=== PATIENT | female | born 1965 | race Caucasian/White ===

== ENCOUNTER 2022-09-14 04:06 | Inpatient (IN) | payer BC, OTHER ==
[2022-09-14] MEDS ORDERED: FUROSEMIDE 10 MG/ML 4 ML VIAL IV STA (04:15)
[2022-09-14 04:33] LABS: Basophils # (A) 0.1 k/uL (0-0.2); Basophils % (A) 1 %; Eosinophils # (A) 0.2 k/uL (0-0.7); Eosinophils % (A) 2 %; HCT 46.3 % (34.0-46.0); HGB 15.7 gm/dL (11.4-16.0); Lymphocytes # (A) 2.5 k/uL (1.0-4.8); Lymphocytes % (A) 22 %; MCHC 33.8 g/dL (31.0-37.0); MCV 88.9 fL (80.0-100.0); Monocytes # (A) 0.4 k/uL (0-1.0); Monocytes % (A) 4 %; Neutrophils # (A) 7.8 k/uL (1.3-7.7); Neutrophils % (A) 70 %; Platelet Count 189 k/uL (150-450); RBC 5.21 m/uL (3.80-5.40); RDW 13.9 % (11.5-15.5); WBC 11.2 k/uL (3.8-10.6)
[2022-09-14 04:41] LABS: Prothrombin Time 10.4 sec (9.0-12.0)
[2022-09-14 04:43] LABS: Albumin 4.7 g/dL (3.5-5.0); Calcium 9.5 mg/dL (8.4-10.2); Magnesium 1.6 mg/dL (1.6-2.3); Potassium 3.5 mmol/L (3.5-5.1); Total Bilirubin 0.8 mg/dL (0.2-1.3); Total Protein 7.3 g/dL (6.3-8.2)
--- NOTE | 2022-09-14 04:58 | XR ---
EXAMINATION TYPE: XR chest 1V portable DATE OF EXAM: 09/14/2022 COMPARISON: NONE HISTORY: Abnormal breath TECHNIQUE: Single view FINDINGS: Heart is borderline enlarged. There is moderate pulmonary airspace edema. There are chest l cyndi. Bony thorax is intact. IMPRESSION: Moderate pulmonary edema that could be congestive heart failure. Also consider RDS.
--- NOTE | 2022-09-14 05:48 | ED ---
SOB HPI - General Chief Complaint: Shortness of Breath Stated Complaint: Difficulty Breathing Time Seen by Provider: 09/14/22 04:15 Source: EMS Mode of arrival: EMS Limitations: no limitations - History of Present Illness Initial Comments: 57-year-old female with past history of hypertension, tobacco abuse presents to the emergency department in respiratory distress. EMS provided the history. States the patient had sudden onset of respiratory distress just prior to calling EMS. She denies history of cardiac or pulmonary issues. Patient was found to have an extremely elevated blood pressure. She had some lower extremity swelling. Denies history of coronary disease. No history of congestive heart failure. Does admit to some weight gain. She denies chest pain. No fevers, chills or cough. No history of DVT or PE. No sick contacts of similar symptoms. Does not use nebulizers or inhalers. HPI is limited due to the patient's respiratory distress. She was found to be saturating in the low 80s and was placed on CPAP prior to hospital arrival. No other alleviating, precipitating or modifying factors - Related Data Home Medications Medication Instructions Recorded Confirmed Aspirin EC [Ecotrin Low Dose] 81 mg PO DAILY 09/14/22 09/14/22 Cyclobenzaprine [Flexeril] 10 mg PO TID 09/14/22 09/14/22 Fluticasone Nasal [place] [Flonase 2 spray EA NOSTRIL BID 09/14/22 09/14/22 Nasal [place]] Omeprazole [PriLOSEC] 20 mg PO BID 09/14/22 09/14/22 Ondansetron Odt [Zofran ODT] 4 mg PO Q8H PRN 09/14/22 09/14/22 Propranolol HCl [Propranolol HCl 80 mg PO HS 09/14/22 09/14/22 ER] QUEtiapine [SEROquel] 500 mg PO HS 09/14/22 09/14/22 Sertraline [Zoloft] 100 mg PO DAILY 09/14/22 09/14/22 busPIRone HCL 15 mg PO TID 09/14/22 09/14/22 Previous Rx's Medication Instructions Recorded Amiodarone [Cordarone] See Rx Instructions .ROUTE 09/18/22 .COMPLEX #60 tab Apixaban [Eliquis] 5 mg PO BID #120 tab 09/18/22 Atorvastatin [Lipitor] 40 mg PO HS #90 tab 09/18/22 Furosemide [Lasix] 20 mg PO DAILY #90 tab 09/18/22 Losartan [Cozaar] 12.5 mg PO DAILY #90 tab 09/18/22 Allergies Allergy/AdvReac Type Severity Reaction Status Date / Time No Known Allergies Allergy Verified 09/14/22 09:16 Review of Systems ROS Statement: Those systems with pertinent positive or pertinent negative responses have been documented in the HPI. ROS Other: All systems not noted in ROS Statement are negative. Past Medical History Past Medical History: Hypertension Additional Past Surgical History / Comment(s): spinal implant in back, knee replacement Smoking Status: Current every day smoker Past Alcohol Use History: None Reported Past Drug Use History: None Reported - Past Family History Mother Family Medical History: Congestive Heart Failure (CHF) General Exam Limitations: no limitations General appearance: alert, in distress Head exam: Present: atraumatic, normocephalic, normal inspection Eye exam: Present: normal appearance, PERRL, EOMI. Absent: scleral icterus, conjunctival injection, periorbital swelling ENT exam: Present: normal exam, mucous membranes moist Neck exam: Present: normal inspection. Absent: tenderness, meningismus, lymphadenopathy Respiratory exam: Present: respiratory distress, rales, accessory muscle use, other (tachypnia). Absent: wheezes, rhonchi, stridor Cardiovascular Exam: Present: regular rate, normal rhythm, normal heart sounds. Absent: systolic murmur, diastolic murmur, rubs, gallop, clicks GI/Abdominal exam: Present: soft, normal bowel sounds. Absent: distended, tenderness, guarding, rebound, rigid Extremities exam: Present: full ROM, normal capillary refill, pedal edema. Absent: tenderness, joint swelling, calf tenderness Back exam: Present: normal inspection Neurological exam: Present: alert, oriented X3, CN II-XII intact Psychiatric exam: Present: normal affect, normal mood Skin exam: Present: warm, dry, intact, normal color. Absent: rash Course Vital Signs 09/14/22 09/14/22 09/14/22 04:07 04:08 04:15 Temperature 98.0 F Pulse Rate 96 Pulse Rate [ Head Holder ] Respiratory 36 H Rate Blood Pressure 191/125 Blood Pressure [Left Arm] O2 Sat by Pulse 95 Oximetry Fraction of 100 100 Inspired Oxygen (FIO2) 09/14/22 09/14/22 09/14/22 04:16 04:21 04:27 Temperature Pulse Rate Pulse Rate [ Head Holder ] Respiratory 36 H Rate Blood Pressure Blood Pressure [Left Arm] O2 Sat by Pulse Oximetry Fraction of 80 65 Inspired Oxygen (FIO2) 09/14/22 09/14/22 09/14/22 04:55 05:40 07:20 Temperature Pulse Rate 95 72 Pulse Rate [ Head Holder ] Respiratory 32 H 20 Rate Blood Pressure 168/109 155/93 Blood Pressure [Left Arm] O2 Sat by Pulse 95 98 Oximetry Fraction of 50 Inspired Oxygen (FIO2) 09/14/22 09/14/22 09/14/22 07:22 08:21 08:35 Temperature Pulse Rate 73 96 Pulse Rate [ Head Holder ] Respiratory 20 22 Rate Blood Pressure 160/86 166/98 Blood Pressure [Left Arm] O2 Sat by Pulse 98 100 Oximetry Fraction of 50 Inspired Oxygen (FIO2) 09/14/22 09/14/22 09/14/22 10:00 10:55 11:00 Temperature Pulse Rate 89 82 Pulse Rate [ Head Holder ] Respiratory 22 22 Rate Blood Pressure 164/90 175/93 Blood Pressure [Left Arm] O2 Sat by Pulse 100 97 Oximetry Fraction of 40 40 40 Inspired Oxygen (FIO2) 09/14/22 09/14/22 09/14/22 12:00 13:00 15:56 Temperature Pulse Rate 76 82 Pulse Rate [ Head Holder ] Respiratory 18 16 Rate Blood Pressure 168/96 174/86 Blood Pressure [Left Arm] O2 Sat by Pulse 97 98 Oximetry Fraction of 40 40 40 Inspired Oxygen (FIO2) 09/14/22 09/14/22 09/14/22 16:30 17:18 19:30 Temperature 98.6 F Pulse Rate 179 H Pulse Rate [ 89 Head Holder ] Respiratory 20 28 H Rate Blood Pressure 168/106 Blood Pressure 177/95 [Left Arm] O2 Sat by Pulse 98 95 Oximetry Fraction of 40 Inspired Oxygen (FIO2) 09/14/22 09/14/22 09/14/22 19:47 19:56 20:09 Temperature Pulse Rate 111 H 99 Pulse Rate [ Head Holder ] Respiratory 20 18 Rate Blood Pressure 187/109 169/94 Blood Pressure [Left Arm] O2 Sat by Pulse 99 98 96 Oximetry Fraction of Inspired Oxygen (FIO2) 03/08/23 03/08/23 20:22 20:47 Temperature 97.7 F 98.2 F Pulse Rate 93 Pulse Rate [ 98 Head Holder ] Respiratory 18 19 Rate Blood Pressure Blood Pressure 165/107 [Left Arm] O2 Sat by Pulse 96 97 Oximetry Fraction of Inspired Oxygen (FIO2) Medical Decision Making - Medical Decision Making Was pt. sent in by a medical professional or institution (CORIE Hinson, DISASTER RESPONSE DIRECTOR, urgent care, hospital, or fci...) When possible be specific @ -No Did you speak to anyone other than the patient for history (EMS, parent, family, police, friend...)? What history was obtained from this source @ - Did you review nursing and triage notes (agree or disagree)? Why? @ -I reviewed and agree with nursing and triage notes Were old charts reviewed (outside hosp., previous admission, EMS record, old EKG, old radiological studies, urgent care reports/EKG's, fci records)? Report findings @ -No old charts were reviewed Differential Diagnosis (chest pain, altered mental status, abdominal pain women, abdominal pain men, vaginal bleeding, weakness, fever, dyspnea, syncope, headache, dizziness, GI bleed, back pain, seizure, CVA, palpatations, mental health, musculoskeletal)? @ -new onset chf, mi, copd, pe EKG interpreted by me (3pts min.). @ -As above X-rays interpreted by me (1pt min.). @ -Yes CT interpreted by me (1pt min.). @ -None done U/S interpreted by me (1pt. min.). @ -None done What testing was considered but not performed or refused? (CT, X-rays, U/S, labs)? Why? @ -None What meds were considered but not given or refused? Why? @ -None Did you discuss the management of the patient with other professionals (pro fessionals i.e. CORIE Hinson, DISASTER RESPONSE DIRECTOR, lab, RT, psych nurse, high school social studies teacher, fuels sales representative, teacher, chief informatics officer, case supervisor)? Give summary @ -admitting physician Was smoking cessation discussed for >3mins.? @ -No Was critical care preformed (if so, how long)? @ -yes, 35 minutes Were there social determinants of health that impacted care today? How? (Homelessness, low income, unemployed, alcoholism, drug addiction, transportation, low edu. Level, literacy, decrease access to med. care, snf, re hab)? @ -No Was there de-escalation of care discussed even if they declined (Discuss DNR or withdrawal of care, Hospice)? DNR status @ -No What co-morbidities impacted this encounter? (DM, HTN, Smoking, COPD, CAD, Cancer, CVA, ARF, Chemo, Hep., AIDS, mental health diagnosis, sleep apnea, morbid obesity)? @ -None Was patient admitted / discharged? Hospital course, mention meds given and route, prescriptions, significant lab abnormalities, going to OR and other pertinent info. @ -Upon arrival patient was placed into trauma bay 1. Thorough history and physical exam is performed. Patient is switched from CPAP to BiPAP. Portable chest x-rays performed. She is placed on continuous pulse ox and cardiac monitoring. Laboratory studies are obtained and reviewed. Be DISASTER RESPONSE DIRECTOR is mildly elevated. Chest x-ray demonstrates pulmonary edema. She was given a dose of Lasix. Recommended admission for which the patient was agreeable. Spoke with Dr. Linder who agreed to admit the patient Undiagnosed new problem with uncertain prognosis? @ -Yes Drug Therapy requiring intensive monitoring for toxicity (Heparin, Nitro, Insulin, Cardizem)? @ -No Were any procedures done? @ -No Diagnosis/symptom? @ -bipap dependant resp failure, new onset chf Acute, or Chronic, or Acute on Chronic? @ -acute Uncomplicated (without systemic symptoms) or Complicated (systemic symptoms)? @ -complicated Side effects of treatment? @ -No Exacerbation, Progression, or Severe Exacerbation? @ -new diagnosis Poses a threat to life or bodily function? How? (Chest pain, [place], [place], pneumonia, PE, COPD, DKA, ARF, appy, cholecystitis, CVA, Diverticulitis, Homicidal, Suicidal, threat to staff... and all critical care pts) @ -Yes - Lab Data Result diagrams: 09/16/22 06:19 09/18/22 06:52 Lab Results 09/14/22 09/14/22 09/14/22 Range/Units 04:21 04:21 04:21 WBC 11.2 H (3.8-10.6) k/uL RBC 5.21 (3.80-5.40) m/uL Hgb 15.7 (11.4-16.0) gm/dL Hct 46.3 H (34.0-46.0) % MCV 88.9 (80.0-100.0) fL MCH 30.0 (25.0-35.0) pg MCHC 33.8 (31.0-37.0) g/dL RDW 13.9 (11.5-15.5) % Plt Count 189 (150-450) k/uL MPV 9.0 Neutrophils % 70 % Lymphocytes % 22 % Monocytes % 4 % Eosinophils % 2 % Basophils % 1 % Neutrophils # 7.8 H (1.3-7.7) k/uL Lymphocytes # 2.5 (1.0-4.8) k/uL Monocytes # 0.4 (0-1.0) k/uL Eosinophils # 0.2 (0-0.7) k/uL Basophils # 0.1 (0-0.2) k/uL PT 10.4 (9.0-12.0) sec INR 1.0 (<1.2) APTT 23.0 (22.0-30.0) sec Sodium 141 (137-145) mmol/L Potassium 3.5 (3.5-5.1) mmol/L Chloride 109 H (98-107) mmol/L Carbon Dioxide 20 L (22-30) mmol/L Anion Gap 12 mmol/L BUN 12 (7-17) mg/dL Creatinine 0.84 (0.52-1.04) mg/dL Est GFR (CKD-EPI)AfAm 89 (>60 ml/min/1.73 sqM) Est GFR (CKD-EPI)NonAf 77 (>60 ml/min/1.73 sqM) Glucose 209 H (74-99) mg/dL Lactic Ac Sepsis Rflx Plasma Lactic Acid Jonathan (0.7-2.0) mmol/L Calcium 9.5 (8.4-10.2) mg/dL Magnesium 1.6 (1.6-2.3) mg/dL Total Bilirubin 0.8 (0.2-1.3) mg/dL AST 25 (14-36) U/L ALT 30 (4-34) U/L Alkaline Phosphatase 81 (38-126) U/L Troponin I (0.000-0.034) ng/mL NT-Pro-B Natriuret Pep pg/mL Total Protein 7.3 (6.3-8.2) g/dL Albumin 4.7 (3.5-5.0) g/dL Influenza Type A (PCR) (Not Detectd) Influenza Type B (PCR) (Not Detectd) RSV (PCR) (Not Detectd) SARS-CoV-2 (PCR) (Not Detectd) 09/14/22 09/14/22 09/14/22 Range/Units 04:21 04:21 04:21 WBC (3.8-10.6) k/uL RBC (3.80-5.40) m/uL Hgb (11.4-16.0) gm/dL Hct (34.0-46.0) % MCV (80.0-100.0) fL MCH (25.0-35.0) pg MCHC (31.0-37.0) g/dL RDW (11.5-15.5) % Plt Count (150-450) k/uL MPV Neutrophils % % Lymphocytes % % Monocytes % % Eosinophils % % Basophils % % Neutrophils # (1.3-7.7) k/uL Lymphocytes # (1.0-4.8) k/uL Monocytes # (0-1.0) k/uL Eosinophils # (0-0.7) k/uL Basophils # (0-0.2) k/uL PT (9.0-12.0) sec INR (<1.2) APTT (22.0-30.0) sec Sodium (137-145) mmol/L Potassium (3.5-5.1) mmol/L Chloride (98-107) mmol/L Carbon Dioxide (22-30) mmol/L Anion Gap mmol/L BUN (7-17) mg/dL Creatinine (0.52-1.04) mg/dL Est GFR (CKD-EPI)AfAm (>60 ml/min/1.73 sqM) Est GFR (CKD-EPI)NonAf (>60 ml/min/1.73 sqM) Glucose (74-99) mg/dL Lactic Ac Sepsis Rflx Plasma Lactic Acid Jonathan 2.6 H* (0.7-2.0) mmol/L Calcium (8.4-10.2) mg/dL Magnesium (1.6-2.3) mg/dL Total Bilirubin (0.2-1.3) mg/dL AST (14-36) U/L ALT (4-34) U/L Alkaline Phosphatase (38-126) U/L Troponin I <0.012 (0.000-0.034) ng/mL NT-Pro-B Natriuret Pep 920 pg/mL Total Protein (6.3-8.2) g/dL Albumin (3.5-5.0) g/dL Influenza Type A (PCR) (Not Detectd) Influenza Type B (PCR) (Not Detectd) RSV (PCR) (Not Detectd) SARS-CoV-2 (PCR) (Not Detectd) 09/14/22 09/14/22 Range/Units 04:41 04:44 WBC (3.8-10.6) k/uL RBC (3.80-5.40) m/uL Hgb (11.4-16.0) gm/dL Hct (34.0-46.0) % MCV (80.0-100.0) fL MCH (25.0-35.0) pg MCHC (31.0-37.0) g/dL RDW (11.5-15.5) % Plt Count (150-450) k/uL MPV Neutrophils % % Lymphocytes % % Monocytes % % Eosinophils % % Basophils % % Neutrophils # (1.3-7.7) k/uL Lymphocytes # (1.0-4.8) k/uL Monocytes # (0-1.0) k/uL Eosinophils # (0-0.7) k/uL Basophils # (0-0.2) k/uL PT (9.0-12.0) sec INR (<1.2) APTT (22.0-30.0) sec Sodium (137-145) mmol/L Potassium (3.5-5.1) mmol/L Chloride (98-107) mmol/L Carbon Dioxide (22-30) mmol/L Anion Gap mmol/L BUN (7-17) mg/dL Creatinine (0.52-1.04) mg/dL Est GFR (CKD-EPI)AfAm (>60 ml/min/1.73 sqM) Est GFR (CKD-EPI)NonAf (>60 ml/min/1.73 sqM) Glucose (74-99) mg/dL Lactic Ac Sepsis Rflx Y Plasma Lactic Acid Jonathan (0.7-2.0) mmol/L Calcium (8.4-10.2) mg/dL Magnesium (1.6-2.3) mg/dL Total Bilirubin (0.2-1.3) mg/dL AST (14-36) U/L ALT (4-34) U/L Alkaline Phosphatase (38-126) U/L Troponin I (0.000-0.034) ng/mL NT-Pro-B Natriuret Pep pg/mL Total Protein (6.3-8.2) g/dL Albumin (3.5-5.0) g/dL Influenza Type A (PCR) Not Detected (Not Detectd) Influenza Type B (PCR) Not Detected (Not Detectd) RSV (PCR) Not Detected (Not Detectd) SARS-CoV-2 (PCR) Not Detected (Not Detectd) - EKG Data EKG Comments: EKG demonstrates sinus rhythm at a rate of 92. [place] interval 180. QRS 89. QTC of 411. No acute ST segment elevations or depressions Critical Care Time Critical Care Time: Yes Critical Care Time: 35 minutes Disposition Clinical Impression: Congestive heart failure, Hypoxia Disposition: ADMITTED IP TO THIS HOSP Condition: Stable Is patient prescribed a controlled substance at d/c from ED?: No Time of Disposition: 05:52 Decision to Admit Reason: Admit from EC Decision Date: 09/14/22 Decision Time: 05:52
[2022-09-14] MEDS ORDERED: NALOXONE 0.4 MG/ML 1 ML VIAL IV PRN (05:50)
--- NOTE | 2022-09-14 05:52 | P.HPIM ---
History of Present Illness H&P Date: 09/14/22 The patient is a 57-year-old female with a PMH of hypertension who presents to the emergency room with complaints of shortness of breath and lower extremity edema. The patient reports that over the past 3 days she has noticed gradually worsening lower extremity edema and that earlier tonight at around 1 AM, she developed quickly worsening shortness of breath. The patient was started on CPAP in the field. Upon arrival at the emergency room, the patient's SpO2 is 95% on BiPAP with respiratory rate 36, BP 191/125, and temp 98.0F. The patient denied prior history of coronary artery disease or congestive heart failure. Reports routine visits with her doctor last seen a few months ago. Patient denied chest discomfort, cough, fever, chills, nausea, vomiting, abdominal pain, lower extremity swelling, lower extremity pain. Chest x-ray in the emergency room revealed pulmonary edema. Review of systems: Pertinent positives and negatives as discussed in HPI, a complete review of systems was performed and all other systems are negative. Physical examination: Vital signs reviewed General: non toxic, no distress, appears at stated age, obese Derm: no unusual rashes/lesions, warm Head: atraumatic, normocephalic, symmetric Eyes: EOMI, no lid lag, anicteric sclera, pupils equal round reactive to light ENT: Nose and ears atraumatic Neck: No cervical lymphadenopathy, trachea midline, supple Mouth: no lip lesion, mucus membranes moist Cardiovascular: S1S2 reg, no murmur, positive dorsalis pedis pulse bilateral, 1+ bilateral lower extremity pitting edema Lungs: Bilateral rales without wheezing, no accessory muscle use Abdominal: soft, nontender to palpation, no guarding Ext: muscle strength 5 out of 5 in all 4 extremities grossly, no gross muscle atrophy, no contractures, Neuro: CN II-XI grossly intact, no gross focal neuro deficits Psych: Alert, oriented, appropriate affect Assessment: Acute CHF exacerbation, newly diagnosed Lactic acidosis Leukocytosis Imaging: Chest x-ray in the emergency room as reviewed by me was consistent with fluid overload with cardiomegaly. EKG as reviewed by me revealed sinus rhythm at [address]/T-wave changes noted as reviewed by me. Data Review: Laboratory evaluation was remarkable for troponin less than 0.02, WBC count 11.2, hemoglobin 15.7, platelets 189, sodium 141, potassium 3.5, chloride 109, CO2 20, BUN 12, creatinine 0.4, and lactic acid 2.6. Plan: Continue with Lasix 40 mg IV every 12 hourly Intake and output Daily weights Cardiology consult Echocardiogram Trend troponin Monitor electrolytes daily while on IV Lasix Leukocytosis likely secondary to acute stressor No signs of active infection at this time Monitor lactic acid levels for resolution C/w Bipap for now DVT prophylaxis: Heparin subq The patient is admitted with an anticipated greater than 2 midnight stay for evaluation of acute CHF CODE STATUS: Full Code Discussed with: Patient Anticipated discharge place: Home Past Medical History Past Medical History: Hypertension Additional Past Surgical History / Comment(s): spinal implant in back, knee replacement Smoking Status: Current every day smoker Past Alcohol Use History: None Reported Past Drug Use History: None Reported - Past Family History Mother Family Medical History: Congestive Heart Failure (CHF) Medications and Allergies Allergies Allergy/AdvReac Type Severity Reaction Status Date / Time No Known Allergies Allergy Verified 09/14/22 04:13 Physical Exam Vitals: Vital Signs Temp Pulse Resp BP Pulse Ox FiO2 09/14/22 05:40 50 09/14/22 04:55 95 32 H 168/109 95 09/14/22 04:27 65 09/14/22 04:21 80 09/14/22 04:16 36 H 09/14/22 04:15 100 09/14/22 04:08 100 09/14/22 04:07 98.0 F 96 36 H 191/125 95 Intake and Output 09/13/22 09/13/22 09/14/22 14:59 22:59 06:59 Other: Weight 108.862 kg Results CBC & Chem 7: 09/14/22 04:21 09/14/22 04:21 Labs: Abnormal Lab Results - Last 24 Hours (Table) 09/14/22 09/14/22 09/14/22 Range/Units 04:21 04:21 04:21 WBC 11.2 H (3.8-10.6) k/uL Hct 46.3 H (34.0-46.0) % Neutrophils # 7.8 H (1.3-7.7) k/uL Chloride 109 H (98-107) mmol/L Carbon Dioxide 20 L (22-30) mmol/L Glucose 209 H (74-99) mg/dL Plasma Lactic Acid Jonathan 2.6 H* (0.7-2.0) mmol/L
[2022-09-14] MEDS: FUROSEMIDE 10 MG/ML 4 ML VIAL IV SCH ×2 (07:14→16:50)
[2022-09-14] MEDS: HEPARIN SODIUM,PORCINE/PF 5,000 UNIT/0.5 ML SYRINGE SQ SCH ×2 (09:38→16:32)
[2022-09-14] MEDS: ACETAMINOPHEN TAB 500 MG TAB PO PRN (12:16)
--- NOTE | 2022-09-14 13:48 | P.PN ---
Progress Note - Text Progress Note Date: 09/14/22 Hospitalist Interval Note Patient seen and examined at bedside. Vital signs reviewed General: non toxic, no distress, appears at stated age Derm: warm, dry Head: atraumatic, normocephalic, symmetric Eyes: EOMI, no lid lag, anicteric sclera Mouth: no lip lesion, mucus membranes moist Cardiovascular: S1S2 reg, no murmur, positive posterior tibial pulse bilateral, Lungs: Bilateral rales, on BiPAP Abdominal: soft, nontender to palpation, no guarding, no appreciable organomegaly Ext: no gross muscle atrophy, 2+ pitting edema to midshin, no contractures Neuro: CN II-XI grossly intact, no focal neuro deficits Psych: Alert, oriented, appropriate affect Assessment/Plan: Acute CHF exacerbation, newly diagnosed Elevated troponin, demand ischemia Lactic acidosis Leukocytosis -Continue IV diuresis -On BiPAP -Cardiology consult This is an update note for patient. There is no charge associated with this note.
--- NOTE | 2022-09-14 14:33 | P.CRDCN ---
History of Present Illness History of present illness: HISTORY OF PRESENT ILLNESS: This is a 57-year-old with a past medical history significant for hypertension, hyperlipidemia, and depression. Patient does not follow with a med aide. We have been asked to see the patient in consultation for congestive heart failure. Patient presented to the hospital with a chief complaint of shortness of breath and worsening lower extremity edema. Patient examined at the bedside in the emergency room. The patient states she started having shortness of breath yesterday. She also reports having some increased lower extremity edema. She reports having gained 20 pounds in the last month. She does report eating a diet high in salt. She reports that she is a current smoker and smokes half a pack per day. The patient is currently on a BiPAP. She states her shortness of breath has improved since coming to the hospital. She was started on IV Lasix 40 mg every 12 hours. Patient's blood pressure elevated at the time of examination with a recent reading of 167/100. * EKG reveals sinus mechanism with no signs of acute ischemia * Chest xray moderate pulmonary edema that could be congestive heart failure. * Laboratory data: WBC 11.2. Hemoglobin 15.7. Platelet count 189. Sodium 141. Potassium 3.5. BUN 12. Creatinine 0.84. ProBNP 920. Troponin 0.012. 0.037. 0.038. 0.033. * Current home cardiac medications include losartan 100 mg daily, Lipitor 10 mg at night, aspirin 81 mg daily, propanolol 80 mg at night REVIEW OF SYSTEMS: At the time of my exam: CONSTITUTIONAL: Denies fever or chills. HEENT: Denies blurred vision, vision changes, or eye pain. Denies hemoptysis CARDIOVASCULAR: Denies chest pain. Denies orthopnea. Denies PND. Denies palpitations RESPIRATORY: Reports shortness of breath. GASTROINTESTINAL: Denies abdominal pain. Denies nausea or vomiting. HEMATOLOGIC: Denies bleeding disorders. GENITOURINARY: Denies any blood in urine. SKIN: Denies pruitis. Denies rash. PHYSICAL EXAM: VITAL SIGNS: Reviewed. GENERAL: Well-developed in no acute distress. HEENT: Head is normocephalic. Pupils are equal, round. Sclerae anicteric. Mucous membranes of the mouth are moist. Neck supple. No JVD or thyromegaly LUNGS: Respirations even and unlabored. Lungs diminished with rhonchi and crackles at the bases HEART: Regular rate and rhythm. S1 and S2 heard. Soft murmur noted ABDOMEN: Soft. Nondistended. Nontender. EXTREMITIES: Normal range of motion. No clubbing or cyanosis. Peripheral pulses intact. Trace bilateral lower extremity edema NEUROLOGIC: Awake and alert. Oriented x 3. ASSESSMENT: Acute congestive heart failure, type unknown, echo pending, BNP minimally elevated at 920 Acute hypoxic respiratory failure, on BiPAP, suspect some pulmonary component along with CHF Mildly elevated troponins, flat, likely secondary to above, acute coronary syndrome ruled out Hypertension Hyperlipidemia Depression Nicotine dependence, patient smokes 1/2 pack per day. PLAN: Obtain 2-D echo to assess cardiac structure and function Continue IV Lasix Daily weights, accurate I&O, and monitor kidney function Resume home cardiac medications Add Norvasc for optimal blood pressure control Consult pulmonary for evaluation Further recommendations pending patient's course Nurse practitioner note has been reviewed by physician. Signing provider agrees with the documented findings, assessment, and plan of care. Past Medical History Past Medical History: Hypertension Additional Past Surgical History / Comment(s): spinal implant in back, knee replacement Smoking Status: Current every day smoker Past Alcohol Use History: None Reported Past Drug Use History: None Reported - Past Family History Mother Family Medical History: Congestive Heart Failure (CHF) Medications and Allergies Home Medications Medication Instructions Recorded Confirmed Type Aspirin EC [Ecotrin Low Dose] 81 mg PO DAILY 09/14/22 09/14/22 History Atorvastatin [Lipitor] 10 mg PO HS 09/14/22 09/14/22 History Cyclobenzaprine [Flexeril] 10 mg PO TID 09/14/22 09/14/22 History Fluticasone Nasal [place] [Flonase 2 spray EA NOSTRIL BID 09/14/22 09/14/22 History Nasal [place]] Ibuprofen [Motrin] 600 mg PO Q6HR PRN 09/14/22 09/14/22 History Losartan Potassium [Cozaar] 100 mg PO DAILY 09/14/22 09/14/22 History Omeprazole [PriLOSEC] 20 mg PO BID 09/14/22 09/14/22 History Ondansetron Odt [Zofran Odt] 4 mg PO Q8H PRN 09/14/22 09/14/22 History Propranolol HCl [Propranolol HCl 80 mg PO HS 09/14/22 09/14/22 History ER] QUEtiapine [SEROquel] 500 mg PO HS 09/14/22 09/14/22 History Sertraline [Zoloft] 100 mg PO DAILY 09/14/22 09/14/22 History busPIRone HCL 15 mg PO TID 09/14/22 09/14/22 History Allergies Allergy/AdvReac Type Severity Reaction Status Date / Time No Known Allergies Allergy Verified 09/14/22 09:16 Physical Exam Vitals: Vital Signs Temp Pulse Resp BP Pulse Ox FiO2 09/14/22 13:00 82 16 174/86 98 40 09/14/22 12:00 76 18 168/96 97 40 09/14/22 11:00 82 22 175/93 97 40 09/14/22 10:55 40 09/14/22 10:00 89 22 164/90 100 40 09/14/22 08:35 96 22 166/98 100 09/14/22 08:21 50 09/14/22 07:22 73 20 160/86 98 09/14/22 07:20 72 20 155/93 98 09/14/22 05:40 50 09/14/22 04:55 95 32 H 168/109 95 09/14/22 04:27 65 09/14/22 04:21 80 09/14/22 04:16 36 H 09/14/22 04:15 100 09/14/22 04:08 100 09/14/22 04:07 98.0 F 96 36 H 191/125 95 Intake and Output 09/13/22 09/14/22 09/14/22 22:59 06:59 14:59 Output Total 700 Balance -700 Output: Urine 700 Other: Weight 108.862 kg Results 09/14/22 04:21 09/14/22 04:21 Cardiac Enzymes 09/14/22 09/14/22 09/14/22 Range/Units 04:21 04:21 07:22 AST 25 (14-36) U/L Troponin I <0.012 0.037 H* (0.000-0.034) ng/mL 09/14/22 09/14/22 Range/Units 08:33 11:27 AST (14-36) U/L Troponin I 0.038 H* 0.033 (0.000-0.034) ng/mL Coagulation 09/14/22 Range/Units 04:21 PT 10.4 (9.0-12.0) sec APTT 23.0 (22.0-30.0) sec CBC 09/14/22 Range/Units 04:21 WBC 11.2 H (3.8-10.6) k/uL RBC 5.21 (3.80-5.40) m/uL Hgb 15.7 (11.4-16.0) gm/dL Hct 46.3 H (34.0-46.0) % Plt Count 189 (150-450) k/uL Comprehensive Metabolic Panel 09/14/22 Range/Units 04:21 Sodium 141 (137-145) mmol/L Potassium 3.5 (3.5-5.1) mmol/L Chloride 109 H (98-107) mmol/L Carbon Dioxide 20 L (22-30) mmol/L BUN 12 (7-17) mg/dL Creatinine 0.84 (0.52-1.04) mg/dL Glucose 209 H (74-99) mg/dL Calcium 9.5 (8.4-10.2) mg/dL AST 25 (14-36) U/L ALT 30 (4-34) U/L Alkaline Phosphatase 81 (38-126) U/L Total Protein 7.3 (6.3-8.2) g/dL Albumin 4.7 (3.5-5.0) g/dL Current Medications Generic Name Dose Route Start Last Admin Trade Name Freq PRN Reason Stop Dose Admin Acetaminophen 1,000 mg 09/14/22 11:31 09/14/22 12:16 Acetaminophen Tab 500 Mg Tab PO 1,000 mg Q8H PRN Administration Fever and/ or Pain Furosemide 40 mg 09/14/22 06:00 09/14/22 07:14 Furosemide 10 Mg/Ml 4 Ml Vial IV Not Given Q12H [facility] Heparin Sodium (Porcine) 5,000 unit 09/14/22 08:00 09/14/22 09:38 Heparin Sodium,Porcine/Pf 5,000 Unit/0.5 Ml Syringe SQ 5,000 unit Q8HR [facility]ONIA Administration Naloxone HCl 0.2 mg 09/14/22 05:50 Naloxone 0.4 Mg/Ml 1 Ml Vial IV Q2M PRN Opioid Reversal Intake and Output 09/13/22 09/14/22 09/14/22 22:59 06:59 14:59 Output Total 700 Balance -700 Output: Urine 700 Other: Weight 108.862 kg 09/14/22 04:21 09/14/22 04:21
[2022-09-14] MEDS: busPIRone HCl 5 MG TAB PO SCH ×2 (16:32→21:40)
[2022-09-14] MEDS: CYCLOBENZAPRINE 10 MG TAB PO SCH ×2 (16:33→21:40)
[2022-09-14] MEDS: amLODIPine 5 MG TAB PO SCH (16:33)
[2022-09-14] MEDS ORDERED: DILTIAZEM 125 MG in SODIUM CHLORIDE 0.9% 100 ML IV SCH (17:45)
[2022-09-14] MEDS ORDERED: DILTIAZEM DRIP BOLUS FROM BAG 1 MG SOLN IV STA (17:45)
[2022-09-14] MEDS ORDERED: HEPARIN SODIUM 1,000 UN/ML (10ML VL) IV ONE (17:46)
[2022-09-14] MEDS ORDERED: HEPARIN SODIUM 1,000 UN/ML (10ML VL) IV PRN (17:46)
[2022-09-14] MEDS: ALPRAZolam 0.5 MG TAB PO PRN (18:10)
[2022-09-14] MEDS: HEPARIN SOD,PORK IN 0.45% NACL 25,000 UNIT in 0.45% NACL 1 250ML.BAG IV SCH (18:11)
[2022-09-14 18:50] LABS: African American GFR (CKD) >90 (>60 ml/min/1.73 sqM); Anion Gap 16 mmol/L; Blood Urea Nitrogen 14 mg/dL (7-17); Calcium 10.4 mg/dL (8.4-10.2); Carbon Dioxide 20 mmol/L (22-30); Chloride 102 mmol/L (98-107); Glucose 127 mg/dL (74-99); Non-African American GFR(CKD) >90 (>60 ml/min/1.73 sqM); Potassium 3.5 mmol/L (3.5-5.1); Sodium 138 mmol/L (137-145)
[2022-09-14] MEDS ORDERED: AMIODARONE 360 MG in DEXTROSE 5% IN WATER 200 ML IV ONE ×2 (19:50)
[2022-09-14] MEDS: ONDANSETRON 4 MG/2 ML VIAL IVP PRN (19:59)
[2022-09-14] MEDS: DEXTROSE 5% IN WATER 100 ML with AMIODARONE 150 MG IV ONE ×2 (20:02→20:52)
[2022-09-14] MEDS ORDERED: ATORVASTATIN 10 MG TAB PO SCH (21:00)
[2022-09-14] MEDS ORDERED: NITROGLYCERIN SL TABS 0.4 MG TAB SUBLINGUAL ONE (21:17)
[2022-09-14] MEDS ORDERED: MORPHINE SULFATE 4 MG/ML SYRINGE IVP STA (21:37)
[2022-09-14] MEDS: ATORVASTATIN 40 MG TAB PO SCH (21:40)
[2022-09-14] MEDS: FLUTICASONE 50MCG/SPRAY NASAL 16GM EA NOSTRIL SCH (21:40)
[2022-09-14] MEDS: QUEtiapine 100 MG TAB PO SCH (21:40)
[2022-09-14] MEDS: PROPRANOLOL LA 80 MG CAP.SA.24H PO SCH (21:40)
[2022-09-14] MEDS: PANTOPRAZOLE 40 MG TABLET PO SCH (21:41)
[2022-09-14] MEDS ORDERED: NITROGLYCERIN-D5W PMX 50 MG in DEXTROSE/WATER 1 250ML.BAG IV SCH (21:45)
[2022-09-15] MEDS ORDERED: hydrALAZINE HCL 25 MG TAB PO STA (01:43)
[2022-09-15] MEDS: AMIODARONE 450 MG in DEXTROSE 5% IN WATER 250 ML IV SCH ×4 (02:09→17:38)
[2022-09-15] MEDS: ACETAMINOPHEN TAB 500 MG TAB PO PRN (02:14)
[2022-09-15] MEDS ORDERED: cloNIDine HCL 0.2 MG TAB PO STA (03:53)
[2022-09-15] MEDS: ALPRAZolam 0.5 MG TAB PO PRN (03:58)
[2022-09-15 04:18] LABS: Glucose,Whole Blood 140 mg/dL (70-110)
[2022-09-15] MEDS: ONDANSETRON 4 MG/2 ML VIAL IVP PRN (06:14)
[2022-09-15] MEDS: PANTOPRAZOLE 40 MG TABLET PO SCH (06:15)
[2022-09-15] MEDS: FUROSEMIDE 10 MG/ML 4 ML VIAL IV SCH ×2 (06:15→17:39)
[2022-09-15 07:06] LABS: Basophils # (A) 0.1 k/uL (0-0.2); Basophils % (A) 1 %; Eosinophils # (A) 0.3 k/uL (0-0.7); Eosinophils % (A) 2 %; HCT 49.4 % (34.0-46.0); HGB 17.4 gm/dL (11.4-16.0); Lymphocytes # (A) 2.1 k/uL (1.0-4.8); Lymphocytes % (A) 10 %; MCHC 35.2 g/dL (31.0-37.0); Monocytes # (A) 0.9 k/uL (0-1.0); Monocytes % (A) 4 %; Neutrophils % (A) 84 %; Platelet Count 232 k/uL (150-450); RBC 5.61 m/uL (3.80-5.40); WBC 21.5 k/uL (3.8-10.6)
[2022-09-15 07:17] LABS: Partial Thromboplastin Time 25.6 sec (22.0-30.0); Prothrombin Time 10.2 sec (9.0-12.0)
[2022-09-15 07:33] LABS: African American GFR (CKD) >90 (>60 ml/min/1.73 sqM); Anion Gap 13 mmol/L; Blood Urea Nitrogen 19 mg/dL (7-17); Calcium 9.9 mg/dL (8.4-10.2); Carbon Dioxide 25 mmol/L (22-30); Chloride 98 mmol/L (98-107); Glucose 137 mg/dL (74-99); Magnesium 1.8 mg/dL (1.6-2.3); Non-African American GFR(CKD) >90 (>60 ml/min/1.73 sqM); Potassium 3.5 mmol/L (3.5-5.1); Sodium 136 mmol/L (137-145)
[2022-09-15] MEDS: FLUTICASONE 50MCG/SPRAY NASAL 16GM EA NOSTRIL SCH ×2 (07:50→20:27)
[2022-09-15] MEDS: amLODIPine 5 MG TAB PO SCH (07:50)
[2022-09-15] MEDS: SERTRALINE 100 MG TAB PO SCH (07:50)
[2022-09-15] MEDS: busPIRone HCl 5 MG TAB PO SCH ×3 (07:50→20:27)
[2022-09-15] MEDS: CYCLOBENZAPRINE 10 MG TAB PO SCH ×3 (07:50→20:27)
[2022-09-15] MEDS: LOSARTAN 50 MG TAB PO SCH (07:50)
[2022-09-15] MEDS: ASPIRIN 81 MG PO SCH (08:21)
[2022-09-15] MEDS ORDERED: amLODIPine 5 MG TAB PO ONE (08:30)
[2022-09-15 08:46] LABS: Appearance,Urine Clear (Clear); Bacteria,Urine Rare /hpf; Bilirubin,Urine Negative (Negative); Blood,Urine Moderate (Negative); Color,Urine Light Yellow; Glucose,Urine (UA) Negative (Negative); Ketones,Urine Negative (Negative); Leukocyte Esterase,Urine Negative (Negative); Mucus,Urine Rare /hpf; Nitrite,Urine Negative (Negative); Protein,Urine 1+ (Negative); RBC,Urine 31 /hpf (0-5); Specific Gravity,Urine 1.009 (1.001-1.035); Squamous Epithelial Cell,Urine 3 /hpf (0-4); Urobilinogen,Urine <2.0 mg/dL (<2.0); WBC,Urine 3 /hpf (0-5)
--- NOTE | 2022-09-15 10:05 | P.PN ---
Subjective Progress Note Date: 09/15/22 HISTORY OF PRESENT ILLNESS: This is a 57-year-old with a past medical history significant for hypertension, hyperlipidemia, and depression. 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 We have been asked to see the patient in consultation for congestive heart failure. Patient presented to the hospital with a chief complaint of shortness of breath and worsening lower extremity edema. Patient examined at the bedside in the emergency room. The patient states she started having shortness of breath yesterday. She also reports having some increased lower extremity edema. She reports having gained 20 pounds in the last month. She does report eating a diet high in salt. She reports that she is a current smoker and smokes half a pack per day. The patient is currently on a BiPAP. She states her shortness of breath has improved since coming to the hospital. She was started on IV Lasix 40 mg every 12 hours. Patient's blood pressure elevated at the time of examination with a recent reading of 167/100. * EKG reveals sinus mechanism with no signs of acute ischemia * Chest xray moderate pulmonary edema that could be congestive heart failure. * Laboratory data: WBC 11.2. Hemoglobin 15.7. Platelet count 189. Sodium 141. Potassium 3.5. BUN 12. Creatinine 0.84. ProBNP 920. Troponin 0.012. 0.037. 0.038. 0.033. * Current home cardiac medications include losartan 100 mg daily, Lipitor 10 mg at night, aspirin 81 mg daily, propanolol 80 mg at night 09/15/2022 Patient examined this morning at the bedside. Patient has been taken off Bipap and is currently tolerating nasal cannula. She reports improvement in her shortness of breath. She remains on IV lasix. Patient went into afib with RVR overnight. She was started on IV amio. She is maintaining sinus mechanism this morning. Patient reports having chest discomfort last night when she was in afib with RVR. She was started on IV nitro. She denies having any further episodes of chest pain or pressure. PHYSICAL EXAM: VITAL SIGNS: Reviewed. GENERAL: Well-developed in no acute distress. HEENT: Head is normocephalic. Pupils are equal, round. Sclerae anicteric. Mucous membranes of the mouth are moist. Neck supple. No JVD or thyromegaly LUNGS: Respirations even and unlabored. Lungs diminished. Mild left sided expiratory wheezing. HEART: Regular rate and rhythm. S1 and S2 heard. Soft murmur noted ABDOMEN: Soft. Nondistended. Nontender. EXTREMITIES: Normal range of motion. No clubbing or cyanosis. Peripheral pulses intact. Trace bilateral lower extremity edema NEUROLOGIC: Awake and alert. Oriented x 3. ASSESSMENT: Acute congestive heart failure, type unknown, echo pending, BNP minimally elevated at 920 Acute hypoxic respiratory failure, on BiPAP, suspect some pulmonary component along with CHF New onset paroxysmal atrial fibrillation with RVR, currently maintaining sinus mechanism Leukocytosis Mildly elevated troponins, flat, likely secondary to above, acute coronary syndrome ruled out Hypertension Hyperlipidemia Depression Nicotine dependence, patient smokes 1/2 pack per day. PLAN: 2D echo ordered. Await results. Continue IV Lasix Daily weights, accurate I&O, and monitor kidney function Continue cardiac medications Continue IV Heparin Continue IV amio Discontinue IV nitro Increase Norvasc to 10mg daily for optimal blood pressure control Consult pulmonary for evaluation Further recommendations pending patient's course Nurse practitioner note has been reviewed by physician. Signing provider agrees with the documented findings, assessment, and plan of care. Objective - Vital Signs Vital signs: Vital Signs Temp 97.6 F 09/15/22 07:43 Pulse 85 09/15/22 07:43 Resp 20 09/15/22 07:43 BP 161/97 09/15/22 07:43 Pulse Ox 94 L 09/15/22 07:43 FiO2 40 09/14/22 16:30 Intake & Output 09/14/22 09/15/22 09/15/22 18:59 06:59 18:59 Intake Total 136.221 Output Total 700 1075 Balance -700 -1075 136.221 Weight 108.862 kg 101.5 kg Intake: Intake, IV Titration 136.221 Amount Heparin Sod,Pork in 0.45% 136.221 NaCl 25,000 unit In 0.45 % NaCl 1 250ml.bag @ 9.19 UNITS/KG/HR 10.004 mls/ hr IV .Q24H [facility] Rx#: [id number] Output: Urine 700 1075 Other: Voiding Method External Catheter External Catheter # Bowel Movements 1 - Labs CBC & Chem 7: 09/15/22 06:36 09/15/22 06:36 Labs: Abnormal Lab Results - Last 24 Hours (Table) 0309/14/22 09/14/22 Range/Units 18:13 21:46 21:46 WBC (3.8-10.6) k/uL RBC (3.80-5.40) m/uL Hgb (11.4-16.0) gm/dL Hct (34.0-46.0) % Neutrophils # (1.3-7.7) k/uL APTT 45.1 H (22.0-30.0) sec Sodium (137-145) mmol/L Carbon Dioxide 20 L (22-30) mmol/L BUN (7-17) mg/dL Glucose 127 H (74-99) mg/dL POC Glucose (mg/dL) (70-110) mg/dL Calcium 10.4 H (8.4-10.2) mg/dL Troponin I 0.051 H* (0.000-0.034) ng/mL Urine Protein (Negative) Urine Blood (Negative) Urine RBC (0-5) /hpf Urine Bacteria (None) /hpf Urine Mucus (None) /hpf 09/15/22 09/15/22 09/15/22 Range/Units 00:52 04:17 06:36 WBC 21.5 H (3.8-10.6) k/uL RBC 5.61 H (3.80-5.40) m/uL Hgb 17.4 H (11.4-16.0) gm/dL Hct 49.4 H (34.0-46.0) % Neutrophils # 18.0 H (1.3-7.7) k/uL APTT (22.0-30.0) sec Sodium (137-145) mmol/L Carbon Dioxide (22-30) mmol/L BUN (7-17) mg/dL Glucose (74-99) mg/dL POC Glucose (mg/dL) 140 H (70-110) mg/dL Calcium (8.4-10.2) mg/dL Troponin I 0.061 H* (0.000-0.034) ng/mL Urine Protein (Negative) Urine Blood (Negative) Urine RBC (0-5) /hpf Urine Bacteria (None) /hpf Urine Mucus (None) /hpf 09/15/22 09/15/22 Range/Units 06:36 08:00 WBC (3.8-10.6) k/uL RBC (3.80-5.40) m/uL Hgb (11.4-16.0) gm/dL Hct (34.0-46.0) % Neutrophils # (1.3-7.7) k/uL APTT (22.0-30.0) sec Sodium 136 L (137-145) mmol/L Carbon Dioxide (22-30) mmol/L BUN 19 H (7-17) mg/dL Glucose 137 H (74-99) mg/dL POC Glucose (mg/dL) (70-110) mg/dL Calcium (8.4-10.2) mg/dL Troponin I (0.000-0.034) ng/mL Urine Protein 1+ H (Negative) Urine Blood Moderate H (Negative) Urine RBC 31 H (0-5) /hpf Urine Bacteria Rare H (None) /hpf Urine Mucus Rare H (None) /hpf
[2022-09-15 10:41] LABS: ALT 31 U/L (4-34); AST 25 U/L (14-36); African American GFR (CKD) >90 (>60 ml/min/1.73 sqM); Alkaline Phosphatase 90 U/L (38-126); Anion Gap 14 mmol/L; Blood Urea Nitrogen 20 mg/dL (7-17); Carbon Dioxide 24 mmol/L (22-30); Chloride 99 mmol/L (98-107); Glucose 122 mg/dL (74-99); Magnesium 1.7 mg/dL (1.6-2.3); Non-African American GFR(CKD) 81 (>60 ml/min/1.73 sqM); Potassium 3.6 mmol/L (3.5-5.1); Sodium 137 mmol/L (137-145); Total Protein 8.1 g/dL (6.3-8.2)
[2022-09-15] MEDS ORDERED: POTASSIUM CHLORIDE ER 20 MEQ TAB.ER PO STA (11:01)
--- NOTE | 2022-09-15 11:06 | P.PN ---
Subjective Progress Note Date: 09/15/22 Hospital Course: 57-year-old female with a PMH of hypertension who presents to the emergency room with complaints of shortness of breath and lower extremity edema. kendal arrival at the emergency room, the patient's SpO2 is 95% on BiPAP with respiratory rate 36, BP 191/125, and temp 98.0F. Chest x-ray in the emergency room revealed pulmonary edema. Laboratory evaluation was remarkable for troponin less than 0.02, WBC count 11.2, hemoglobin 15.7, platelets 189, sodium 141, potassium 3.5, chloride 109, CO2 20, BUN 12, creatinine 0.4, and lactic acid 2.6. Patient admitted for CHF exacerbation. Patient also went into rapid A. fib on 09/14. She was started on Cardizem drip, and now amiodarone drip. Currently on heparin drip. Subjective: Patient seen and examined at bedside. No acute events overnight. She denies any significant chest pain, palpitations, shortness of breath today. She has occasional nausea, but denies any vomiting. She denies any abdominal pain, urinary or bowel complaints. She did not require BiPAP overnight. Pertinent positives and negatives as discussed above, a complete review of systems was performed and all other systems are negative. Vitals Signs Reviewed. General: nontoxic, no distress, appears at stated age Derm: warm, dry Head: atraumatic, normocephalic, symmetric Eyes: EOMI, no lid lag, anicteric sclera Mouth: no lip lesion, mucus membranes moist Cardiovascular: S1S2 reg, no murmur Lungs: Bilateral rales at the bases , no accessory muscle use, supplemental oxygen Abdominal: soft, nontender to palpation, no guarding, no appreciable organomegaly Ext: no gross muscle atrophy, 2+ pitting edema up to midshin, no contractures Neuro: CN II-XI grossly intact, no focal neuro deficits Psych: Alert, oriented, appropriate affect Data Reviewed Today: Pertinent Labs: WBC 21.5, hemoglobin 17.4, platelet 232, potassium 3.6, BUN 20, magnesium 1.7, troponin elevated at 0.061, UA negative for nitrites and leukocyte esterase Imaging: Overnight EKG reviewed by me, shows sinus rhythm with ST-T wave changes, nonspecific Assessment and Plan: Patient is currently critically ill, requiring IV diuretics, IV antiarrhythmics, and IV antibiotic coagulation. Active: New-onset acute CHF exacerbation Elevated troponin, demand ischemia Hypertension Hypomagnesemia Hypokalemia Leukocytosis -Cardiology note reviewed: Pending echocardiogram, continue IV diuretics, IV heparin, IV amiodarone. Increased home amlodipine to 10 mg, pulmonology consult -Heparin drip dosed based on APTT, CBC ordered for tomorrow, no active bleeding -Personally discussed management with pulmonology, likely respiratory failure secondary to cardiac cause. -Continue IV Lasix 40 mg twice a day -Magnesium sulfate 2 g IV, and potassium chloride 40 mEq of oral ordered -BMP ordered for AM -Leukocytosis, likely reactive, blood cultures, procalcitonin pending, we will hold off any IV antibiotics Resolved: Lactic acidosis Chronic: Migraines Insomnia Depression/anxiety DVT ppx: Heparin drip Code status: Full code Anticipated discharge place: Pending clinical course Anticipated discharge time: Pending clinical course Objective - Vital Signs Vital signs: Vital Signs Temp 97.6 F 09/15/22 07:43 Pulse 85 09/15/22 07:43 Resp 20 09/15/22 07:43 BP 102/69 09/15/22 09:58 Pulse Ox 94 L 09/15/22 07:43 FiO2 40 09/14/22 16:30 Intake & Output 09/14/22 09/15/22 09/15/22 18:59 06:59 18:59 Intake Total 136.221 Output Total 700 1075 100 Balance -700 -1075 36.221 Weight 108.862 kg 101.5 kg Intake: Intake, IV Titration 136.221 Amount Heparin Sod,Pork in 0.45% 136.221 NaCl 25,000 unit In 0.45 % NaCl 1 250ml.bag @ 9.19 UNITS/KG/HR 10.004 mls/ hr IV .Q24H [facility] Rx#: [id number] Output: Urine 700 1075 100 Other: Voiding Method External Catheter External Catheter # Voids 2 # Bowel Movements 1 - Labs CBC & Chem 7: 09/15/22 06:36 09/15/22 09:07 Labs: Abnormal Lab Results - Last 24 Hours (Table) 09/14/22 09/14/22 09/14/22 Range/Units 18:13 21:46 21:46 WBC (3.8-10.6) k/uL RBC (3.80-5.40) m/uL Hgb (11.4-16.0) gm/dL Hct (34.0-46.0) % Neutrophils # (1.3-7.7) k/uL APTT 45.1 H (22.0-30.0) sec Sodium (137-145) mmol/L Carbon Dioxide 20 L (22-30) mmol/L BUN (7-17) mg/dL Glucose 127 H (74-99) mg/dL POC Glucose (mg/dL) (70-110) mg/dL Calcium 10.4 H (8.4-10.2) mg/dL Troponin I 0.051 H* (0.000-0.034) ng/mL Urine Protein (Negative) Urine Blood (Negative) Urine RBC (0-5) /hpf Urine Bacteria (None) /hpf Urine Mucus (None) /hpf 09/15/22 09/15/22 09/15/22 Range/Units 00:52 04:17 06:36 WBC 21.5 H (3.8-10.6) k/uL RBC 5.61 H (3.80-5.40) m/uL Hgb 17.4 H (11.4-16.0) gm/dL Hct 49.4 H (34.0-46.0) % Neutrophils # 18.0 H (1.3-7.7) k/uL APTT (22.0-30.0) sec Sodium (137-145) mmol/L Carbon Dioxide (22-30) mmol/L BUN (7-17) mg/dL Glucose (74-99) mg/dL POC Glucose (mg/dL) 140 H (70-110) mg/dL Calcium (8.4-10.2) mg/dL Troponin I 0.061 H* (0.000-0.034) ng/mL Urine Protein (Negative) Urine Blood (Negative) Urine RBC (0-5) /hpf Urine Bacteria (None) /hpf Urine Mucus (None) /hpf 09/15/22 09/15/22 09/15/22 Range/Units 06:36 08:00 09:07 WBC (3.8-10.6) k/uL RBC (3.80-5.40) m/uL Hgb (11.4-16.0) gm/dL Hct (34.0-46.0) % Neutrophils # (1.3-7.7) k/uL APTT (22.0-30.0) sec Sodium 136 L (137-145) mmol/L Carbon Dioxide (22-30) mmol/L BUN 19 H 20 H (7-17) mg/dL Glucose 137 H 122 H (74-99) mg/dL POC Glucose (mg/dL) (70-110) mg/dL Calcium (8.4-10.2) mg/dL Troponin I (0.000-0.034) ng/mL Urine Protein 1+ H (Negative) Urine Blood Moderate H (Negative) Urine RBC 31 H (0-5) /hpf Urine Bacteria Rare H (None) /hpf Urine Mucus Rare H (None) /hpf
--- NOTE | 2022-09-15 11:31 | P.CNPUL ---
History of Present Illness Consult date: 09/15/22 Reason for consult: dyspnea History of present illness: I was asked to evaluate this patient for shortness of breath. She is a chronic smoker. She also has hypertension hyperlipidemia and history of depression. The patient had an acute onset shortness of breath and for that reason she came into the hospital. Denies having any chest pain initially. Cardiac rhythm was sinus. She had some limited edema in her lower extremities bilaterally. No cough. No sputum production. No hemoptysis. No pleurisy. There was some mild troponin elevation with troponins being at 0.037, 0.03 and 0.03 respectively. Cardiac rhythm was initially sinus and there was no acute ischemic changes. The chest x-ray was consistent with acute pulmonary edema. The patient was given diuretics. The patient diuresed approximately 1.7 L. She was placed on a BiPAP at a pressure of 12/6 cm of water and currently she is on oxygen 2 L/m nasal cannula. Note that overnight, the patient went into atrial fibrillation with rapid ventricular response. She also encountered some chest pain at the time of A. fib. She is back into normal sinus rhythm. She is currently on amiodarone at 0.5 mg/m. This is part of her loading and maintenance. The patient is also on IV heparin. Denies having any chest pain for the time being. Bandage Winding Machine Operator on the case. Echocardiogram was ordered and it is also still pending for now. No previous history of abnormal heart disease. No history of any ischemic heart disease. Review of Systems CONSTITUTIONAL: Denies fever or chills. HEENT: Denies blurred vision, vision changes, or eye pain. Denies hemoptysis CARDIOVASCULAR: Denies chest pain. Denies orthopnea. Denies PND. Denies palpitations RESPIRATORY: Reports shortness of breath. GASTROINTESTINAL: Denies abdominal pain. Denies nausea or vomiting. HEMATOLOGIC: Denies bleeding disorders. GENITOURINARY: Denies any blood in urine. SKIN: Denies pruitis. Denies rash. Past Medical History Past Medical History: Hyperlipidemia, Hypertension Additional Past Medical History / Comment(s): smoker, insomnia, migraine, hypertension, chronic back pain and neck pain and she has lumbar disk disease and she had lumbar surgery x4 and spine stimulator History of Any Multi-Drug Resistant Organisms: None Reported Past Surgical History: Cholecystectomy Additional Past Surgical History / Comment(s): spinal implant in back, knee replacement, right ankle replacement, cervical surgery, right rotator cuff surg fernanda Past Anesthesia/Blood Transfusion Reactions: No Reported Reaction Past Psychological History: No Psychological Hx Reported, Anxiety, Bipolar, Depr ession Additional Psychological History / Comment(s): severe anxiety Smoking Status: Current every day smoker Past Alcohol Use History: None Reported Past Drug Use History: Marijuana - Past Family History Mother Family Medical History: Congestive Heart Failure (CHF) Medications and Allergies Home Medications Medication Instructions Recorded Confirmed Type Aspirin EC [Ecotrin Low Dose] 81 mg PO DAILY 09/14/22 09/14/22 History Atorvastatin [Lipitor] 10 mg PO HS 09/14/22 09/14/22 History Cyclobenzaprine [Flexeril] 10 mg PO TID 09/14/22 09/14/22 History Fluticasone Nasal [place] [Flonase 2 spray EA NOSTRIL BID 09/14/22 09/14/22 History Nasal [place]] Ibuprofen [Motrin] 600 mg PO Q6HR PRN 09/14/22 09/14/22 History Losartan Potassium [Cozaar] 100 mg PO DAILY 09/14/22 09/14/22 History Omeprazole [PriLOSEC] 20 mg PO BID 09/14/22 09/14/22 History Ondansetron Odt [Zofran Odt] 4 mg PO Q8H PRN 09/14/22 09/14/22 History Propranolol HCl [Propranolol HCl 80 mg PO HS 09/14/22 09/14/22 History ER] QUEtiapine [SEROquel] 500 mg PO HS 09/14/22 09/14/22 History Sertraline [Zoloft] 100 mg PO DAILY 09/14/22 09/14/22 History busPIRone HCL 15 mg PO TID 09/14/22 09/14/22 History Allergies Allergy/AdvReac Type Severity Reaction Status Date / Time No Known Allergies Allergy Verified 09/14/22 09:16 Physical Exam Vitals: Vital Signs Temp Pulse Pulse Resp BP BP Pulse Ox 09/15/22 07:43 97.6 F 85 20 161/97 94 L 09/15/22 06:35 175/94 09/15/22 04:12 183/86 09/15/22 03:48 97.5 F L 87 19 191/123 94 L 09/15/22 01:42 179/117 09/14/22 23:21 98.0 F 85 19 177/94 94 L 09/14/22 21:43 176/108 09/14/22 21:19 189/106 09/14/22 21:02 174/94 09/14/22 20:47 98.2 F 98 19 165/107 97 09/14/22 20:22 97.7 F 93 18 96 09/14/22 20:09 99 18 169/94 96 09/14/22 19:56 98 09/14/22 19:47 111 H 20 187/109 99 09/14/22 19:30 179 H 28 H 168/106 09/14/22 17:18 95 09/14/22 16:30 98.6 F 89 20 177/95 98 09/14/22 15:56 09/14/22 13:00 82 16 174/86 98 09/14/22 12:00 76 18 168/96 97 09/14/22 11:00 82 22 175/93 97 09/14/22 10:55 09/14/22 10:00 89 22 164/90 100 FiO2 09/15/22 07:43 09/15/22 06:35 09/15/22 04:12 09/15/22 03:48 09/15/22 01:42 09/14/22 23:21 09/14/22 21:43 09/14/22 21:19 09/14/22 21:02 09/14/22 20:47 09/14/22 20:22 09/14/22 20:09 09/14/22 19:56 09/14/22 19:47 09/14/22 19:30 09/14/22 17:18 09/14/22 16:30 40 09/14/22 15:56 40 09/14/22 13:00 40 09/14/22 12:00 40 09/14/22 11:00 40 09/14/22 10:55 40 09/14/22 10:00 40 Intake and Output 09/14/22 09/15/22 09/15/22 22:59 06:59 14:59 Intake Total 136.221 Output Total 725 350 Balance -725 -350 136.221 Intake: Intake, IV Titration 136.221 Amount Heparin Sod,Pork in 0.45% 136.221 NaCl 25,000 unit In 0.45 % NaCl 1 250ml.bag @ 9.19 UNITS/KG/HR 10.004 mls/ hr IV .Q24H [facility] Rx#: [id number] Output: Urine 725 350 Other: Voiding Method External Catheter External Catheter External Catheter # Bowel Movements 1 Weight 108.862 kg 101.5 kg GENERAL: Well-developed in no acute distress. HEENT: Head is normocephalic. Pupils are equal, round. Sclerae anicteric. Mucous membranes of the mouth are moist. Neck supple. No JVD or thyromegaly LUNGS: Respirations even and unlabored. Lungs diminished with rhonchi and crackles at the bases HEART: Regular rate and rhythm. S1 and S2 heard. Soft murmur noted ABDOMEN: Soft. Nondistended. Nontender. EXTREMITIES: Normal range of motion. No clubbing or cyanosis. Peripheral pulses intact. Trace bilateral lower extremity edema NEUROLOGIC: Awake and alert. Oriented x 3. Results - Laboratory Findings CBC and BMP: 09/15/22 06:36 09/15/22 09:07 PT/INR, D-dimer PT 10.2 sec (9.0-12.0) 09/15/22 06:36 INR 1.0 (<1.2) 09/15/22 06:36 D-Dimer 0.48 mg/L FEU (<0.60) 09/14/22 18:13 Abnormal lab findings: Abnormal Labs 09/14/22 09/14/22 09/14/22 04:21 04:21 04:21 WBC 11.2 H RBC Hgb Hct 46.3 H Neutrophils # 7.8 H APTT Sodium Chloride 109 H Carbon Dioxide 20 L BUN Glucose 209 H POC Glucose (mg/dL) Plasma Lactic Acid Jonathan 2.6 H* Calcium Troponin I Urine Protein Urine Blood Urine RBC Urine Bacteria Urine Mucus 09/14/22 09/14/22 09/14/22 07:22 08:33 08:33 WBC RBC Hgb Hct Neutrophils # APTT Sodium Chloride Carbon Dioxide BUN Glucose POC Glucose (mg/dL) Plasma Lactic Acid Jonathan 2.5 H* Calcium Troponin I 0.037 H* 0.038 H* Urine Protein Urine Blood Urine RBC Urine Bacteria Urine Mucus 09/14/22 09/14/22 09/14/22 18:13 21:46 21:46 WBC RBC Hgb Hct Neutrophils # APTT 45.1 H Sodium Chloride Carbon Dioxide 20 L BUN Glucose 127 H POC Glucose (mg/dL) Plasma Lactic Acid Jonathan Calcium 10.4 H Troponin I 0.051 H* Urine Protein Urine Blood Urine RBC Urine Bacteria Urine Mucus 09/15/22 09/15/22 09/15/22 00:52 04:17 06:36 WBC 21.5 H RBC 5.61 H Hgb 17.4 H Hct 49.4 H Neutrophils # 18.0 H APTT Sodium Chloride Carbon Dioxide BUN Glucose POC Glucose (mg/dL) 140 H Plasma Lactic Acid Jonathan Calcium Troponin I 0.061 H* Urine Protein Urine Blood Urine RBC Urine Bacteria Urine Mucus 09/15/22 09/15/22 06:36 08:00 WBC RBC Hgb Hct Neutrophils # APTT Sodium 136 L Chloride Carbon Dioxide BUN 19 H Glucose 137 H POC Glucose (mg/dL) Plasma Lactic Acid Jonathan Calcium Troponin I Urine Protein 1+ H Urine Blood Moderate H Urine RBC 31 H Urine Bacteria Rare H Urine Mucus Rare H - Diagnostic Findings Chest x-ray: image reviewed Assessment and Plan Plan: Acute pulmonary edema, likely cardiogenic in nature on that investigation. Rule out underlying ischemic heart disease. The patient was supported with BiPAP. The patient was offered diuretics. The patient is currently on 2 L of oxygen by nasal cannula Acute hypoxic respiratory failure secondary to above. Currently on 2 L New-onset atrial fibrillation with rapid ventricular response, converted back into normal sinus rhythm currently on amiodarone and IV heparin Chest pain Acute NSTEMI with troponin leak currently on IV heparin Smoker Hypertension Migraine Insomnia maintenance Seroquel Chronic back and neck pain with previous back surgeries and previous insertion of a spine stimulator Plan Continue IV heparin Continue IV amiodarone Awaiting results of the echocardiogram Continue diuretics Patient has been weaned down to 2 L of oxygen by nasal cannula Clinically improving We'll discuss with cardiology the possibility of a cardiac catheterization later stage Repeat chest x-ray will next 24 hours Currently free of any chest pain
[2022-09-15] MEDS: MAGNESIUM SULFATE-D5W PMX 1 GM in DEXTROSE/WATER 1 100ML.BAG IVPB SCH ×2 (11:42→12:44)
--- NOTE | 2022-09-15 17:22 | CA ---
Transthoracic Echo Report Name: Radha Dodd Age: 57 Gender: F : 1965 Exam Date: 09/14/2022 10:19 Exam Location: [place] [facility] Ht (in): Wt (lb): Ordering Physician: Alisha Linder MD Attending/Referring Phys: Cementer Machine Roro Rosenthal RDCS Procedure CPT: Indications: chf Cardiac Hx: Technical Quality: Fair Contrast 1: Total Dose (mL): Contrast 2: Total Dose (mL): MEASUREMENTS (Male / Female) Normal Values 2D ECHO LV Diastolic Diameter PLAX 4.8 cm 4.2 - 5.9 / 3.9 - 5.3 cm LV Systolic Diameter PLAX 3.1 cm IVS Diastolic Thickness 1.6 cm 0.6 - 1.0 / 0.6 - 0.9 cm LVPW Diastolic Thickness 1.6 cm 0.6 - 1.0 / 0.6 - 0.9 cm LV Relative Wall Thickness 0.7 RV Internal Dim ED PLAX 3.5 cm LVOT Diameter 2.1 cm LA Systolic Diameter LX 3.9 cm 3.0 - 4.0 / 2.7 - 3.8 cm LV Diastolic Volume MOD BP 190.5 cm??? 67 - 155 / 56 - 104 cm??? LV Systolic Volume MOD BP 88.0 cm??? 22 - 58 / 19 - 49 cm??? LV Ejection Fraction MOD BP 53.8 % >= 55 % LV Diastolic Volume MOD 4C 195.6 cm??? LV Systolic Volume MOD 4C 90.7 cm??? LV Ejection Fraction MOD 4C 53.6 % LV Diastolic Length 4C 9.8 cm LV Systolic Length 4C 7.3 cm LV Diastolic Volume MOD 2C 175.4 cm??? LV Systolic Volume MOD 2C 82.7 cm??? LV Ejection Fraction MOD 2C 52.9 % LV Diastolic Length 2C 9.3 cm LV Systolic Length 2C 7.6 cm Ascending Aorta Diameter 3.1 cm M-MODE Aortic Root Diameter MM 3.4 cm LA Systolic Diameter MM 1.8 cm LA Ao Ratio MM 0.5 MV E Point Septal Separation 4.2 cm AV Cusp Separation MM 4.3 cm DOPPLER AV Peak Velocity 196.1 cm/s AV Peak Gradient 15.4 mmHg AI Peak Velocity 545.4 cm/s AI Peak Gradient 119.0 mmHg AI Pressure Half Time 521.0 ms MV Peak Velocity 118.8 cm/s MV Peak Gradient 5.6 mmHg MV Mean Velocity 83.4 cm/s MV Mean Gradient 3.0 mmHg MV Velocity Time Integral 23.5 cm MR Peak Velocity 642.2 cm/s MR Peak Gradient 165.0 mmHg Mitral E Point Velocity 65.5 cm/s Mitral A Point Velocity 93.7 cm/s Mitral E to A Ratio 0.7 MV Deceleration Time 229.6 ms MV E' Velocity 4.5 cm/s Mitral E to MV E' Ratio 14.4 Pulmonary Vein S/D Ratio 2.1 Pulmonary Vein A to Mitral A Rat 0.3 PV Peak Velocity 82.7 cm/s PV Peak Gradient 2.7 mmHg FINDINGS Left Ventricle Left ventricular ejection fraction is estimated at 55-60 %. Mild concentric left ventricular hypertrophy. Grade 1 diastolic dysfunction. Normal basal systolic function. Right Ventricle Normal right ventricular size and function. Right Atrium Normal right atrial size. Left Atrium Left atrial size at the upper limits of normal. Mitral Valve Mitral valve thickened. Moderate mitral regurgitation. Mitral annular calcification. Aortic Valve Trileaflet aortic valve. Diffuse thickening (sclerosis) of the aortic valve cusps without reduced excursion. [id number] aortic regurgitation. Tricuspid Valve Mild tricuspid regurgitation. Pulmonic Valve Structurally normal pulmonic valve. Pericardium Normal pericardium. Small pericardial effusion. Aorta Normal size aortic root and proximal ascending aorta. CONCLUSIONS Normal LV systolic function Moderate MR and moderate AI Previewed by: Dr. Bahman Mari MD (Electronically Signed) Final Date: 15 September 2022 17:21
[2022-09-15] MEDS: HEPARIN SOD,PORK IN 0.45% NACL 25,000 UNIT in 0.45% NACL 1 250ML.BAG IV SCH (17:43)
[2022-09-15] MEDS: AMIODARONE 200 MG TAB PO SCH (20:26)
[2022-09-15] MEDS: ATORVASTATIN 40 MG TAB PO SCH (20:27)
[2022-09-15] MEDS: PROPRANOLOL LA 80 MG CAP.SA.24H PO SCH (20:27)
[2022-09-15] MEDS: QUEtiapine 100 MG TAB PO SCH (20:27)
[2022-09-16 06:36] LABS: Basophils # (A) 0.1 k/uL (0-0.2); Basophils % (A) 1 %; Eosinophils # (A) 0.2 k/uL (0-0.7); Eosinophils % (A) 1 %; HCT 46.2 % (34.0-46.0); HGB 16.1 gm/dL (11.4-16.0); Lymphocytes # (A) 2.8 k/uL (1.0-4.8); Lymphocytes % (A) 25 %; MCH 30.2 pg (25.0-35.0); MCHC 34.8 g/dL (31.0-37.0); MCV 86.7 fL (80.0-100.0); Mean Platelet Volume 8.7; Monocytes # (A) 0.5 k/uL (0-1.0); Monocytes % (A) 5 %; Neutrophils # (A) 7.7 k/uL (1.3-7.7); Neutrophils % (A) 68 %; Platelet Count 182 k/uL (150-450); RBC 5.33 m/uL (3.80-5.40); WBC 11.3 k/uL (3.8-10.6)
[2022-09-16] MEDS: PANTOPRAZOLE 40 MG TABLET PO SCH (06:42)
[2022-09-16] MEDS: FUROSEMIDE 10 MG/ML 4 ML VIAL IV SCH (06:43)
[2022-09-16 06:57] LABS: Calcium 9.5 mg/dL (8.4-10.2); Magnesium 2.3 mg/dL (1.6-2.3); Potassium 3.7 mmol/L (3.5-5.1)
[2022-09-16] MEDS: AMIODARONE 200 MG TAB PO SCH ×2 (09:50→19:51)
[2022-09-16] MEDS: CYCLOBENZAPRINE 10 MG TAB PO SCH ×3 (09:50→19:50)
[2022-09-16] MEDS: APIXABAN 5 MG TAB PO SCH ×2 (09:50→19:51)
[2022-09-16] MEDS: LOSARTAN 50 MG TAB PO SCH (09:50)
[2022-09-16] MEDS: SERTRALINE 100 MG TAB PO SCH (09:50)
[2022-09-16] MEDS: amLODIPine 10 MG TAB PO SCH (09:51)
[2022-09-16] MEDS: busPIRone HCl 5 MG TAB PO SCH ×3 (09:51→19:51)
[2022-09-16] MEDS: ASPIRIN 81 MG PO SCH (09:51)
[2022-09-16] MEDS: FLUTICASONE 50MCG/SPRAY NASAL 16GM EA NOSTRIL SCH ×2 (09:51→19:51)
--- NOTE | 2022-09-16 10:13 | P.PN ---
Subjective Progress Note Date: 09/16/22 HISTORY OF PRESENT ILLNESS: This is a 57-year-old with a past medical history significant for hypertension, hyperlipidemia, and depression. Patient does not follow with a director environmental. We have been asked to see the patient in consultation for congestive heart failure. Patient presented to the hospital with a chief complaint of shortness of breath and worsening lower extremity edema. Patient examined at the bedside in the emergency room. The patient states she started having shortness of breath yesterday. She also reports having some increased lower extremity edema. She reports having gained 20 pounds in the last month. She does report eating a diet high in salt. She reports that she is a current smoker and smokes half a pack per day. The patient is currently on a BiPAP. She states her shortness of breath has improved since coming to the hospital. She was started on IV Lasix 40 mg every 12 hours. Patient's blood pressure elevated at the time of examination with a recent reading of 167/100. * EKG reveals sinus mechanism with no signs of acute ischemia * Chest xray moderate pulmonary edema that could be congestive heart failure. * Laboratory data: WBC 11.2. Hemoglobin 15.7. Platelet count 189. Sodium 141. Potassium 3.5. BUN 12. Creatinine 0.84. ProBNP 920. Troponin 0.012. 0.037. 0.038. 0.033. * Current home cardiac medications include losartan 100 mg daily, Lipitor 10 mg at night, aspirin 81 mg daily, propanolol 80 mg at night 09/15/2022 Patient examined this morning at the bedside. Patient has been taken off Bipap and is currently tolerating nasal cannula. She reports improvement in her shortness of breath. She remains on IV lasix. Patient went into afib with RVR overnight. She was started on IV amio. She is maintaining sinus mechanism this morning. Patient reports having chest discomfort last night when she was in afib with RVR. She was started on IV nitro. She denies having any further episodes of chest pain or pressure. 09/16/2022 Patient examined this morning at the bedside. Patient denies chest pain or pr essure. Denies SOB. She has been up ambulating to the bathroom without difficulty. Telemetry reveals sinus mechanism. She remains on IV lasix and IV heparin. PHYSICAL EXAM: VITAL SIGNS: Reviewed. GENERAL: Well-developed in no acute distress. HEENT: Head is normocephalic. Pupils are equal, round. Sclerae anicteric. Mucous membranes of the mouth are moist. Neck supple. No JVD or thyromegaly LUNGS: Respirations even and unlabored. Lungs diminished. Right left sided expiratory wheezing. HEART: Regular rate and rhythm. S1 and S2 heard. Soft murmur noted ABDOMEN: Soft. Nondistended. Nontender. EXTREMITIES: Normal range of motion. No clubbing or cyanosis. Peripheral puls es intact. Trace bilateral lower extremity edema NEUROLOGIC: Awake and alert. Oriented x 3. ASSESSMENT: Acute congestive heart failure with preserved systolic function Acute hypoxic respiratory failure, on BiPAP, suspect some pulmonary component along with CHF New onset paroxysmal atrial fibrillation with RVR, currently maintaining sinus mechanism Leukocytosis Mildly elevated troponins, flat, likely secondary to above, acute coronary syndrome ruled out Hypertension Hyperlipidemia Depression Nicotine dependence, patient smokes 1/2 pack per day. PLAN: Discontinue IV heparin. Begin Eliquis 5mg BID Discontinue IV Lasix. Begin oral lasix 40mg daily Continue additional cardiac medications Possible discharge home tomorrow Further recommendations pending patient's course Nurse practitioner note has been reviewed by physician. Signing provider agrees with the documented findings, assessment, and plan of care. Objective - Vital Signs Vital signs: Vital Signs Temp 98 F 09/16/22 04:00 Pulse 58 L 09/16/22 04:00 Resp 16 09/16/22 04:00 BP 111/73 09/16/22 04:00 Pulse Ox 94 L 09/16/22 04:00 FiO2 40 09/16/22 09:39 Intake & Output 09/15/22 09/16/22 09/16/22 18:59 06:59 18:59 Intake Total 740.000 118 Output Total 400 400 Balance 340.000 -400 118 Weight 97.5 kg Intake: Intake, IV Titration 500.000 Amount Amiodarone 450 mg In 250 Dextrose 5% in Water 250 ml @ 0.5 MG/MIN 16.667 mls/hr IV .Q15H [facility] Rx#: [id number] Heparin Sod,Pork in 0.45% 250.000 NaCl 25,000 unit In 0.45 % NaCl 1 250ml.bag @ 9.19 UNITS/KG/HR 10.004 mls/ hr IV .Q24H [facility] Rx#: [id number] Oral 240 118 Output: Urine 400 400 Other: Voiding Method External Catheter External Catheter # Voids 1 0 # Bowel Movements 1 - Labs CBC & Chem 7: 09/16/22 06:19 09/16/22 06:19 Labs: Abnormal Lab Results - Last 24 Hours (Table) 09/15/22 09/15/22 09/16/22 Range/Units 09:07 15:02 06:19 WBC 11.3 H (3.8-10.6) k/uL Hgb 16.1 H (11.4-16.0) gm/dL Hct 46.2 H (34.0-46.0) % APTT 53.5 H (22.0-30.0) sec BUN 20 H (7-17) mg/dL Creatinine (0.52-1.04) mg/dL Glucose 122 H (74-99) mg/dL 09/16/22 09/16/22 Range/Units 06:19 06:19 WBC (3.8-10.6) k/uL Hgb (11.4-16.0) gm/dL Hct (34.0-46.0) % APTT 51.4 H (22.0-30.0) sec BUN 35 H (7-17) mg/dL Creatinine 1.19 H (0.52-1.04) mg/dL Glucose 103 H (74-99) mg/dL
--- NOTE | 2022-09-16 11:05 | P.PN ---
Subjective Progress Note Date: 09/16/22 On today's evaluation of 09/16/2022, the patient is back into normal sinus rhythm. She is feeling of any chest pain. No significant shortness of breath. She is on anticoagulation with Eliquis 5 mg by mouth twice a day. She is also on amiodarone 400 mg by mouth twice a day. I discussed the case with the payable manager and the patient will need a cardiac catheterization at the later stage. She's remains on Inderal 80 mg at bedtime. Blood work shows a WBC count of 11.3 with a hemoglobin of 16. The enzymes at 35 and a creatinine of 1.1. She is currently off IV heparin.Echo was done and the patient has a normal LV function with an ejection fraction of 55%. There is grade 1 diastolic dysfunction. LVH. Mild concentric hypertrophy. No valvular abnormalities other than some mild to moderate aortic regurgitation. Objective - Vital Signs Vital signs: Vital Signs Temp 98 F 09/16/22 04:00 Pulse 58 L 09/16/22 04:00 Resp 16 09/16/22 04:00 BP 111/73 09/16/22 04:00 Pulse Ox 94 L 09/16/22 04:00 FiO2 40 09/16/22 09:39 Intake & Output 09/15/22 09/16/22 09/16/22 18:59 06:59 18:59 Intake Total 740.000 118 Output Total 400 400 Balance 340.000 -400 118 Weight 97.5 kg Intake: Intake, IV Titration 500.000 Amount Amiodarone 450 mg In 250 Dextrose 5% in Water 250 ml @ 0.5 MG/MIN 16.667 mls/hr IV .Q15H [facility] Rx#: [id number] Heparin Sod,Pork in 0.45% 250.000 NaCl 25,000 unit In 0.45 % NaCl 1 250ml.bag @ 9.19 UNITS/KG/HR 10.004 mls/ hr IV .Q24H [facility] Rx#: [id number] Oral 240 118 Output: Urine 400 400 Other: Voiding Method External Catheter External Catheter # Voids 1 0 # Bowel Movements 1 - Exam GENERAL: Well-developed in no acute distress. HEENT: Head is normocephalic. Pupils are equal, round. Sclerae anicteric. Mucous membranes of the mouth are moist. Neck supple. No JVD or thyromegaly LUNGS: Respirations even and unlabored. Lungs diminished with rhonchi and crackles at the bases HEART: Regular rate and rhythm. S1 and S2 heard. Soft murmur noted ABDOMEN: Soft. Nondistended. Nontender. EXTREMITIES: Normal range of motion. No clubbing or cyanosis. Peripheral pulses intact. Trace bilateral lower extremity edema NEUROLOGIC: Awake and alert. Oriented x 3. - Labs CBC & Chem 7: 09/16/22 06:19 09/16/22 06:19 Labs: Abnormal Lab Results - Last 24 Hours (Table) 09/15/22 09/16/22 09/16/22 Range/Units 15:02 06:19 06:19 WBC 11.3 H (3.8-10.6) k/uL Hgb 16.1 H (11.4-16.0) gm/dL Hct 46.2 H (34.0-46.0) % APTT 53.5 H (22.0-30.0) sec BUN 35 H (7-17) mg/dL Creatinine 1.19 H (0.52-1.04) mg/dL Glucose 103 H (74-99) mg/dL 09/16/22 Range/Units 06:19 WBC (3.8-10.6) k/uL Hgb (11.4-16.0) gm/dL Hct (34.0-46.0) % APTT 51.4 H (22.0-30.0) sec BUN (7-17) mg/dL Creatinine (0.52-1.04) mg/dL Glucose (74-99) mg/dL Assessment and Plan Plan: Acute pulmonary edema, likely cardiogenic in nature on that investigation. Rule out underlying ischemic heart disease. The patient was supported with BiPAP. T he patient was offered diuretics. The patient is currently on 2 L of oxygen by nasal cannula, clinically recovered and the patient's sister status is back to her baseline Acute hypoxic respiratory failure secondary to above. Currently on 2 L New-onset atrial fibrillation with rapid ventricular response, converted back into normal sinus rhythm currently on amiodarone and the patient is currently on Eliquis, amiodarone and in the Route Chest pain Acute NSTEMI with troponin leak currently free of any chest pain Smoker Hypertension Migraine Insomnia maintenance Seroquel Chronic back and neck pain with previous back surgeries and previous insertion of a spine stimulator Mild to moderate aortic regurgitation, preserved LV function Plan Continue same treatment Repeat chest x-ray Wean off FiO2 Continue diuretics Patient has been weaned down to 2 L of oxygen by nasal cannula Clinically improving We'll discuss with cardiology the possibility of a cardiac catheterization later stage, This may be done also had an outpatient basis Repeat chest x-ray will next 24 hours Currently free of any chest pain
--- NOTE | 2022-09-16 11:08 | P.PN ---
Subjective Progress Note Date: 09/16/22 Hospital Course: 57-year-old female with a PMH of hypertension who presents to the emergency room with complaints of shortness of breath and lower extremity edema. kendal arrival at the emergency room, the patient's SpO2 is 95% on BiPAP with respiratory rate 36, BP 191/125, and temp 98.0F. Chest x-ray in the emergency room revealed pulmonary edema. Laboratory evaluation was remarkable for troponin less than 0.02, WBC count 11.2, hemoglobin 15.7, platelets 189, sodium 141, potassium 3.5, chloride 109, CO2 20, BUN 12, creatinine 0.4, and lactic acid 2.6. Patient admitted for CHF exacerbation. Patient also went into rapid A. fib on 09/14. She was started on Cardizem drip, and then amiodarone drip. Amiodarone converted to oral, heparin drip converted to Eliquis. Subjective: Patient seen and examined at bedside. No acute events overnight. She denies any significant chest pain, palpitations, shortness of breath today. She claims that her symptoms have improved remarkably compared to admission. Pertinent positives and negatives as discussed above, a complete review of systems was performed and all other systems are negative. Vitals Signs Reviewed. General: nontoxic, no distress, appears at stated age Derm: warm, dry Head: atraumatic, normocephalic, symmetric Eyes: EOMI, no lid lag, anicteric sclera Mouth: no lip lesion, mucus membranes moist Cardiovascular: S1S2 reg, no murmur Lungs: Minimal Bilateral rales at the bases , no accessory muscle use, supplemental oxygen Abdominal: soft, nontender to palpation, no guarding, no appreciable organomegaly Ext: no gross muscle atrophy, 2+ pitting edema up to ankles, no contractures Neuro: CN II-XI grossly intact, no focal neuro deficits Psych: Alert, oriented, appropriate affect Data Reviewed Today: Pertinent Labs: WBC 11.3, hemoglobin 16.1, platelet 182, potassium 3.7, BUN 35, creatinine 1.19 magnesium 2.3 Imaging: EKG reviewed by me, shows sinus rhythm with ST-T wave changes, nonspecific Echocardiogram report reviewed: Normal LV systolic function, moderate MR, moderate AI Assessment and Plan: Active: New-onset acute CHF exacerbation Acute hypoxic respiratory failure New-onset atrial fibrillation with RVR, now in sinus rhythm Elevated troponin, demand ischemia Hypertension -Cardiology note reviewed: Patient started on Eliquis, and oral Lasix, likely discharge tomorrow -Creatinine slowly trending up, likely in the setting of diuretics, being switched from IV Lasix to oral Lasix -Patient is also off of amiodarone drip, currently on amiodarone 400 mg twice a day oral -Currently on 2 L nasal cannula, continue to wean -BMP ordered for AM -No active bleeding, hemoglobin stable -Blood pressure better controlled on current regimen, no further changes Resolved: Leukocytosis, reactive Lactic acidosis Hypomagnesemia Hypokalemia Chronic: Migraines Insomnia Depression/anxiety DVT ppx: Eliquis Code status: Full code Anticipated discharge place: Home Anticipated discharge time: Likely tomorrow Objective - Vital Signs Vital signs: Vital Signs Temp 98 F 09/16/22 04:00 Pulse 58 L 09/16/22 04:00 Resp 16 09/16/22 04:00 BP 111/73 09/16/22 04:00 Pulse Ox 94 L 09/16/22 04:00 FiO2 40 09/16/22 09:39 Intake & Output 09/15/22 09/16/22 09/16/22 18:59 06:59 18:59 Intake Total 740.000 118 Output Total 400 400 Balance 340.000 -400 118 Weight 97.5 kg Intake: Intake, IV Titration 500.000 Amount Amiodarone 450 mg In 250 Dextrose 5% in Water 250 ml @ 0.5 MG/MIN 16.667 mls/hr IV .Q15H ZONIA Rx#: [id number] Heparin Sod,Pork in 0.45% 250.000 NaCl 25,000 unit In 0.45 % NaCl 1 250ml.bag @ 9.19 UNITS/KG/HR 10.004 mls/ hr IV .Q24H ZONIA Rx#: [id number] Oral 240 118 Output: Urine 400 400 Other: Voiding Method External Catheter External Catheter # Voids 1 0 # Bowel Movements 1 - Labs CBC & Chem 7: 09/16/22 06:19 09/16/22 06:19 Labs: Abnormal Lab Results - Last 24 Hours (Table) 09/15/22 09/16/22 09/16/22 Range/Units 15:02 06:19 06:19 WBC 11.3 H (3.8-10.6) k/uL Hgb 16.1 H (11.4-16.0) gm/dL Hct 46.2 H (34.0-46.0) % APTT 53.5 H (22.0-30.0) sec BUN 35 H (7-17) mg/dL Creatinine 1.19 H (0.52-1.04) mg/dL Glucose 103 H (74-99) mg/dL 09/16/22 Range/Units 06:19 WBC (3.8-10.6) k/uL Hgb (11.4-16.0) gm/dL Hct (34.0-46.0) % APTT 51.4 H (22.0-30.0) sec BUN (7-17) mg/dL Creatinine (0.52-1.04) mg/dL Glucose (74-99) mg/dL
--- NOTE | 2022-09-16 13:41 | XR ---
EXAMINATION TYPE: XR chest 1V DATE OF EXAM: 09/16/2022 COMPARISON: September 14, 2022. HISTORY: Follow-up for pulmonary edema. TECHNIQUE: Single frontal view of the chest is obtained. FINDINGS: There is a band of atelectasis in the left lower lobe. There is otherwise no focal air spa ce opacity, pleural effusion, or pneumothorax seen. The cardiac silhouette size is within normal vargas its. The osseous structures are intact. Cervical spine fusion is again seen. IMPRESSION: Acute process with resolution of pulmonary edema.
[2022-09-16] MEDS: MORPHINE SULFATE 2 MG/ML SYRINGE IVP PRN (16:11)
[2022-09-16] MEDS: ATORVASTATIN 40 MG TAB PO SCH (19:51)
[2022-09-16] MEDS: QUEtiapine 100 MG TAB PO SCH (19:52)
[2022-09-16] MEDS: PROPRANOLOL LA 80 MG CAP.SA.24H PO SCH (19:52)
[2022-09-17] MEDS: PANTOPRAZOLE 40 MG TABLET PO SCH (06:31)
[2022-09-17 08:03] LABS: Calcium 9.7 mg/dL (8.4-10.2)
[2022-09-17 08:06] LABS: Potassium 3.8 mmol/L (3.5-5.1)
[2022-09-17] MEDS: ASPIRIN 81 MG PO SCH (08:19)
[2022-09-17] MEDS: busPIRone HCl 5 MG TAB PO SCH ×3 (08:19→20:41)
[2022-09-17] MEDS: APIXABAN 5 MG TAB PO SCH ×2 (08:20→20:40)
[2022-09-17] MEDS: AMIODARONE 200 MG TAB PO SCH ×2 (08:20→20:40)
[2022-09-17] MEDS: SERTRALINE 100 MG TAB PO SCH (08:20)
[2022-09-17] MEDS: CYCLOBENZAPRINE 10 MG TAB PO SCH ×3 (08:20→20:40)
[2022-09-17] MEDS: MORPHINE SULFATE 2 MG/ML SYRINGE IVP PRN ×3 (08:20→20:49)
[2022-09-17] MEDS: FLUTICASONE 50MCG/SPRAY NASAL 16GM EA NOSTRIL SCH ×2 (08:28→20:46)
[2022-09-17] MEDS: LOSARTAN 50 MG TAB PO SCH (08:31)
[2022-09-17] MEDS: amLODIPine 10 MG TAB PO SCH (08:31)
[2022-09-17] MEDS ORDERED: FUROSEMIDE 40 MG TAB PO SCH (09:00)
--- NOTE | 2022-09-17 09:25 | P.PN ---
Subjective Progress Note Date: 09/17/22 On today's evaluation of 09/16/2022, the patient is back into normal sinus rhythm. She is feeling of any chest pain. No significant shortness of breath. She is on anticoagulation with Eliquis 5 mg by mouth twice a day. She is also on amiodarone 400 mg by mouth twice a day. I discussed the case with the director of operations and the patient will need a cardiac catheterization at the later stage. She's remains on Inderal 80 mg at bedtime. Blood work shows a WBC count of 11.3 with a hemoglobin of 16. The enzymes at 35 and a creatinine of 1.1. She is currently off IV heparin.Echo was done and the patient has a normal LV function with an ejection fraction of 55%. There is grade 1 diastolic dysfunction. LVH. Mild concentric hypertrophy. No valvular abnormalities other than some mild to moderate aortic regurgitation. On today's evaluation of 09/17/2022, the patient is doing extremely well. She is on room air oxygen. The chest x-ray shows resolution of the previously described acute pulmonary edema. She is free of any chest pain. She is currently on oral Lasix. Her echocardiogram showed normal LV with a grade 1 diastolic heart failure. She remains on anticoagulation with Eliquis 5 mg by mouth twice a day. Her cardiac rhythm is currently sinus. Lower extremity edema still present although it's improved. Objective - Vital Signs Vital signs: Vital Signs Temp 98.6 F 09/17/22 08:15 Pulse 78 09/17/22 08:15 Resp 18 09/17/22 08:15 BP 111/56 09/17/22 08:15 Pulse Ox 96 09/17/22 08:15 FiO2 21 09/16/22 23:34 Intake & Output 09/16/22 09/17/22 09/17/22 18:59 06:59 18:59 Intake Total 538 128 Balance 538 128 Weight 96.7 kg Intake: IV 10 Invasive Line 1 5 Invasive Line 2 5 Oral 538 118 Other: Voiding Method External Catheter External Catheter External Catheter # Voids 1 - Exam GENERAL: Well-developed in no acute distress. HEENT: Head is normocephalic. Pupils are equal, round. Sclerae anicteric. Mucous membranes of the mouth are moist. Neck supple. No JVD or thyromegaly LUNGS: Respirations even and unlabored. Lungs diminished with rhonchi and crackles at the bases HEART: Regular rate and rhythm. S1 and S2 heard. Soft murmur noted ABDOMEN: Soft. Nondistended. Nontender. EXTREMITIES: Normal range of motion. No clubbing or cyanosis. Peripheral pulses intact. Trace bilateral lower extremity edema NEUROLOGIC: Awake and alert. Oriented x 3. - Labs CBC & Chem 7: 09/16/22 06:19 09/17/22 06:26 Labs: Abnormal Lab Results - Last 24 Hours (Table) 09/17/22 Range/Units 06:26 BUN 49 H (7-17) mg/dL Creatinine 1.53 H (0.52-1.04) mg/dL Microbiology - Last 24 Hours (Table) 09/15/22 09:11 Blood Culture - Preliminary Blood No Growth after 24 hours 09/15/22 09:07 Blood Culture - Preliminary Blood No Growth after 24 hours Assessment and Plan Plan: Acute pulmonary edema, likely cardiogenic in nature on that investigation. Rule out underlying ischemic heart disease. The patient was supported with BiPAP. The patient was offered diuretics. The patient is currently on room air oxygen and the x-ray is completely cleared and there is resolution of the previous described pulmonary edema Acute hypoxic respiratory failure secondary to above. Currently on 2 L New-onset atrial fibrillation with rapid ventricular response, converted back into normal sinus rhythm currently on amiodarone and the patient is currently on Eliquis, amiodarone and in the Route Chest pain Acute NSTEMI with troponin leak currently free of any chest pain Smoker Hypertension Migraine Insomnia maintenance Seroquel Chronic back and neck pain with previous back surgeries and previous insertion of a spine stimulator Mild to moderate aortic regurgitation, preserved LV function Plan Continue same treatment Room air oxygen and the patient's pulmonary edema has recovered Continue diuretics Cardiac rhythm is sinus Clinically improving We'll discuss with cardiology the possibility of a cardiac catheterization later stage, This may be done also had an outpatient basis Repeat chest x-ray will next 24 hours Currently free of any chest pain
[2022-09-17 11:08] VITALS: RESP 16
--- NOTE | 2022-09-17 11:34 | P.PN ---
Subjective Progress Note Date: 09/17/22 Patient says that she feels good. She denies any shortness of breath. She has no acute complaints. Objective - Vital Signs Vital signs: Vital Signs Temp 98.6 F 09/17/22 08:15 Pulse 68 09/17/22 11:07 Resp 16 09/17/22 11:07 BP 107/53 09/17/22 11:07 Pulse Ox 96 09/17/22 11:07 FiO2 21 09/16/22 23:34 Intake & Output 09/16/22 09/17/22 09/17/22 18:59 06:59 18:59 Intake Total 538 128 Output Total 400 Balance 538 -272 Weight 96.7 kg Intake: IV 10 Invasive Line 1 5 Invasive Line 2 5 Oral 538 118 Output: Urine 400 Other: Voiding Method External Catheter External Catheter External Catheter # Voids 1 2 - Exam General examination - Alert and Oriented 3 in NAD Heart - + S1S2 no murmurs Lungs - Clear to auscultation Abdomen soft NT ND +ve BS Extremities - No edema [employer]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 kendal arrival at the emergency room, the patient's SpO2 is 95% on BiPAP with respiratory rate 36, BP 191/125, and temp 98.0F. Chest x-ray in the emergency room revealed pul monary edema. Laboratory evaluation was remarkable for troponin less than 0.02, WBC count 11.2, hemoglobin 15.7, platelets 189, sodium 141, potassium 3.5, chloride 109, CO2 20, BUN 12, creatinine 0.4, and lactic acid 2.6. Patient admitted for CHF exacerbation. Patient also went into rapid A. fib on 09/14. She was started on Cardizem drip, and then amiodarone drip. Amiodarone converted to oral, heparin drip converted to Eliquis. Assessment and plan Active: Acute kidney injury likely due to diuretics New-onset acute CHF exacerbation Acute hypoxic respiratory failure New-onset atrial fibrillation with RVR, now in sinus rhythm Elevated troponin, demand ischemia Hypertension -Patient started on Eliquis, and oral Lasix, likely discharge tomorrow if creatinine is stable -Creatinine worsened from 1.1 to 1.5. Patient was just switched to oral Lasix yesterday. We'll continue same dose of Lasix. -Patient is also off of amiodarone drip, currently on amiodarone 400 mg twice a day oral -Patient currently on room air and satting well -I reviewed chest x-ray done on 09/16/2022 that shows acute process with resolution of pulmonary edema -BMP ordered for AM -No active bleeding, hemoglobin stable Resolved: Leukocytosis, reactive Lactic acidosis Hypomagnesemia Hypokalemia Chronic: Migraines Insomnia Depression/anxiety Anticipated discharge the next 24 hours if creatinine stable
--- NOTE | 2022-09-17 12:25 | P.PN ---
Subjective Progress Note Date: 09/17/22 PROGRESS NOTE The patient is a 57 old female who presented with dyspnea, peripheral edema and evidence of CHF with preserved systolic function. She has a history of hypertension, hyperlipidemia. She had paroxysmal atrial fibrillation but she is back in sinus mechanism. She's feeling better today. She denies any chest discomfort, dizziness or palpitations. Hemodynamically she is stable. Medications: Amiodarone 400 mg twice a day, furosemide 40 mg daily, Cozaar 100 mg daily, propranolol 80 mg daily, Zoloft, Lipitor 40 mg daily, Eliquis 5 mg twice a day PHYSICAL EXAMINATION: Blood pressure 107/50 heart rate 60 LUNGS: Clear to auscultation HEART: Regular rate and rhythm, S1, S2. No S3. systolic ejection murmur ABDOMEN: Soft, nontender, no organomegaly EXTREMETIES: No edema LAB: BUN 49, creatinine 1.53 IMPRESSION: 1. Paroxysmal atrial fibrillation, back in sinus mechanism 2. Probable CHF with preserved systolic function, stable 3. Worsening renal function, probably secondary to diuresis 4. History of hypertension PLAN: 1. Decrease Lasix 2. Decrease losartan 3. Follow renal functions 4. If stable probable DC home tomorrow and follow-up as an outpatient Objective - Vital Signs Vital signs: Vital Signs Temp 98.6 F 09/17/22 08:15 Pulse 68 09/17/22 11:07 Resp 16 09/17/22 11:07 BP 107/53 09/17/22 11:07 Pulse Ox 96 09/17/22 11:07 FiO2 21 09/16/22 23:34 Intake & Output 09/16/22 09/17/22 09/17/22 18:59 06:59 18:59 Intake Total 538 128 Output Total 400 Balance 538 -272 Weight 96.7 kg Intake: IV 10 Invasive Line 1 5 Invasive Line 2 5 Oral 538 118 Output: Urine 400 Other: Voiding Method External Catheter External Catheter External Catheter # Voids 1 2 - Labs CBC & Chem 7: 09/16/22 06:19 09/17/22 06:26 Labs: Abnormal Lab Results - Last 24 Hours (Table) 09/17/22 Range/Units 06:26 BUN 49 H (7-17) mg/dL Creatinine 1.53 H (0.52-1.04) mg/dL Microbiology - Last 24 Hours (Table) 09/15/22 09:07 Blood Culture - Preliminary Blood No Growth after 48 hours 09/15/22 09:11 Blood Culture - Preliminary Blood No Growth after 48 hours
[2022-09-17] MEDS: QUEtiapine 100 MG TAB PO SCH (20:40)
[2022-09-17] MEDS: PROPRANOLOL LA 80 MG CAP.SA.24H PO SCH (20:40)
[2022-09-17] MEDS: ATORVASTATIN 40 MG TAB PO SCH (20:41)
[2022-09-17 23:25] VITALS: TEMP 97.8
[2022-09-18 04:32] VITALS: PULSE 71
[2022-09-18] MEDS: PANTOPRAZOLE 40 MG TABLET PO SCH (06:34)
[2022-09-18 07:37] VITALS: BP 117/76
[2022-09-18] MEDS: SERTRALINE 100 MG TAB PO SCH (07:39)
[2022-09-18] MEDS: busPIRone HCl 5 MG TAB PO SCH ×2 (07:39→10:51)
[2022-09-18] MEDS: AMIODARONE 200 MG TAB PO SCH (07:39)
[2022-09-18] MEDS: CYCLOBENZAPRINE 10 MG TAB PO SCH ×2 (07:39→10:51)
[2022-09-18] MEDS: ASPIRIN 81 MG PO SCH (07:39)
[2022-09-18] MEDS: APIXABAN 5 MG TAB PO SCH (07:39)
[2022-09-18] MEDS: MORPHINE SULFATE 2 MG/ML SYRINGE IVP PRN (07:40)
[2022-09-18] MEDS: FLUTICASONE 50MCG/SPRAY NASAL 16GM EA NOSTRIL SCH (07:45)
[2022-09-18 08:23] LABS: Potassium 3.8 mmol/L (3.5-5.1)
[2022-09-18] MEDS ORDERED: LOSARTAN 50 MG TAB PO SCH (09:00)
[2022-09-18] MEDS ORDERED: FUROSEMIDE 20 MG TAB PO SCH (09:00)
--- NOTE | 2022-09-18 10:10 | P.PN ---
Subjective Progress Note Date: 09/18/22 On today's evaluation of 09/16/2022, the patient is back into normal sinus rhythm. She is feeling of any chest pain. No significant shortness of breath. She is on anticoagulation with Eliquis 5 mg by mouth twice a day. She is also on amiodarone 400 mg by mouth twice a day. I discussed the case with the specimen transporter and the patient will need a cardiac catheterization at the later stage. She's remains on Inderal 80 mg at bedtime. Blood work shows a WBC count of 11.3 with a hemoglobin of 16. The enzymes at 35 and a creatinine of 1.1. She is currently off IV heparin.Echo was done and the patient has a normal LV function with an ejection fraction of 55%. There is grade 1 diastolic dysfunction. LVH. Mild concentric hypertrophy. No valvular abnormalities other than some mild to moderate aortic regurgitation. On today's evaluation of 09/17/2022, the patient is doing extremely well. She is on room air oxygen. The chest x-ray shows resolution of the previously described acute pulmonary edema. She is free of any chest pain. She is currently on oral Lasix. Her echocardiogram showed normal LV with a grade 1 diastolic heart failure. She remains on anticoagulation with Eliquis 5 mg by mouth twice a day. Her cardiac rhythm is currently sinus. Lower extremity edema still present although it's improved. On today's evaluation of the 2022, no new complaints and the patient is on room air. No chest pain. Cardiac rhythm is sinus. Creatinine is down to 1.27 and a BUN is at 50 and the patient is recovering from her acute kidney injury. Sodium is at 137. She denies having a specific complaints. Chest x-ray was also improvement of pulmonary edema discussed earlier. She remains on anticoagulation with Eliquis 5 mg by mouth twice a day. No nausea. No vomiting. No chest pain. Echocardiogram shows a preserved LV function with some grade 1 diastolic failure. Objective - Vital Signs Vital signs: Vital Signs Temp 97.8 F 09/18/22 07:35 Pulse 71 09/18/22 07:35 Resp 16 09/18/22 07:35 BP 117/76 09/18/22 07:35 Pulse Ox 96 09/18/22 07:35 FiO2 21 09/16/22 23:34 Intake & Output 09/17/22 09/18/2209/18/23 17:59 06:59 18:59 Intake Total 128 Output Total Balance 128 Weight Intake: IV 10 Invasive Line 1 5 Invasive Line 2 5 Oral 118 Output: Urine Other: Voiding Method External Catheter # Voids - Exam GENERAL: Well-developed in no acute distress. HEENT: Head is normocephalic. Pupils are equal, round. Sclerae anicteric. Mucous membranes of the mouth are moist. Neck supple. No JVD or thyromegaly LUNGS: Respirations even and unlabored. Lungs diminished with rhonchi and crackles at the bases HEART: Regular rate and rhythm. S1 and S2 heard. Soft murmur noted ABDOMEN: Soft. Nondistended. Nontender. EXTREMITIES: Normal range of motion. No clubbing or cyanosis. Peripheral pulses intact. Trace bilateral lower extremity edema NEUROLOGIC: Awake and alert. Oriented x 3. - Labs CBC & Chem 7: 09/16/22 06:19 09/18/22 06:52 Labs: Abnormal Lab Results - Last 24 Hours (Table) 09/18/22 Range/Units 06:52 BUN 50 H (7-17) mg/dL Creatinine 1.27 H (0.52-1.04) mg/dL Glucose 107 H (74-99) mg/dL Microbiology - Last 24 Hours (Table) 09/15/22 09:07 Blood Culture - Preliminary Blood No Growth after 48 hours 09/15/22 09:11 Blood Culture - Preliminary Blood No Growth after 48 hours Assessment and Plan Plan: Acute pulmonary edema, likely cardiogenic in nature on that investigation. Rule out underlying ischemic heart disease. The patient was supported with BiPAP. The patient was offered diuretics. The patient is currently on room air oxygen and the x-ray is completely cleared and there is resolution of the previous described pulmonary edema Acute hypoxic respiratory failure secondary to above. The patient is currently on room air oxygen New-onset atrial fibrillation with rapid ventricular response, converted back into normal sinus rhythm currently on amiodarone and the patient is currently on Eliquis, amiodarone and in the Route Chest pain Acute NSTEMI with troponin leak currently free of any chest pain Smoker Hypertension Migraine Insomnia maintenance Seroquel Chronic back and neck pain with previous back surgeries and previous insertion of a spine stimulator Mild to moderate aortic regurgitation, preserved LV function Plan Acute kidney injury is improving Continue same treatment Room air oxygen and the patient's pulmonary edema has recovered Continue diuretics, Lasix 20 mg by mouth daily Cardiac rhythm is sinus Clinically improving Repeat chest x-ray will next 24 hours Currently free of any chest pain Possible home today
--- NOTE | 2022-09-18 10:35 | P.PN ---
Subjective Progress Note Date: 09/18/22 PROGRESS NOTE The patient is a 57 old female who presented with dyspnea, peripheral edema and evidence of CHF with preserved systolic function. She has a history of hypertension, hyperlipidemia. She had paroxysmal atrial fibrillation but she is back in sinus mechanism. She's feeling better today. She denies any chest discomfort, dizziness or palpitations. Hemodynamically she is stable. September 18: The patient is feeling well today, she denies any chest discomfort, dizziness or palpitations. Her breathing is stable. She's feeling much better. She continues to be in sinus mechanism, ambulating without difficulties. Hemodynamically she is stable. Medications: Amiodarone 400 mg twice a day, furosemide 20 mg daily, Cozaar 12.5 mg daily, propranolol 80 mg daily, Zoloft, Lipitor 40 mg daily, Eliquis 5 mg twice a day PHYSICAL EXAMINATION: Blood pressure 117/70 heart rate 70 LUNGS: Clear to auscultation HEART: Regular rate and rhythm, S1, S2. No S3. systolic ejection murmur ABDOMEN: Soft, nontender, no organomegaly EXTREMETIES: No edema LAB: BUN 50, creatinine 1.27 IMPRESSION: 1. Paroxysmal atrial fibrillation, back in sinus mechanism 2. Probable CHF with preserved systolic function, stable 3. Worsening renal function, probably secondary to diuresis, improving 4. History of hypertension PLAN: 1. Decrease amiodarone 2. Probable discharge home today and follow-up as an outpatient Objective - Vital Signs Vital signs: Vital Signs Temp 97.8 F 09/18/22 07:35 Pulse 71 09/18/22 07:35 Resp 16 09/18/22 07:35 BP 117/76 09/18/22 07:35 Pulse Ox 96 09/18/22 07:35 FiO2 21 09/16/22 23:34 Intake & Output 09/17/22 09/18/22 09/18/22 17:59 06:59 18:59 Intake Total 128 Output Total Balance 128 Weight Intake: IV 10 Invasive Line 1 5 Invasive Line 2 5 Oral 118 Output: Urine Other: Voiding Method External Catheter # Voids - Labs CBC & Chem 7: 09/16/22 06:19 09/18/22 06:52 Labs: Abnormal Lab Results - Last 24 Hours (Table) 09/18/22 Range/Units 06:52 BUN 50 H (7-17) mg/dL Creatinine 1.27 H (0.52-1.04) mg/dL Glucose 107 H (74-99) mg/dL Microbiology - Last 24 Hours (Table) 09/15/22 09:07 Blood Culture - Preliminary Blood No Growth after 48 hours 09/15/22 09:11 Blood Culture - Preliminary Blood No Growth after 48 hours
--- NOTE | 2022-09-18 12:42 | P.DS ---
Providers Date of admission: 09/14/22 05:50 Expected date of discharge: 09/18/22 Attending physician: Alisha Linder MD Consults: 09/14/22 05:49 Consult Physician Urgent Consulting Provider: Jose A Conroy Consult Reason/Comments: chf Do you want consulting provider notified?: Yes 09/14/22 14:28 Consult Physician Routine Consulting Provider: Rosangela Swain Consult Reason/Comments: SOB, on Bipap Do you want consulting provider notified?: Yes Primary care physician: Physician Nonstaff Hospital Course: Discharge Diagnosis: New-onset acute CHF exacerbation Acute hypoxic respiratory failure New-onset atrial fibrillation with RVR Elevated troponin, demand ischemia Acute kidney injury likely due to diuretics Lactic acidosis Hypomagnesemia Hypokalemia Hypertension Leukocytosis, reactive Hospital Course: 57-year-old female with a PMH of hypertension who presents to the emergency room with complaints of shortness of breath and lower extremity edema. kendal arrival at the emergency room, the patient's SpO2 is 95% on BiPAP with respiratory rate 36, BP 191/125, and temp 98.0F. Chest x-ray in the emergency room revealed pulmonary edema. Laboratory evaluation was remarkable for troponin less than 0.02, WBC count 11.2, hemoglobin 15.7, platelets 189, sodium 141, potassium 3.5, chloride 109, CO2 20, BUN 12, creatinine 0.4, and lactic acid 2.6. Patient admitted for CHF exacerbation. Patient also went into rapid A. fib on 09/14. She was started on Cardizem drip, and then amiodarone drip. Amiodarone converted to oral, heparin drip converted to Eliquis. Patient also had acute kidney injury secondary to diuretic use, not improving. Being discharged on oral amiodarone, Eliquis, oral Lasix, and reduced dose of losartan. She will follow-up with cardiology in 1-2 weeks. Patient seen and examined at bedside. Vital signs reviewed and stable. General: nontoxic, no distress, appears at stated age Derm: warm, dry Head: atraumatic, normocephalic, symmetric Eyes: EOMI, no lid lag, anicteric sclera Mouth: no lip lesion, mucus membranes moist Cardiovascular: S1S2 reg, no murmur Lungs: CTA bilateral, no rhonchi, no rales , no accessory muscle use Abdominal: soft, nontender to palpation, no guarding, no appreciable organomegaly Ext: no gross muscle atrophy, no edema, no contractures Neuro: CN II-XI grossly intact, no focal neuro deficits Psych: Alert, oriented, appropriate affect A total of 33 minutes of time were spent preparing this complex discharge summary. Patient was discharged on 09/18/22 at 10:06 . Patient Condition at Discharge: Stable Plan - Discharge Summary Discharge Rx Participant: Yes New Discharge Prescriptions: New Apixaban [Eliquis] 5 mg PO BID #120 tab Atorvastatin [Lipitor] 40 mg PO HS #90 tab Amiodarone [Cordarone] See Rx Instructions .ROUTE .COMPLEX #60 tab Losartan [Cozaar] 12.5 mg PO DAILY #90 tab Furosemide [Lasix] 20 mg PO DAILY #90 tab Continue Ondansetron Odt [Zofran ODT] 4 mg PO Q8H PRN PRN Reason: Nausea Propranolol HCl [Propranolol HCl ER] 80 mg PO HS Cyclobenzaprine [Flexeril] 10 mg PO TID QUEtiapine [SEROquel] 500 mg PO HS Sertraline [Zoloft] 100 mg PO DAILY Omeprazole [PriLOSEC] 20 mg PO BID Fluticasone Nasal [place] [Flonase Nasal [place]] 2 spray EA NOSTRIL BID Aspirin EC [Ecotrin Low Dose] 81 mg PO DAILY busPIRone HCL 15 mg PO TID Discontinued Losartan Potassium [Cozaar] 100 mg PO DAILY Atorvastatin [Lipitor] 10 mg PO HS Ibuprofen [Motrin] 600 mg PO Q6HR PRN PRN Reason: Pain Discharge Medication List Aspirin EC [Ecotrin Low Dose] 81 mg PO DAILY 09/14/22 [History] Cyclobenzaprine [Flexeril] 10 mg PO TID 09/14/22 [History] Fluticasone Nasal [place] [Flonase Nasal [place]] 2 spray EA NOSTRIL BID 09/14/22 [History] Omeprazole [PriLOSEC] 20 mg PO BID 09/14/22 [History] Ondansetron Odt [Zofran ODT] 4 mg PO Q8H PRN 09/14/22 [History] Propranolol HCl [Propranolol HCl ER] 80 mg PO HS 09/14/22 [History] QUEtiapine [SEROquel] 500 mg PO HS 09/14/22 [History] Sertraline [Zoloft] 100 mg PO DAILY 09/14/22 [History] busPIRone HCL 15 mg PO TID 09/14/22 [History] Amiodarone [Cordarone] See Rx Instructions .ROUTE .COMPLEX #60 tab 09/18/22 [Rx] Apixaban [Eliquis] 5 mg PO BID #120 tab 09/18/22 [Rx] Atorvastatin [Lipitor] 40 mg PO HS #90 tab 09/18/22 [Rx] Furosemide [Lasix] 20 mg PO DAILY #90 tab 09/18/22 [Rx] Losartan [Cozaar] 12.5 mg PO DAILY #90 tab 09/18/22 [Rx] Follow up Appointment(s)/Referral(s): Ben Meyer MD [STAFF PHYSICIAN] - 2 Weeks (Please call to make a follow up appoitnemnt MONDAY when office is open) Nonstaff,Physician [Primary Care Provider] - 1-2 days (Please call to make a follow up appoitnemnt MONDAY when office is open) Patient Instructions/Handouts: Heart Failure (DC), A-fib (Atrial Fibrillation) (DC), Acute Kidney Injury (DC) Activity/Diet/Wound Care/Special Instructions: Please see your PCP within 2-3 days. You will need repeat blood work to check your kidney function. Please see your ammonium sulfate operator in 1-2 weeks. Discharge Disposition: HOME SELF-CARE
[2022-09-18] MEDS ORDERED: AMIODARONE 200 MG TAB PO SCH (21:00)
[2022-09-19] MEDS ORDERED: LOSARTAN 25 MG TAB PO SCH (09:00)
--- NOTE | 2022-09-22 10:16 | CDI ---
Documentation Clarification Form Date: 09/22/2022 9:48:52 AM From: Zoey Rahman Admit Date: 09/14/2022 5:50:00 AM Patient Name: Radha Dodd Visit Number: [id number] Discharge Date: 09/18/2022 11:38:00 AM ATTENTION: The Clinical Documentation Specialists (CDI) and [facility] Coding Staff appreciate your assistance in clarifying documentation. Please respond to the clarification below the line at the bottom and electronically sign. The CDI & [facility] Coding staff will review the response and follow-up if needed. Please note: Queries are made part of the Legal Health Record. If you have any questions, please contact the author of this message via ITS. Dr. Jimenez Looney Conflicting documentation has been found in the medical record. As attending physician, please provide clarification. Consult Note 09/15 and Progress Notes 09/16 09/18: Acute NSTEMI with troponin leak currently on IV heparin Consult Note 09/14 and Progress Notes 09/15 09/17: Mildly elevated troponins, flat, acute coronary syndrome ruled out Progress Notes 09/14 Discharge Summary 09/18: Elevated troponin, demand ischemia History/Risk Factors: 57 year old female presented with SOB, has a history of HTN, smoker. Clinical Indicators: patient presented in respiratory distress diagnosed with acute hypoxic respiratory failure, new onset of CHF, new onset of afib, has elevated troponins Troponins: 09/14 - 0.037, 0.033, 0.025, 0.051 09/15 - 0.061 Treatment: started on Cardizem drip, then amiodarone, converted to oral, IV heparin drip converted to eliquis, IV lasix Please clarify which diagnosis is most appropriate: [ ] NSTEMI [ x ] Type 2 NM due to demand ischemia/ CHF [ ] Demand ischemia [ ] Other (please specify) [ ] Unable to determine MTDD
--- NOTE | 2022-09-22 10:16 | CDI ---
Documentation Clarification Form Date: 09/22/2022 9:48:52 AM From: Zoey Rahman Admit Date: 09/14/2022 5:50:00 AM Patient Name: Radha Dodd Visit Number: [id number] Discharge Date: 09/18/2022 11:38:00 AM ATTENTION: The Clinical Documentation Specialists (CDI) and [facility] Coding Staff appreciate your assistance in clarifying documentation. Please respond to the clarification below the line at the bottom and electronically sign. The CDI & [facility] Coding staff will review the response and follow-up if needed. Please note: Queries are made part of the Legal Health Record. If you have any questions, please contact the author of this message via ITS. Dr. Jimenez Looney Conflicting documentation has been found in the medical record. As attending physician, please provide clarification. Progress Notes: 09/16 09/18: Acute CHF with preserved systolic function Progress Notes: 09/16 09/18: there is grade 1 diastolic dysfunction History/Risk Factors: 57 year old female presented with SOB, has a history of HTN, smoker. Clinical Indicators: patient presented in respiratory distress diagnosed with acute hypoxic respiratory failure, new onset of CHF, new onset of afib, has elevated troponins, CECE Echo Findings: left ventricular ejection fraction is estimated at 55-60 % Mild concentric left ventricular hypertrophy. Grade 1 diastolic dysfunction. Normal basal systolic function. Treatment: started on Cardizem drip, then amiodarone, converted to oral, IV heparin drip converted to eliquis, IV Lasix, stated on BIPAP Please clarify which diagnosis is most appropriate: [ x ] Acute CHF diastolic (preserved) dysfunction [ ] Acute CHF systolic (reduced) dysfunction [ ] Acute CHF diastolic and systolic dysfunction [ ] Other (please specify) [ ] Unable to determine MTDD
== END 2022-09-18 11:38 | disposition home or self-care (01) | DRG 194 ==
LOC: EC 04:06 → 3SCARD 05:50
PROVIDERS: ADMIT Internal Medicine; ATTEND Internal Medicine
DX: I11.0 Hypertensive heart disease with heart failure (principal); I50.31 Acute diastolic (congestive) heart failure; J96.01 Acute respiratory failure with hypoxia; N17.9 Acute kidney failure, unspecified; E87.20 Acidosis, unspecified; I21.A1 Myocardial infarction type 2; F17.210 Nicotine dependence, cigarettes, uncomplicated; E78.5 Hyperlipidemia, unspecified; I48.0 Paroxysmal atrial fibrillation; I35.1 Nonrheumatic aortic (valve) insufficiency; T50.1X5A Adverse effect of loop [high-ceiling] diuretics, initial encounter; D72.829 Elevated white blood cell count, unspecified; E83.42 Hypomagnesemia; F31.9 Bipolar disorder, unspecified; E87.6 Hypokalemia; G43.909 Migraine, unspecified, not intractable, without status migrainosus; G47.00 Insomnia, unspecified; F41.9 Anxiety disorder, unspecified; Z96.659 Presence of unspecified artificial knee joint; G89.29 Other chronic pain; M54.9 Dorsalgia, unspecified; M54.2 Cervicalgia; M51.36 Other intervertebral disc degeneration, lumbar region; Z96.661 Presence of right artificial ankle joint; Z20.822 Contact with and (suspected) exposure to COVID-19; Z79.899 Other long term (current) drug therapy; Z79.82 Long term (current) use of aspirin
CPT/HCPCS: 36415; 71045; 80048; 80053; 81001; 83605; 83735; 83880; 84145; 84484; 85025; 85379; 85610; 85730; 87040; 87636; 93005; 93306; 94660; 94760; 96365; 96366; 96367; 96372; 96375; 96376; 99291

== ENCOUNTER 2023-02-02 06:42 | Observation (INO) | payer OTHER ==
[2023-02-02] MEDS ORDERED: ASPIRIN 81 MG PO STA (07:16)
[2023-02-02] MEDS ORDERED: NITROGLYCERIN SL TABS 0.4 MG TAB SUBLINGUAL STA ×2 (07:16→08:15)
[2023-02-02] MEDS ORDERED: ONDANSETRON 4 MG/2 ML VIAL IVP STA (07:21)
--- NOTE | 2023-02-02 07:40 | ED ---
General Adult HPI - General Chief complaint: Chest Pain Stated complaint: Chest pain Time Seen by Provider: 02/02/23 07:13 Source: patient, RN notes reviewed, old records reviewed Mode of arrival: ambulatory - History of Present Illness Initial comments: Patient is a 57-year-old female who presents emergency department for chest pain. His history of heart failure, hypertension. Also atrial fibrillation. Patient apparently has run out of multiple medications and never refilled on this includes the blood thinner she was placed on Eliquis as well as Lasix. She states that symptoms of chest discomfort which is a pressure-like sensation over the left chest and this morning around 5 AM. However she has been having progressively worsening shortness of breath over the last few days to week. She has noticed increased leg swelling. She has noticed increased coughing. Has noticed increased worsening orthopnea. Denies PND. Endorses worsening exertional dyspnea. Denies any radiation of her chest pain. Endorses mild nausea as well with all of her symptoms. Denies abdominal pain. Denies any lightheadedness. Presents for further evaluation at this time. When I ask why she stopped taking her blood thinning medication as well as her other medications, she states she ran out of the prescription and did not refill them. - Related Data Home Medications Medication Instructions Recorded Confirmed Aspirin EC [Ecotrin Low Dose] 81 mg PO DAILY 09/14/22 02/02/23 Fluticasone Nasal [place] [Flonase 2 spr EA NOSTRIL BID 09/14/22 02/02/23 Nasal [place]] Omeprazole [PriLOSEC] 20 mg PO BID 09/14/22 02/02/23 Ondansetron Odt [Zofran ODT] 4 mg PO Q8H PRN 09/14/22 02/02/23 QUEtiapine [SEROquel] 500 mg PO HS 09/14/22 02/02/23 Sertraline [Zoloft] 100 mg PO DAILY 09/14/22 02/02/23 busPIRone HCL 15 mg PO QID 09/14/22 02/02/23 Ibuprofen [Motrin] 600 mg PO Q6H PRN 02/02/23 02/02/23 methocarbamoL [Robaxin] 500 mg PO TID 02/02/23 02/02/23 Previous Rx's Medication Instructions Recorded Atorvastatin [Lipitor] 40 mg PO HS #90 tab 09/18/22 Losartan [Cozaar] 12.5 mg PO DAILY #90 tab 09/18/22 Allergies Allergy/AdvReac Type Severity Reaction Status Date / Time No Known Allergies Allergy Verified 02/02/23 09:16 Review of Systems ROS Statement: Those systems with pertinent positive or pertinent negative responses have been documented in the HPI. Review of Systems: CONST: Denies fever EYES: Denies blurry vision ENT: Denies nasal congestion C/V: Endorses chest pain RESP: Endorses shortness of breath GI: Denies abdominal pain : Denies dysuria SKIN: Denies rash. MSK: Denies joint pain. NEURO: Denies headache ROS Other: All systems not noted in ROS Statement are negative. Past Medical History Past Medical History: Heart Failure, Hypertension Additional Past Medical History / Comment(s): smoker, insomnia, migraine, hypertension, chronic back pain and neck pain and she has lumbar disk disease and she had lumbar surgery x4 and spine stimulator History of Any Multi-Drug Resistant Organisms: None Reported Past Surgical History: Cholecystectomy Additional Past Surgical History / Comment(s): spinal implant in back, knee replacement Past Anesthesia/Blood Transfusion Reactions: No Reported Reaction Past Psychological History: No Psychological Hx Reported, Anxiety, Bipolar, Depression Smoking Status: Current every day smoker Past Alcohol Use History: None Reported Past Drug Use History: None Reported - Past Family History Mother Family Medical History: Congestive Heart Failure (CHF) General Exam - General Exam Comments Initial Comments: General: Appears in no acute distress. HEAD: Normal with no signs of head trauma. EYES: PERRLA, EOMI, conjunctiva normal, no discharge. ENT: Hearing grossly intact, normal oropharynx. RESPIRATORY: Clear breath sounds bilaterally. No wheezes, rales, or rhonchi. No hypoxia. No increased work of breathing. C/V: Regular rate and rhythm. S1 and S2 auscultated, bilateral symmetric pitting edema., peripheral pulses 2+ and intact throughout. Chest pain is not reproducible on palpation or with movement. ABD: Abd is soft, nontender, nondistended EXT: Normal range of motion, no obvious deformity SKIN: No rashes or lesions observed on exposed skin. NEURO: Alert and oriented 4. Course Vital Signs 02/02/23 02/02/23 06:42 08:10 Temperature 98.0 F Pulse Rate 97 Respiratory 22 Rate Blood Pressure 172/106 181/94 O2 Sat by Pulse 96 Oximetry Medical Decision Making - Medical Decision Making Was pt. sent in by a medical professional or institution (CORIE Hinson, SENIOR UX DESIGNER, urgent care, hospital, or [place] [facility] facility...) When possible be specific @ -No Did you speak to anyone other than the patient for history (EMS, parent, family, police, friend...)? What history was obtained from this source @ -No Did you review nursing and triage notes (agree or disagree)? Why? @ -I reviewed and agree with nursing and triage notes Were old charts reviewed (outside hosp., previous admission, EMS record, old EKG, old radiological studies, urgent care reports/EKG's, [place] [facility] records)? Report findings @ -Charts reviewed from September 2022 Differential Diagnosis (chest pain, altered mental status, abdominal pain women, abdominal pain men, vaginal bleeding, weakness, fever, dyspnea, syncope, headache, dizziness, GI bleed, back pain, seizure, CVA, palpatations, mental health, musculoskeletal)? @ -Differential Chest Pain: Stable Angina, Unstable Angina, STEMI, NSTEMI Aortic Dissection, Pneumothorax, Musculoskeletal, Esophageal Spasm GERD, Cholecystitis, Pancreatitis, Zoster, this is not meant to be an all-inclusive list. Differential Dyspnea: Coronary syndrome, arrhythmia, tamponade, asthma, COPD, pulmonary embolism, pneumonia, pneumothorax, pulmonary effusion, anaphylaxis, diabetic ketoacidosis, flailed chest, pulmonary contusion, diaphragmatic rupture, anemia, neuromuscular, this is not meant to be an all-inclusive list. EKG interpreted by me (3pts min.). @ -As above X-rays interpreted by me (1pt min.). @ -Chest x-ray shows reveals bilateral mild to moderate pulmonary vascular congestion suggestive of CHF. CT interpreted by me (1pt min.). @ -None done U/S interpreted by me (1pt. min.). @ -None done What testing was considered but not performed or refused? (CT, X-rays, U/S, labs)? Why? @ -None What meds were considered but not given or refused? Why? @ -None Did you discuss the management of the patient with other professionals (professionals i.e. CORIE Hinson, SENIOR UX DESIGNER, lab, RT, psych nurse, nephrology social worker, mechanical striper, teacher, psychological operations officer, case mgr)? Give summary @ -Discussed with Dr. Looney who accepted the admission. Was smoking cessation discussed for >3mins.? @ -No Was critical care preformed (if so, how long)? @ -No Were there social determinants of health that impacted care today? How? (Homelessness, low income, unemployed, alcoholism, drug addiction, transportation, low edu. Level, literacy, decrease access to med. care, [place] [facility], rehab)? @ -No Was there de-escalation of care discussed even if they declined (Discuss DNR or withdrawal of care, Hospice)? DNR status @ -No What co-morbidities impacted this encounter? (DM, HTN, Smoking, COPD, CAD, Cancer, CVA, ARF, Chemo, Hep., AIDS, mental health diagnosis, sleep apnea, morbid obesity)? @ -None Was patient admitted / discharged? Hospital course, mention meds given and route, prescriptions, significant lab abnormalities, going to OR and other pertinent info. @ -Based on the patient's presentation and physical exam, I'm concerned for was likely CHF exacerbation but cannot rule out other cardiopulmonary etiology at this time. Patient has been noncompliant with her Lasix as well as her blood thinning medication for A. fib. We will obtain a cardiopulmonary workup. She'll receive aspirin as well as nitroglycerin tablets. Vital signs are currently within acceptable limits. She was in agreement this plan. EKG shows no significant change from prior EKGs from September 2022.Chest x-ray shows findings of mild CHF exacerbation. Patient's labs are remarkable for a hypokalemia at 3.3 which is replenished. Troponin is undetectable. Following 2 nitro tablets, patient's pain is controlled. She denies a headache. She'll receive Toradol for headache. Recommended admission to the hospital at this time. We will restart her on request, placed on IV Lasix, consult cardiology. She was in agreement this plan. I spoke with the admitting physician, Dr. Looney who accepted the admission. Undiagnosed new problem with uncertain prognosis? @ -No Drug Therapy requiring intensive monitoring for toxicity (Heparin, Nitro, Insulin, Cardizem)? @ -No Were any procedures done? @ -No Diagnosis/symptom? @ -Chest pain, CHF exacerbation, medication noncompliance Acute, or Chronic, or Acute on Chronic? @ -Acute on chronic Uncomplicated (without systemic symptoms) or Complicated (systemic symptoms)? @ -Complicated Side effects of treatment? @ -none Exacerbation, Progression, or Severe Exacerbation] @ -no Poses a threat to life or bodily function? @ -Yes - Lab Data Result diagrams: 02/02/23 07:26 02/02/23 07:26 Lab Results 02/02/23 02/02/23 02/02/23 Range/Units 07:26 07:26 07:26 WBC 7.1 (3.8-10.6) k/uL RBC 4.17 (3.80-5.40) m/uL Hgb 12.6 (11.4-16.0) gm/dL Hct 36.4 (34.0-46.0) % MCV 87.2 (80.0-100.0) fL MCH 30.1 (25.0-35.0) pg MCHC 34.5 (31.0-37.0) g/dL RDW 14.0 (11.5-15.5) % Plt Count 175 (150-450) k/uL MPV 9.6 Neutrophils % 67 % Lymphocytes % 25 % Monocytes % 5 % Eosinophils % 1 % Basophils % 0 % Neutrophils # 4.8 (1.3-7.7) k/uL Lymphocytes # 1.8 (1.0-4.8) k/uL Monocytes # 0.3 (0-1.0) k/uL Eosinophils # 0.1 (0-0.7) k/uL Basophils # 0.0 (0-0.2) k/uL PT 11.0 (9.0-12.0) sec INR 1.0 (<1.2) APTT 26.4 (22.0-30.0) sec Sodium 142 (137-145) mmol/L Potassium 3.3 L (3.5-5.1) mmol/L Chloride 110 H (98-107) mmol/L Carbon Dioxide 25 (22-30) mmol/L Anion Gap 7 mmol/L BUN 11 (7-17) mg/dL Creatinine 0.78 (0.52-1.04) mg/dL Est GFR (CKD-EPI)AfAm >90 (>60 ml/min/1.73 sqM) Est GFR (CKD-EPI)NonAf 85 (>60 ml/min/1.73 sqM) Glucose 102 H (74-99) mg/dL Calcium 8.7 (8.4-10.2) mg/dL Magnesium 1.9 (1.6-2.3) mg/dL Total Bilirubin 0.5 (0.2-1.3) mg/dL AST 24 (14-36) U/L ALT 33 (4-34) U/L Alkaline Phosphatase 82 (38-126) U/L Troponin I (0.000-0.034) ng/mL NT-Pro-B Natriuret Pep 690 pg/mL Total Protein 6.4 (6.3-8.2) g/dL Albumin 3.9 (3.5-5.0) g/dL Lipase 56 (23-300) U/L 02/02/23 Range/Units 07:26 WBC (3.8-10.6) k/uL RBC (3.80-5.40) m/uL Hgb (11.4-16.0) gm/dL Hct (34.0-46.0) % MCV (80.0-100.0) fL MCH (25.0-35.0) pg MCHC (31.0-37.0) g/dL RDW (11.5-15.5) % Plt Count (150-450) k/uL MPV Neutrophils % % Lymphocytes % % Monocytes % % Eosinophils % % Basophils % % Neutrophils # (1.3-7.7) k/uL Lymphocytes # (1.0-4.8) k/uL Monocytes # (0-1.0) k/uL Eosinophils # (0-0.7) k/uL Basophils # (0-0.2) k/uL PT (9.0-12.0) sec INR (<1.2) APTT (22.0-30.0) sec Sodium (137-145) mmol/L Potassium (3.5-5.1) mmol/L Chloride (98-107) mmol/L Carbon Dioxide (22-30) mmol/L Anion Gap mmol/L BUN (7-17) mg/dL Creatinine (0.52-1.04) mg/dL Est GFR (CKD-EPI)AfAm (>60 ml/min/1.73 sqM) Est GFR (CKD-EPI)NonAf (>60 ml/min/1.73 sqM) Glucose (74-99) mg/dL Calcium (8.4-10.2) mg/dL Magnesium (1.6-2.3) mg/dL Total Bilirubin (0.2-1.3) mg/dL AST (14-36) U/L ALT (4-34) U/L Alkaline Phosphatase (38-126) U/L Troponin I <0.012 (0.000-0.034) ng/mL NT-Pro-B Natriuret Pep pg/mL Total Protein (6.3-8.2) g/dL Albumin (3.5-5.0) g/dL Lipase (23-300) U/L - EKG Data -: EKG Interpreted by Me EKG Comments: 12-lead Electrocardiogram Interpretation Note EKG was reviewed and interpreted by myself. 12-lead ECG performed at 0652 is interpreted by me as revealing normal sinus rhythm at a rate of 72 beats per minute. [place] is normal. TX Intervals 143 ms, QRS duration is 92 ms, QTc is 431 ms.. There were no acute ST or T wave abnormalities to suggest myocardial ischemia or injury. R wave progression across the precordium was satisfactory. By my interpretation this EKG is non-diagnostic for acute ischemia. When compared with EKGs from September 2022, no significant change except patient is not actively in atrial fibrillation at this time. 12-lead Electrocardiogram Interpretation Note EKG was reviewed and interpreted by myself. 12-lead ECG performed at 0753 is interpreted by me as revealing normal sinus rhythm at a rate of 83 beats per minute. [place] is normal. TX interval is 156 ms, QRS duration is 100 ms, QTc is 443 ms.. There were no ST or T wave abnormalities to suggest myocardial ischemia or injury. R wave progression across the precordium was satisfactory. By my interpretation this EKG is non-diagnostic for acute ischemia. No si gnificant change from earlier EKG. Disposition Clinical Impression: Chest pain, Noncompliance with medication regimen, CHF exacerbation Disposition: ADMITTED IP TO THIS HOSP Condition: Stable Referrals: None,Stated [REFERRING] - 1-2 days Time of Disposition: 08:56
[2023-02-02 07:52] LABS: Basophils % (A) 0 %; Eosinophils # (A) 0.1 k/uL (0-0.7); Eosinophils % (A) 1 %; HCT 36.4 % (34.0-46.0); HGB 12.6 gm/dL (11.4-16.0); Lymphocytes # (A) 1.8 k/uL (1.0-4.8); Lymphocytes % (A) 25 %; MCH 30.1 pg (25.0-35.0); MCHC 34.5 g/dL (31.0-37.0); MCV 87.2 fL (80.0-100.0); Mean Platelet Volume 9.6; Monocytes # (A) 0.3 k/uL (0-1.0); Monocytes % (A) 5 %; Neutrophils # (A) 4.8 k/uL (1.3-7.7); Neutrophils % (A) 67 %; Platelet Count 175 k/uL (150-450); RBC 4.17 m/uL (3.80-5.40); WBC 7.1 k/uL (3.8-10.6)
[2023-02-02 08:14] LABS: ALT 33 U/L (4-34); AST 24 U/L (14-36); African American GFR (CKD) >90 (>60 ml/min/1.73 sqM); Albumin 3.9 g/dL (3.5-5.0); Alkaline Phosphatase 82 U/L (38-126); Anion Gap 7 mmol/L; Blood Urea Nitrogen 11 mg/dL (7-17); Calcium 8.7 mg/dL (8.4-10.2); Carbon Dioxide 25 mmol/L (22-30); Chloride 110 mmol/L (98-107); Glucose 102 mg/dL (74-99); Lipase 56 U/L (23-300); Magnesium 1.9 mg/dL (1.6-2.3); Non-African American GFR(CKD) 85 (>60 ml/min/1.73 sqM); Potassium 3.3 mmol/L (3.5-5.1); Sodium 142 mmol/L (137-145); Total Bilirubin 0.5 mg/dL (0.2-1.3); Total Protein 6.4 g/dL (6.3-8.2)
[2023-02-02 08:22] LABS: NT-Pro-B-Type Natriuretic Pept 690 pg/mL; Partial Thromboplastin Time 26.4 sec (22.0-30.0)
--- NOTE | 2023-02-02 08:32 | XR ---
EXAMINATION TYPE: XR chest 2V DATE OF EXAM: 02/02/2023 COMPARISON: 09/16/2022 HISTORY: 57-year-old female with chest pain and shortness of breath TECHNIQUE: PA and lateral views FINDINGS: ACF hardware. Heart mildly enlarged. Spinal stimulator reason for along the mid to lower thoracic spi nal canal. Interstitial and vascular prominence. No nikki consolidation or pleural effusion. Minimal patchy posterior basilar opacity in the lateral view. IMPRESSION: 1. Mild cardiomegaly and interstitial/vascular prominence. Correlate for mild CHF with pulmonary vasc ular congestion. 2. Some mild patchy atelectasis versus early infiltrate/edema posteriorly at the lung base on the lat eral view.
[2023-02-02] MEDS ORDERED: KETOROLAC 15 MG/ML 1 ML VIAL IVP STA (08:54)
[2023-02-02] MEDS ORDERED: NALOXONE 0.4 MG/ML 1 ML VIAL IV PRN (09:09)
[2023-02-02] MEDS ORDERED: ONDANSETRON 4 MG/2 ML VIAL IVP PRN (09:09)
[2023-02-02] MEDS: FUROSEMIDE 10 MG/ML 4 ML VIAL IV SCH ×2 (09:11→20:50)
[2023-02-02] MEDS: NITROGLYCERIN OINT 1 INCH/GM PACKET TOPICAL SCH ×3 (09:12→20:52)
[2023-02-02] MEDS: APIXABAN 5 MG TAB PO SCH ×2 (09:12→20:51)
[2023-02-02] MEDS: ACETAMINOPHEN TAB 325 MG TAB PO PRN ×2 (11:01→18:00)
[2023-02-02] MEDS ORDERED: POTASSIUM CHLORIDE ER 20 MEQ TAB.ER PO STA (13:17)
[2023-02-02] MEDS ORDERED: LORazepam 0.5 MG TAB PO STA (13:37)
[2023-02-02] MEDS ORDERED: hydrALAZINE HCL 20 MG/ML 1 ML VIAL IVP STA (14:14)
[2023-02-02] MEDS ORDERED: LOSARTAN 25 MG TAB PO SCH (14:15)
[2023-02-02] MEDS ORDERED: LOSARTAN 25 MG TAB PO STA (15:43)
[2023-02-02] MEDS: methocarbamoL 500 MG TAB PO SCH ×2 (16:14→20:52)
--- NOTE | 2023-02-02 16:18 | P.HPIM ---
History of Present Illness H&P Date: 02/02/23 Patient is a 57-year-old female with history of recently diagnosed diastolic CHF and atrial fibrillation presenting with worsening dyspnea and chest pain. She claims that she ran out of her new cardiac medications 3 weeks ago. She has been taking her medications. She did not make appointment with [facility] after her last hospitalization. She has been having increased lower extremity edema, exertional dyspnea, dyspnea rest and orthopnea. She did start having chest pain mostly left-sided nonradiating, sharp in nature that started this morning. She denies any fevers, chills, recent travel history. In the ED, temperature was 98, pulse 97, respiratory rate 22, blood pressure 172/106, saturating at 96% on room air. CBC unremarkable, potassium 4.3, glucose under, troponin negative 2, proBNP 690. Chest x-ray shows mild CHF or pulmonary vascular congestion, independently interpreted. EKG shows normal sinus rhythm, independently interpreted. Patient admitted for CHF exacerbation. Pertinent positives and negatives as discussed in HPI, a complete review of systems was performed and all other systems are negative. Patient seen and examined at bedside. Vital signs reviewed General: nontoxic, no distress, appears at stated age Derm: warm, dry Head: atraumatic, normocephalic, symmetric Eyes: EOMI, no lid lag, anicteric sclera, pupils equal round reactive to light ENT: Nose and ears atraumatic Neck: No thyromegaly, supple Mouth: no lip lesion, mucus membranes moist Cardiovascular: S1S2 reg, no murmur, pitting edema Lungs: Bilateral rales, no wheeze, no accessory muscle use Abdominal: soft, nontender to palpation, no guarding, no appreciable organomeg katie Ext: no gross muscle atrophy, muscle strength muscle strength 5 out of 5 in all 4 extremities, no contractures Neuro: CN II-XII grossly intact Psych: Alert, oriented, appropriate affect Assessment/Plan: Active: Diastolic CHF exacerbation in the setting of medical noncompliance Paroxysmal Atrial fibrillation, currently in sinus Malignant hypertension Atypical Chest pain, rule out ACS Nicotine dependence, half pack per day -Lasix 40 mg twice a day, also on topical nitroglycerin for afterload reduction -Losartan increased to 25 mg daily, continue to monitor renal function -Rest of the home medications restarted -Telemetry, cardiology consult -Trend troponin -I's and O's -Counseled regarding smoking cessation Chronic: Depression/anxiety The patient is admitted with an anticipated less than 2 midnight stay as observation status for evaluation of dyspnea. Surrogate decision-maker: Spouse CODE STATUS: Full code DVT prophylaxis: Jose Anticipated discharge date: 1-[address]: Home A total of 55 minutes was spent on the care of this complex patient more than 50% of the time was spent in counseling and care coordination. Past Medical History Past Medical History: Heart Failure, Hypertension Additional Past Medical History / Comment(s): smoker, insomnia, migraine, hypertension, chronic back pain and neck pain and she has lumbar disk disease and she had lumbar surgery x4 and spine stimulator History of Any Multi-Drug Resistant Organisms: None Reported Past Surgical History: Cholecystectomy Additional Past Surgical History / Comment(s): spinal implant in back, knee replacement Past Anesthesia/Blood Transfusion Reactions: No Reported Reaction Past Psychological History: No Psychological Hx Reported, Anxiety, Bipolar, Depression Smoking Status: Current every day smoker Past Alcohol Use History: None Reported Past Drug Use History: None Reported - Past Family History Mother Family Medical History: Congestive Heart Failure (CHF) Medications and Allergies Home Medications Medication Instructions Recorded Confirmed Type Aspirin EC [Ecotrin Low Dose] 81 mg PO DAILY 09/14/22 02/02/23 History Fluticasone Nasal [place] [Flonase 2 spr EA NOSTRIL BID 09/14/22 02/02/23 History Nasal [place]] Omeprazole [PriLOSEC] 20 mg PO BID 09/14/22 02/02/23 History Ondansetron Odt [Zofran ODT] 4 mg PO Q8H PRN 09/14/22 02/02/23 History QUEtiapine [SEROquel] 500 mg PO HS 09/14/22 02/02/23 History Sertraline [Zoloft] 100 mg PO DAILY 09/14/22 02/02/23 History busPIRone HCL 15 mg PO QID 09/14/22 02/02/23 History Atorvastatin [Lipitor] 40 mg PO HS #90 tab 09/18/22 02/02/23 Rx Losartan [Cozaar] 12.5 mg PO DAILY #90 tab 09/18/22 02/02/23 Rx Ibuprofen [Motrin] 600 mg PO Q6H PRN 02/02/23 02/02/23 History methocarbamoL [Robaxin] 500 mg PO TID 02/02/23 02/02/23 History Allergies Allergy/AdvReac Type Severity Reaction Status Date / Time No Known Allergies Allergy Verified 02/02/23 09:16 Physical Exam Vitals: Vital Signs Temp Pulse Resp BP Pulse Ox 02/02/23 15:23 85 18 182/101 97 02/02/23 15:00 87 21 182/99 95 02/02/23 14:42 85 16 182/92 98 02/02/23 14:40 79 185/99 99 02/02/23 14:10 190/94 02/02/23 14:00 74 25 H 170/128 94 L 02/02/23 13:00 80 22 179/90 96 02/02/23 12:42 80 20 179/90 98 02/02/23 12:40 72 9 L 179/90 97 02/02/23 12:30 85 29 H 179/90 95 02/02/23 12:20 82 11 L 179/90 96 02/02/23 12:10 86 21 179/90 94 L 02/02/23 12:00 70 23 179/90 93 L 02/02/23 11:50 85 24 179/90 95 02/02/23 11:40 80 11 L 179/90 98 02/02/23 11:30 71 15 180/86 93 L 02/02/23 11:20 80 22 179/90 93 L 02/02/23 11:10 71 9 L 179/90 96 02/02/23 11:00 76 22 179/90 94 L 02/02/23 10:50 67 19 185/101 95 02/02/23 10:49 67 16 185/101 96 02/02/23 08:10 181/94 02/02/23 06:42 98.0 F 97 22 172/106 96 Intake and Output 02/02/23 02/02/23 02/02/23 06:59 14:59 22:59 Other: Weight 99.79 kg Results CBC & Chem 7: 02/02/23 07:26 02/02/23 07:26 Labs: Abnormal Lab Results - Last 24 Hours (Table) 02/02/23 Range/Units 07:26 Potassium 3.3 L (3.5-5.1) mmol/L Chloride 110 H (98-107) mmol/L Glucose 102 H (74-99) mg/dL
[2023-02-02] MEDS: busPIRone HCl 5 MG TAB PO SCH ×2 (18:00→20:52)
[2023-02-02] MEDS: PANTOPRAZOLE 40 MG TABLET PO SCH (20:51)
[2023-02-02] MEDS ORDERED: QUEtiapine 100 MG TAB PO SCH (21:00)
[2023-02-02] MEDS ORDERED: ATORVASTATIN 40 MG TAB PO SCH (21:00)
[2023-02-02] MEDS: FLUTICASONE 50MCG/SPRAY NASAL 16GM EA NOSTRIL SCH (22:10)
[2023-02-03] MEDS ORDERED: DOBUTamine DRIP for NUC MED 500 MG/250 ML BAG IV ONE (08:00)
[2023-02-03 08:08] VITALS: RESP 16
[2023-02-03] MEDS ORDERED: DOBUTamine DRIP for NUC MED 500 MG in DEXTROSE/WATER 1 250ML.BAG IV PRN ×2 (08:15→08:29)
[2023-02-03 08:37] LABS: Basophils # (A) 0.04 X 10*3/uL (0.00-0.10); Basophils % (A) 0.6 %; Eosinophils # (A) 0.05 X 10*3/uL (0.04-0.35); Eosinophils % (A) 0.8 %; HGB 14.2 d/dL (12.0-15.0); Lymphocytes # (A) 1.54 X 10*3/uL (0.90-5.00); Lymphocytes % (A) 24.8 %; MCHC 34.6 d/dL (32.0-37.0); MCV 86.7 FL (80.0-97.0); Mean Platelet Volume 11.4 FL (9.5-12.2); Monocytes # (A) 0.55 X 10*3/uL (0.20-1.00); Monocytes % (A) 8.9 %; NRBC Per 100 WBC 0 X 10*3/uL (0.00-0.01); Neutrophils # (A) 3.97 X 10*3/uL (1.80-7.70); Neutrophils % (A) 64.1 %; Platelet Count 212 X 10*3/uL (140-440); RBC 4.73 X 10*6/uL (4.10-5.20); RDW 13.2 % (11.5-14.5)
[2023-02-03] MEDS ORDERED: LOSARTAN 25 MG TAB PO SCH (09:00)
[2023-02-03] MEDS ORDERED: SERTRALINE 100 MG TAB PO SCH (09:00)
[2023-02-03] MEDS ORDERED: ASPIRIN 81 MG PO SCH (09:00)
[2023-02-03] MEDS: APIXABAN 5 MG TAB PO SCH (09:21)
[2023-02-03] MEDS: busPIRone HCl 5 MG TAB PO SCH ×2 (09:21→12:02)
[2023-02-03] MEDS: PANTOPRAZOLE 40 MG TABLET PO SCH (09:22)
[2023-02-03] MEDS: NITROGLYCERIN OINT 1 INCH/GM PACKET TOPICAL SCH (09:23)
[2023-02-03 09:51] LABS: BUN/Creat Ratio 10.11 Ratio (12.00-20.00); Blood Urea Nitrogen 9.1 mg/dL (9.0-27.0); Chloride 104 mmol/L (96-109); Glucose 109 mg/dL (70-110); Potassium 2.9 mmol/L (3.5-5.5); Sodium 144 mmol/L (135-145)
[2023-02-03 09:52] LABS: Calcium 9.3 mg/dL (8.7-10.3); Carbon Dioxide 22.8 mmol/L (21.6-31.8); Magnesium 1.9 mg/dL (1.5-2.4)
[2023-02-03] MEDS ORDERED: ATROPINE SULFATE 0.1 MG/ML 10ML SYRINGE ONE (09:55)
[2023-02-03] MEDS: POTASSIUM CHLORIDE ER 20 MEQ TAB.ER PO SCH ×2 (10:42→12:02)
[2023-02-03] MEDS: FUROSEMIDE 10 MG/ML 4 ML VIAL IV SCH (10:42)
[2023-02-03] MEDS: methocarbamoL 500 MG TAB PO SCH (10:42)
[2023-02-03] MEDS: FLUTICASONE 50MCG/SPRAY NASAL 16GM EA NOSTRIL SCH (10:43)
--- NOTE | 2023-02-03 10:59 | P.CRDCN ---
History of Present Illness Consult date: 02/03/23 History of present illness: HISTORY OF PRESENT ILLNESS: This is a 57-year-old with a past medical history significant for hypertension, hyperlipidemia, depression, paroxysmal atrial fibrillation. Patient did not follow up with Dr. Meyer as instructed in September 2022. We have been asked to see the patient in consultation for chest pain. Patient states that she developed left upper anterior chest pain that was new. She denies having any lightheadedness or dizziness, no palpitations, no nausea or vomiting. She states she had the same sensation when she was here in the hospital in September. In September of this year, patient was seen by cardiology for a new onset of paroxysmal atrial fibrillation and probable CHF with preserved systolic function. Patient states she ran out of her medications because she could not find a primary care doctor and did not follow-up with cardiology as she did not think her insurance was accepted at the office. She denies having diabetes, no seizure or stroke, no palpitations, no lower extremity edema, no syncopal episodes. She is a smoker of one pack per day currently down to half a pack per day. The last couple days she has had increasing shortness of breath. EKG reveals sinus mechanism with no signs of acute ischemia Chest xray mild cardiomegaly and interstitial vascular prominence correlate for mild CHF and pulmonary vascular congestion. Symptoms mild patchy atelectasis versus early infiltrate edema at the lung base on the lateral view. CBC is normal. Sodium 144, potassium 2.9, chloride 104, CO2 22, BUN 9 and creatinine 0.9. Troponin negative 3. ProBNP 690. Liver function tests are normal. Magnesium 1.9. Lipase 56. Current home cardiac medications include aspirin 81 mg daily, Lipitor 40 mg daily, losartan 12.5 mg daily Echocardiogram 09/14/2022 performed at [facility] revealed normal LV syst olic function, moderate MR and moderate AI REVIEW OF SYSTEMS: At the time of my exam: CONSTITUTIONAL: Denies fever or chills. HEENT: Denies blurred vision, vision changes, or eye pain. Denies hemoptysis CARDIOVASCULAR: Denies chest pain. Denies orthopnea. Denies PND. Denies palpitations RESPIRATORY: Reports shortness of breath. GASTROINTESTINAL: Denies abdominal pain. Denies nausea or vomiting. HEMATOLOGIC: Denies bleeding disorders. GENITOURINARY: Denies any blood in urine. SKIN: Denies pruitis. Denies rash. PHYSICAL EXAM: VITAL SIGNS: Reviewed. GENERAL: Well-developed in no acute distress. HEENT: Head is normocephalic. Pupils are equal, round. Sclerae anicteric. Mucous membranes of the mouth are moist. Neck supple. No JVD or thyromegaly LUNGS: Respirations even and unlabored. Lungs diminished with rhonchi and crackles at the bases HEART: Regular rate and rhythm. S1 and S2 heard. Systolic ejection murmur ABDOMEN: Soft. Nondistended. Nontender. EXTREMITIES: Normal range of motion. No clubbing or cyanosis. Peripheral pulses intact. Trace bilateral lower extremity edema NEUROLOGIC: Awake and alert. Oriented x 3. ASSESSMENT: Chest pain, noncardiac, acute coronary syndrome ruled out Paroxysmal atrial fibrillation Hypertension Hyperlipidemia Depression Nicotine dependence, patient smokes 1/2 pack per day. Noncompliance PLAN: Resume patient's home cardiac medications No need to repeat echocardiogram as this was done in September Schedule patient for dobutamine stress echo today. If dobutamine stress test is negative, patient is cleared for discharge home. If this is positive, patient will be scheduled for cardiac catheterization. Further recommendations pending patient's course Thank you kindly for this consultation. Nurse practitioner note has been reviewed by physician. Signing provider agrees with the documented findings, assessment, and plan of care. Past Medical History Past Medical History: Heart Failure, Hypertension Additional Past Medical History / Comment(s): smoker 0.5 ppd, insomnia, migraine, hypertension, chronic back pain and neck pain and she has lumbar disk disease and she had lumbar surgery x4 and spine stimulator History of Any Multi-Drug Resistant Organisms: None Reported Past Surgical History: Cholecystectomy Additional Past Surgical History / Comment(s): spinal implant in back, knee r eplacement, right ankle Past Anesthesia/Blood Transfusion Reactions: No Reported Reaction Past Psychological History: No Psychological Hx Reported, Anxiety, Bipolar, Depression Additional Psychological History / Comment(s): severe anxiety Smoking Status: Current every day smoker Past Alcohol Use History: None Reported Past Drug Use History: None Reported - Past Family History Mother Family Medical History: Congestive Heart Failure (CHF) Medications and Allergies Home Medications Medication Instructions Recorded Confirmed Type Aspirin EC [Ecotrin Low Dose] 81 mg PO DAILY 09/14/22 02/02/23 History Fluticasone Nasal [place] [Flonase 2 spr EA NOSTRIL BID 09/14/22 02/02/23 History Nasal [place]] Omeprazole [PriLOSEC] 20 mg PO BID 09/14/22 02/02/23 History Ondansetron Odt [Zofran ODT] 4 mg PO Q8H PRN 09/14/22 02/02/23 History QUEtiapine [SEROquel] 500 mg PO HS 09/14/22 02/02/23 History Sertraline [Zoloft] 100 mg PO DAILY 09/14/22 02/02/23 History busPIRone HCL 15 mg PO QID 09/14/22 02/02/23 History Atorvastatin [Lipitor] 40 mg PO HS #90 tab 09/18/22 02/02/23 Rx Losartan [Cozaar] 12.5 mg PO DAILY #90 tab 09/18/22 02/02/23 Rx Ibuprofen [Motrin] 600 mg PO Q6H PRN 02/02/23 02/02/23 History methocarbamoL [Robaxin] 500 mg PO TID 02/02/23 02/02/23 History Allergies Allergy/AdvReac Type Severity Reaction Status Date / Time No Known Allergies Allergy Verified 02/02/23 09:16 Physical Exam Vitals: Vital Signs Temp Pulse Pulse Resp BP BP Pulse Ox 02/03/23 02:35 97.8 F 94 14 164/77 96 02/02/23 19:40 97.9 F 81 16 164/80 92 L 02/02/23 17:27 98.2 F 76 16 86/54 97 02/02/23 16:48 98.5 F 90 19 169/89 95 02/02/23 16:40 98 20 170/92 02/02/23 16:30 86 20 172/88 95 02/02/23 16:20 85 22 177/93 96 02/02/23 16:10 87 16 175/92 97 02/02/23 16:00 98.5 F 93 20 174/94 95 02/02/23 15:23 85 18 182/101 97 02/02/23 15:00 87 21 182/99 95 02/02/23 14:42 85 16 182/92 98 02/02/23 14:40 79 185/99 99 02/02/23 14:10 190/94 02/02/23 14:00 74 25 H 170/128 94 L 02/02/23 13:00 80 22 179/90 96 02/02/23 12:42 80 20 179/90 98 02/02/23 12:40 72 9 L 179/90 97 02/02/23 12:30 85 29 H 179/90 95 02/02/23 12:20 82 11 L 179/90 96 02/02/23 12:10 86 21 179/90 94 L 02/02/23 12:00 70 23 179/90 93 L 02/02/23 11:50 85 24 179/90 95 02/02/23 11:40 80 11 L 179/90 98 02/02/23 11:30 71 15 180/86 93 L 02/02/23 11:20 80 22 179/90 93 L 02/02/23 11:10 71 9 L 179/90 96 02/02/23 11:00 76 22 179/90 94 L 02/02/23 10:50 67 19 185/101 95 02/02/23 10:49 67 16 185/101 96 02/02/23 08:10 181/94 Intake and Output 02/02/23 02/03/23 02/03/23 22:59 06:59 14:59 Other: Voiding Method Toilet Weight 99.79 kg Results 02/03/23 05:36 02/03/23 05:36 Cardiac Enzymes 02/02/23 02/02/23 02/02/23 Range/Units 07:26 07:26 12:43 AST 24 (14-36) U/L Troponin I <0.012 <0.012 (0.000-0.034) ng/mL 02/02/23 Range/Units 15:40 AST (14-36) U/L Troponin I <0.012 (0.000-0.034) ng/mL Coagulation 02/02/23 Range/Units 07:26 PT 11.0 (9.0-12.0) sec APTT 26.4 (22.0-30.0) sec CBC 02/02/23 Range/Units 07:26 WBC 7.1 (3.8-10.6) k/uL RBC 4.17 (3.80-5.40) m/uL Hgb 12.6 (11.4-16.0) gm/dL Hct 36.4 (34.0-46.0) % Plt Count 175 (150-450) k/uL Comprehensive Metabolic Panel 02/02/23 Range/Units 07:26 Sodium 142 (137-145) mmol/L Potassium 3.3 L (3.5-5.1) mmol/L Chloride 110 H (98-107) mmol/L Carbon Dioxide 25 (22-30) mmol/L BUN 11 (7-17) mg/dL Creatinine 0.78 (0.52-1.04) mg/dL Glucose 102 H (74-99) mg/dL Calcium 8.7 (8.4-10.2) mg/dL AST 24 (14-36) U/L ALT 33 (4-34) U/L Alkaline Phosphatase 82 (38-126) U/L Total Protein 6.4 (6.3-8.2) g/dL Albumin 3.9 (3.5-5.0) g/dL Current Medications Generic Name Dose Route Start Last Admin Trade Name Freq PRN Reason Stop Dose Admin Acetaminophen 650 mg 02/02/23 09:09 02/02/23 18:00 Acetaminophen Tab 325 Mg Tab PO 650 mg Q6HR PRN Administration Mild Pain or Fever > 100.5 Apixaban 5 mg 02/02/23 09:00 02/02/23 20:51 Apixaban 5 Mg Tab PO 5 mg BID ZONIA Administration Protocol Aspirin 81 mg 02/03/23 09:00 Aspirin 81 Mg PO DAILY ZONIA Atorvastatin Calcium 40 mg 02/02/23 21:00 02/02/23 20:51 Atorvastatin 40 Mg Tab PO 40 mg HS ZONIA Administration Buspirone HCl 15 mg 02/02/23 18:00 02/02/23 20:52 Buspirone Hcl 5 Mg Tab PO 15 mg QID ZONIA Administration Fluticasone Propionate 2 spray 02/02/23 21:00 02/02/23 22:10 Fluticasone 50mcg/[place] Nasal 16gm EA NOSTRIL 2 spray BID ZONIA Administration Furosemide 40 mg 02/02/23 09:00 02/02/23 20:50 Furosemide 10 Mg/Ml 4 Ml Vial IV 40 mg Q12HR ZONIA Administration Losartan Potassium 25 mg 02/03/23 09:00 Losartan 25 Mg Tab PO DAILY ZONIA Methocarbamol 500 mg 02/02/23 16:00 02/02/23 20:52 Methocarbamol 500 Mg Tab PO 500 mg TID ZONIA Administration Naloxone HCl 0.2 mg 02/02/23 09:09 Naloxone 0.4 Mg/Ml 1 Ml Vial IV Q2M PRN Opioid Reversal Nitroglycerin 0.5 inch 02/02/23 09:00 02/02/23 20:52 Nitroglycerin Oint 1 Inch/Gm Packet TOPICAL Not Given Q8HR ZONIA Ondansetron HCl 4 mg 02/02/23 09:09 Ondansetron 4 Mg/2 Ml Vial IVP Q8HR PRN Nausea And Vomiting Pantoprazole Sodium 40 mg 02/02/23 21:00 02/02/23 20:51 Pantoprazole 40 Mg Tablet PO 40 mg BID ZONIA Administration Quetiapine Fumarate 500 mg 02/02/23 21:00 02/02/23 20:51 Quetiapine 100 Mg Tab PO 500 mg HS ZONIA Administration Sertraline HCl 100 mg 02/03/23 09:00 Sertraline 100 Mg Tab PO DAILY ZONIA Intake and Output 02/02/23 02/03/23 02/03/23 22:59 06:59 14:59 Other: Voiding Method Toilet Weight 99.79 kg 02/02/23 07:26 02/02/23 07:26
--- NOTE | 2023-02-03 12:29 | CA ---
Dobutamine Stress Echocardiogram Report Radha Dodd Age: 57 Gender: F : 1965 Exam Date: 02/03/2023 09:22 Exam Location: [facility] Ordering Physician: Maria M Estrada Referring Physician: Sean CHRISTIANSON Gas Leak Tester: Karly Mcpherson RDCS Technologist: Ht (in): 65 Wt (lb): 220 Procedure CPT: Indication: CP ICD-9 Codes: Rhythm: Patient History: Atypical angina, Dyspnea/SOB, Family history, Hyperlipidemia, Smoker Cardiac Medications: Medications in past 24 hours: Contrast: Total Dose (mL): Stress Results Protocol: Dobutamine Peak Dose (???g/kg/min): 40 Duration (min:sec): Atropine:(mg) 0.5 Target HR: 139 Double Product: 53828 Resting HR: 87 Resting BP: 178 / 91 Peak HR: 138 Peak BP: 206 / 98 Max Predicted HR: 163 85 % Max Predicted HR Stress Summary: The patient's target heart rate was achieved. BP Response: Normal Reason for Termination: Exceeded target heart rate (85% max predicted) Cardiac Symptoms: Test terminated after reaching target heart rate (85% max predicted) ECG Analysis Resting EKG: Normal sinus rhythm, normal ECG Stress EKG: Greater than 1 mm of horizontal or downsloping ST depression - inferio-lateral leads Arrhythmia: Occasional PVCs Echo Analysis Base Echo Analysis: Normal resting echocardiogram. Low Echo Anaylsis: Normal wall thickening Peak Echo Analysis: Normal wall thickening and motion with no segmental wall motion abnormality Recovery Echo: Normal wall motion MEASUREMENTS (Male/Female) Normal Values CONCLUSIONS 1. Mildly abnormal electrocardiographic response to dobutamine infusion 2. Normal stress echocardiogram with no evidence of stress induced ischemia Dr. Ben Meyer MD (Electronically Signed) Final Date: 03 February 2023 12:28
[2023-02-03 14:06] VITALS: BP 144/85; PULSE 68; TEMP 98.4
--- NOTE | 2023-02-03 15:58 | P.DS ---
Providers Date of admission: 02/02/23 09:09 Expected date of discharge: 02/03/23 Attending physician: Jimenez Looney MD Consults: 02/02/23 09:09 Consult Physician Routine Consulting Provider: [facility] Consult Reason/Comments: chest pain, chf exacerbation, noncompliance with meds Do you want consulting provider notified?: Yes Primary care physician: Physician Nonstaff Hospital Course: Discharge Diagnosis: Diastolic CHF exacerbation in the setting of medical noncompliance Paroxysmal Atrial fibrillation Malignant hypertension Atypical Chest pain, ACS ruled out Nicotine dependence, half pack per day Hypokalemia Hospital Course: 57-year-old female with history of recently diagnosed diastolic CHF and atrial fibrillation presenting with worsening dyspnea and chest pain. In the ED, temperature was 98, pulse 97, respiratory rate 22, blood pressure 172/106, saturating at 96% on room air. CBC unremarkable, potassium 4.3, glucose under, troponin negative 2, proBNP 690. Chest x-ray shows mild CHF or pulmonary vascular congestion, independently interpreted. EKG shows normal sinus rhythm, independently interpreted. Patient admitted for CHF exacerbation. ACS ruled out, cardiology consulted. Dobutamine stress echo was negative. Patient likely in CHF exacerbation from medication noncompliance. Educated with regards to taking her medications and following up with specialist. Patient seen and examined at bedside. Vital signs reviewed and stable. General: nontoxic, no distress, appears at stated age Derm: warm, dry Head: atraumatic, normocephalic, symmetric Eyes: EOMI, no lid lag, anicteric sclera Mouth: no lip lesion, mucus membranes moist Cardiovascular: S1S2 reg, no murmur Lungs: CTA bilateral, no rhonchi, no rales , no accessory muscle use Abdominal: soft, nontender to palpation, no guarding, no appreciable organomegaly Ext: no gross muscle atrophy, no edema, no contractures Neuro: CN II-XI grossly intact, no focal neuro deficits Psych: Alert, oriented, appropriate affect A total of 36 minutes of time were spent preparing this complex discharge summary. Patient was discharged on 02/03/23 1511. Patient Condition at Discharge: Stable Plan - Discharge Summary Discharge Rx Participant: Yes New Discharge Prescriptions: New Potassium Chloride ER [K-Dur 20] 20 meq PO DAILY #60 tab Losartan [Cozaar] 25 mg PO DAILY #90 tab Apixaban [Eliquis] 5 mg PO BID #90 tab Furosemide [Lasix] 40 mg PO DAILY #60 tablet Continue Ondansetron Odt [Zofran ODT] 4 mg PO Q8H PRN PRN Reason: Nausea QUEtiapine [SEROquel] 500 mg PO HS Atorvastatin [Lipitor] 40 mg PO HS #90 tab methocarbamoL [Robaxin] 500 mg PO TID Sertraline [Zoloft] 100 mg PO DAILY Omeprazole [PriLOSEC] 20 mg PO BID Fluticasone Nasal [place] [Flonase Nasal [place]] 2 spr EA NOSTRIL BID Aspirin EC [Ecotrin Low Dose] 81 mg PO DAILY busPIRone HCL 15 mg PO QID Discontinued Ibuprofen [Motrin] 600 mg PO Q6H PRN PRN Reason: Pain Losartan [Cozaar] 12.5 mg PO DAILY #90 tab Discharge Medication List Aspirin EC [Ecotrin Low Dose] 81 mg PO DAILY 09/14/22 [History] Fluticasone Nasal [place] [Flonase Nasal [place]] 2 spr EA NOSTRIL BID 09/14/22 [History] Omeprazole [PriLOSEC] 20 mg PO BID 09/14/22 [History] Ondansetron Odt [Zofran ODT] 4 mg PO Q8H PRN 09/14/22 [History] QUEtiapine [SEROquel] 500 mg PO HS 09/14/22 [History] Sertraline [Zoloft] 100 mg PO DAILY 09/14/22 [History] busPIRone HCL 15 mg PO QID 09/14/22 [History] Atorvastatin [Lipitor] 40 mg PO HS #90 tab 09/18/22 [Rx] methocarbamoL [Robaxin] 500 mg PO TID 02/02/23 [History] Apixaban [Eliquis] 5 mg PO BID #90 tab 02/03/23 [Rx] Furosemide [Lasix] 40 mg PO DAILY #60 tablet 02/03/23 [Rx] Losartan [Cozaar] 25 mg PO DAILY #90 tab 02/03/23 [Rx] Potassium Chloride ER [K-Dur 20] 20 meq PO DAILY #60 tab 02/03/23 [Rx] Follow up Appointment(s)/Referral(s): Ben Meyer MD [STAFF PHYSICIAN] - 02/21/23 1:30 pm None,Stated [REFERRING] - 1-2 days Patient Instructions/Handouts: Heart Failure (DC), Chest Pain (DC) Activity/Diet/Wound Care/Special Instructions: Please see your PCP and excel analyst. Please take your medications. You will need repeat bloodwork in about 3 days. Discharge Disposition: HOME SELF-CARE
[2023-02-03] MEDS ORDERED: POTASSIUM CHLORIDE ER 20 MEQ TAB.ER PO SCH (16:00)
== END 2023-02-03 16:12 | disposition home or self-care (01) ==
LOC: EC 06:42 → 6NMEDSUR 09:09
PROVIDERS: ADMIT Student in an Organized Health Care Education/Training Program; ATTEND Student in an Organized Health Care Education/Training Program
DX: I11.0 Hypertensive heart disease with heart failure (principal); I50.32 Chronic diastolic (congestive) heart failure; Z91.148 Patient's other noncompliance with medication regimen for other reason; I48.0 Paroxysmal atrial fibrillation; R07.89 Other chest pain; F17.210 Nicotine dependence, cigarettes, uncomplicated; E87.6 Hypokalemia; E78.5 Hyperlipidemia, unspecified; F41.9 Anxiety disorder, unspecified; G47.00 Insomnia, unspecified; G89.29 Other chronic pain; M54.9 Dorsalgia, unspecified; M54.2 Cervicalgia; Z96.82 Presence of neurostimulator; Z90.49 Acquired absence of other specified parts of digestive tract; Z96.659 Presence of unspecified artificial knee joint; F31.9 Bipolar disorder, unspecified; Z82.49 Family history of ischemic heart disease and other diseases of the circulatory system; Z79.82 Long term (current) use of aspirin; Z79.899 Other long term (current) drug therapy
CPT/HCPCS: 96376; 96374; 96375; 99285; 36415; 93005; 93351; 83880; 80053; 80048; 83690; 83735 ×2; 84484; 85025 ×2; 85610; 85730; 71046; G0378 ×2; J1250; J0360; J1940 ×2; J2405 ×2; J1885

== ENCOUNTER → 2023-05-30 | Outpatient (CLI) | payer OTHER ==
[2023-05-30 20:22] LABS: ALT 26 U/L (8-44); AST 17 U/L (13-35); Albumin 4.5 g/dL (3.8-4.9); Albumin/Globulin Ratio 2.14 Ratio (1.60-3.17); Alkaline Phosphatase 79 U/L (41-126); Blood Urea Nitrogen 10.9 mg/dL (9.0-27.0); Calcium 10.1 mg/dL (8.7-10.3); Carbon Dioxide 27.4 mmol/L (21.6-31.8); Chloride 105 mmol/L (96-109); Chol/HDL Ratio 4.59 Ratio; Globulin 2.1 g/dL (1.6-3.3); Glucose 90 mg/dL (70-110); LDL Cholesterol,Calculated 124.4 mg/dL (0.0-131.0); Potassium 4.2 mmol/L (3.5-5.5); Sodium 144 mmol/L (135-145); Total Bilirubin 0.4 mg/dL (0.3-1.2); Total Protein 6.6 g/dL (6.2-8.2)
== END | disposition home or self-care (01) ==
LOC: LABWHC1 08:20
PROVIDERS: ATTEND Internal Medicine Interventional Cardiology
DX: E78.2 Mixed hyperlipidemia (principal)
CPT/HCPCS: 36415; 80053; 80061

== ENCOUNTER 2023-06-28 06:58 | Day surgery (SDC) | payer OTHER ==
[~2023-06-28 06:58] MED LIST: ALPRAZolam 0.25 MG TAB PO PRN; ALPRAZolam 0.5 MG TAB PO PRN; HEPARIN SODIUM,PORCINE (1 ML) 2,500 UNIT in SODIUM CHLORIDE 0.9% 250 ML IRRIGATION PRN; HEPARIN SODIUM,PORCINE 10,000 UNIT in SODIUM CHLORIDE 0.9% 1,000 ML IRRIGATION PRN; NITROGLYCERIN SL TABS 0.4 MG TAB SUBLINGUAL PRN; SODIUM CHLORIDE 0.9% 1,000 ML in EMPTY BAG 1 BAG IV SCH
[2023-06-28] MEDS ORDERED: ASPIRIN 325 MG TAB PO ONE (07:00)
[2023-06-28 07:55] LABS: Basophils # (A) 0.1 k/uL (0-0.2); Basophils % (A) 1 %; Eosinophils # (A) 0.2 k/uL (0-0.7); Eosinophils % (A) 2 %; HCT 39.7 % (34.0-46.0); Lymphocytes # (A) 2.1 k/uL (1.0-4.8); Lymphocytes % (A) 18 %; MCH 31.5 pg (25.0-35.0); MCHC 35.3 g/dL (31.0-37.0); MCV 89.2 fL (80.0-100.0); Mean Platelet Volume 9.3; Monocytes # (A) 0.4 k/uL (0-1.0); Monocytes % (A) 3 %; Neutrophils # (A) 8.6 k/uL (1.3-7.7); Neutrophils % (A) 75 %; Platelet Count 171 k/uL (150-450); RBC 4.45 m/uL (3.80-5.40); RDW 13.6 % (11.5-15.5); WBC 11.4 k/uL (3.8-10.6)
[2023-06-28 08:25] VITALS: RESP 18; TEMP 98.4
[2023-06-28] MEDS ORDERED: LIDOCAINE 1% INJ 10MG/ML (20 ML MDV) ONE (08:48)
[2023-06-28] MEDS ORDERED: VERAPAMIL 2.5 MG/ML 2 ML AMP ONE (08:48)
[2023-06-28] MEDS ORDERED: fentaNYL (PF) 50 MCG/ML 2 ML AMP ONE (08:53)
[2023-06-28] MEDS ORDERED: fentaNYL (PF) 50 MCG/1 ML VIAL IVP ONE (09:09)
[2023-06-28] MEDS ORDERED: LIDOCAINE 1% INJ 10MG/ML (30 ML VIAL-PF) SQ ONE (09:13)
[2023-06-28] MEDS ORDERED: MIDAZOLAM 2 MG/2 ML VIAL IVP ONE (09:13)
[2023-06-28] MEDS ORDERED: VERAPAMIL SYRINGE (5 MG/10 ML) INTRAARTER ONE (09:14)
[2023-06-28] MEDS ORDERED: HEPARIN SODIUM 1,000 UN/ML (10ML VL) ONE (09:28)
[2023-06-28] MEDS: HEPARIN SODIUM 1,000 UN/ML (10ML VL) IV ONE ×2 (09:30→09:40)
[2023-06-28] MEDS ORDERED: CLOPIDOGREL 75 MG TAB ONE (09:41)
[2023-06-28 09:43] LABS: O2 Sat Blood Gas 74.1 %
[2023-06-28] MEDS ORDERED: CLOPIDOGREL 75 MG TAB PO ONE (09:43)
[2023-06-28 09:44] LABS: O2 Sat Blood Gas 71.8 %
[2023-06-28 09:45] LABS: O2 Sat Blood Gas 94.1 %
[2023-06-28] MEDS ORDERED: IOPAMIDOL-370 100ML BTL INJ ONE ×2 (10:01→10:08)
[2023-06-28] MEDS ORDERED: ZOLPIDEM 5 MG TAB PO PRN (10:25)
[2023-06-28] MEDS ORDERED: RX INFO: IV CONTRAST WAS GIVEN 1 EACH MISC MISCELLANE PRN (10:25)
[2023-06-28] MEDS ORDERED: NITROGLYCERIN SL TABS 0.4 MG TAB SUBLINGUAL PRN (10:25)
[2023-06-28] MEDS ORDERED: ATROPINE SULFATE 0.1 MG/ML 10ML SYRINGE IV PRN (10:25)
[2023-06-28] MEDS ORDERED: MAG HYDROX/AL HYDROX/SIMETH 30 ML CUP PO PRN (10:25)
[2023-06-28] MEDS ORDERED: SODIUM CHLORIDE 0.9% 1,000 ML in EMPTY BAG 1 BAG IV SCH (10:30)
--- NOTE | 2023-06-28 10:41 | P.CARDCATH ---
Date of Procedure: 06/28/23 Description of Procedure: Cardiac Catheterization: The patient is a 58-year-old female with known history of hypertension, chronic tobacco use, hyperlipidemia who has been complaining of progressive chest discomfort and dyspnea on exertion. Recommendations were made regarding cardiac catheterization, the risks and the complications were discussed with the patient who is in full understanding and agreement. Procedure Description: Patient was brought to director of labor and delivery in fasting semi-sedated state after receiving Fentanyl and Benadryl achieiving moderate conscious sedated state. Using Xylocaine Anesthesia and modified Seldinger technique, a 6-Salvadorean sheath was introduced in the right radial artery . Subsequently the intravenous access in the right basilic vein was exchanged to a 6-Salvadorean sheath. Right heart catheterization was performed using a Luxor-Tom catheter, multiple samples were obtained and pressures were measured. Cardiac output by thermodilution was measured. Subsequently, selective coronary angiography was performed using a 5-Salvadorean 3.5 bend Nolan catheter. Multiple views of the coronary artery including hemiaxial views were obtained. The 6-Salvadorean pigtail catheter was used to cross the aortic valve and LVEDP was calculated. PCI: After removing the catheters 6-Salvadorean FR 4 guiding catheter was introduced and after cannulating the ostium of the RCA a 0.014 BMW J-wire was positioned distally subsequently 2.5 x 12 mm NC Treck was advanced and one inflation at 8 karine was done, after removing the balloon a [employer]at [place] eye IVUS catheter was introduced and imaging were obtained, subsequently a 4.0 x 23 mm Xience modesto point stent was deployed at 16 karine, repeat IVUS was performed. Subsequently a 4.0 x 20 mm NC Treck was advanced and one inflation at 10 karine was done. Repeat intravascular ultrasound imaging was performed subsequently the wire was removed and images were obtained. It revealed stable successful stenting. Following that, catheter and sheath were removed. Hemostasis was obtained with deployment of vascular band . There was no immediate complication. Patient was returned to room in stable condition. Of note, the patient received a total of 7000 units of intravenous heparin as well as intra-arterial verapamil. She received an oral loading dose of clopidogrel. Her ACT was followed. She had EKG changes and chest discomfort that resolved at the end of the procedure. Her venous sheath was removed and compression was placed to obtain hemostasis. Findings: Fluoroscopy: Calcifications of the coronary arteries was noted. Left main: This is a short sized vessel, bifurcating into LAD and left circumflex, left main has no high-grade stenosis LAD: This is a large size vessel, reaching to the apex him a tortuous in the proximal segment. The mid RCA has an area of stenosis of 50-70%, the rest of the vessel has no high-grade stenosis. Left circumflex: This is a nondominant vessel giving rise to 2 large obtuse marginal branch.. Social marginal branch have significant disease of about 80%, the rest of the vessel has no high-grade stenosis RCA: This is a large dominant vessel, bifurcating into PDA and PLV. The ostium of the RCA has about a 40% plaque. The mid RCA has a 99% stenosis. The PLV has a 40% plaque. There is of the vessel has no high-grade stenosis Left Ventriculogram: Not performed Hemodynamics: There was no gradient across the aortic valve, pulmonary artery saturation 74% right atrial saturation 72% arterial saturation 94%. Cardiac output by Sherry 7.30 L/m and by thermal 6.8 L/m . Pulmonary artery systolic of 30, diastolic of 12 with a mean of 14 mmHg, permanent Pre-wedge pressure A wave of 28 V-wave of 28 with a mean of 22 minutes of mercury, right ventricle systolic pressure 30 diastolic of 11, right atrium A wave of 12 V-wave of 10 with a mean of 8 to mercury, LVEDP was 20 mmHg Conclusion: 1. Calcified coronary arteries 2. Severe stenosis in the mid RCA 3. Severe stenosis in the OM 1 and 2 4. Moderate severe disease in the mid LAD 5. No pulmonary hypertension 6. Successful stenting of the mid RCA with reduction of stenosis from 99% to less than 5% with intravascular ultrasound imaging Recommendations: The patient will continue on aspirin and clopidogrel for 6 months without any interruption in addition to aggressive coronary risks modification, attempting to maintain LDL below 70 mg/dL. She'll be evaluated at a later time for staged angioplasty of the left circumflex reevaluation of the LAD. The findings and the recommendations were discussed with the patient and the family and they were in full understanding and agreement. Duration of sedation is 59 minutes.
[2023-06-28] MEDS ORDERED: NON FORMULARY DRUG (Buspirone Hcl [Buspirone Hcl] 15 MG Tablet) PO SCH (13:00)
[2023-06-28 14:09] VITALS: PULSE 70
[2023-06-28 14:34] VITALS: BP 152/69
[2023-06-28] MEDS ORDERED: PANTOPRAZOLE 40 MG TABLET PO SCH (17:30)
[2023-06-28] MEDS ORDERED: QUEtiapine 100 MG TAB PO SCH (21:00)
[2023-06-28] MEDS ORDERED: ATORVASTATIN 40 MG TAB PO SCH (21:00)
[2023-06-29] MEDS ORDERED: ASPIRIN 81 MG PO SCH (09:00)
[2023-06-29] MEDS ORDERED: LOSARTAN 25 MG TAB PO SCH (09:00)
[2023-06-29] MEDS ORDERED: SERTRALINE 100 MG TAB PO SCH (09:00)
[2023-06-29] MEDS ORDERED: ISOSORBIDE MONONITRATE ER 30 MG TAB.ER.24H PO SCH (09:00)
[2023-06-29] MEDS ORDERED: CLOPIDOGREL 75 MG TAB PO SCH (09:00)
== END 2023-06-28 14:25 | disposition home or self-care (01) ==
LOC: CATHCVL 06:58
PROVIDERS: ATTEND Internal Medicine Interventional Cardiology
DX: I25.10 Atherosclerotic heart disease of native coronary artery without angina pectoris (principal); I10 Essential (primary) hypertension; E78.5 Hyperlipidemia, unspecified; Z79.01 Long term (current) use of anticoagulants; Z79.899 Other long term (current) drug therapy; Z87.891 Personal history of nicotine dependence; Z90.49 Acquired absence of other specified parts of digestive tract; Z98.890 Other specified postprocedural states
CPT/HCPCS: 92978; 93460; 85018; 82810; 85025; C9600; C1769 ×3; C1894; C1751; C1753; C1874; C1725 ×2; J2250; J2001; J1644; Q9967; J3010

== ENCOUNTER → 2023-07-19 | Outpatient (CLI) | payer OTHER ==
[2023-07-19 15:21] LABS: Blood Urea Nitrogen 15.1 mg/dL (9.0-27.0); Carbon Dioxide 26.2 mmol/L (21.6-31.8); Chloride 104 mmol/L (96-109); Potassium 4.2 mmol/L (3.5-5.5); Sodium 143 mmol/L (135-145)
[2023-07-19 15:49] LABS: HCT 40.3 % (37.2-46.3); HGB 13.5 g/dL (12.0-15.0); MCH 30.2 pg (27.0-32.0); MCHC 33.5 g/dL (32.0-37.0); MCV 90.2 FL (80.0-97.0); Mean Platelet Volume 12.1 FL (9.5-12.2); NRBC Per 100 WBC 0 X 10*3/uL (0.00-0.01); Platelet Count 187 X 10*3/uL (140-440); RBC 4.47 X 10*6/uL (4.10-5.20); RDW 13.6 % (11.5-14.5); WBC 9.53 X 10*3/uL (4.50-10.00)
== END | disposition home or self-care (01) ==
LOC: LABPAT 08:51
PROVIDERS: ATTEND Internal Medicine Interventional Cardiology
DX: Z01.812 Encounter for preprocedural laboratory examination (principal); I25.118 Atherosclerotic heart disease of native coronary artery with other forms of angina pectoris
CPT/HCPCS: 36415; 80051; 82565; 84520; 85027

== ENCOUNTER 2023-08-10 05:35 | Day surgery (SDC) | payer OTHER ==
[2023-08-07 13:51] VITALS: BMI 35.7
[2023-08-10] MEDS ORDERED: SODIUM CHLORIDE 0.9% 1,000 ML in EMPTY BAG 1 BAG IV ONE (05:59)
[2023-08-10] MEDS ORDERED: ALPRAZolam 0.25 MG TAB PO PRN (05:59)
[2023-08-10] MEDS ORDERED: ALPRAZolam 0.5 MG TAB PO PRN (05:59)
[2023-08-10] MEDS ORDERED: NITROGLYCERIN SL TABS 0.4 MG TAB SUBLINGUAL PRN ×2 (05:59→08:30)
[2023-08-10] MEDS ORDERED: SODIUM CHLORIDE 0.9% 1,000 ML IV ONE (06:18)
[2023-08-10 06:37] VITALS: RESP 16; TEMP 98.1
[2023-08-10] MEDS ORDERED: ATORVASTATIN 80 MG TAB PO ONE (07:00)
[2023-08-10] MEDS ORDERED: HEPARIN SODIUM,PORCINE 10,000 UNIT in SODIUM CHLORIDE 0.9% 1,000 ML IRRIGATION PRN (07:00)
[2023-08-10] MEDS ORDERED: HEPARIN SODIUM,PORCINE (1 ML) 2,500 UNIT in SODIUM CHLORIDE 0.9% 250 ML IRRIGATION PRN (07:00)
[2023-08-10] MEDS ORDERED: ASPIRIN 325 MG TAB PO ONE (07:00)
[2023-08-10] MEDS ORDERED: VERAPAMIL 2.5 MG/ML 2 ML AMP ONE (07:15)
[2023-08-10] MEDS ORDERED: LIDOCAINE 1% INJ 10MG/ML (20 ML MDV) ONE (07:15)
[2023-08-10] MEDS ORDERED: fentaNYL (PF) 50 MCG/ML 2 ML AMP ONE (07:25)
[2023-08-10] MEDS ORDERED: fentaNYL (PF) 50 MCG/1 ML VIAL IVP ONE (07:28)
[2023-08-10] MEDS ORDERED: LIDOCAINE 1% INJ 10MG/ML (30 ML VIAL-PF) SQ ONE (07:32)
[2023-08-10] MEDS ORDERED: VERAPAMIL SYRINGE (5 MG/10 ML) INTRAARTER ONE (07:32)
[2023-08-10] MEDS: MIDAZOLAM 2 MG/2 ML VIAL IVP ONE ×2 (07:33→07:49)
[2023-08-10] MEDS ORDERED: HEPARIN SODIUM 1,000 UN/ML (10ML VL) ONE (07:36)
[2023-08-10] MEDS: HEPARIN SODIUM 1,000 UN/ML (10ML VL) IV ONE ×2 (07:37→07:44)
[2023-08-10] MEDS ORDERED: IOPAMIDOL-370 100ML BTL INJ ONE (07:44)
[2023-08-10] MEDS ORDERED: SODIUM CHLORIDE 0.9% 1,000 ML in EMPTY BAG 1 BAG IV SCH (08:30)
[2023-08-10] MEDS ORDERED: ATROPINE SULFATE 0.1 MG/ML 10ML SYRINGE IV PRN (08:30)
[2023-08-10] MEDS ORDERED: ZOLPIDEM 5 MG TAB PO PRN (08:30)
[2023-08-10] MEDS ORDERED: RX INFO: IV CONTRAST WAS GIVEN 1 EACH MISC MISCELLANE PRN (08:30)
[2023-08-10] MEDS ORDERED: MAG HYDROX/AL HYDROX/SIMETH 30 ML CUP PO PRN (08:30)
--- NOTE | 2023-08-10 08:49 | P.CARDCATH ---
Date of Procedure: 08/10/23 Description of Procedure: Cardiac Catheterization: The patient is a 58-year-old female with known history of hypertension, hyperlipidemia, chronic tobacco use who in June underwent stenting of the RCA and was found to have significant obstructive disease involving the left circumflex. She continues to have symptoms of dyspnea and chest discomfort. Recommendations were made regarding cardiac catheterization, the risks and the complications were discussed with the patient who is in full understanding and agreement. Procedure Description: Patient was brought to color laboratory technician in fasting semi-sedated state after receiving Fentanyl and Benadryl achieiving moderate conscious sedated state. Using Xylocaine Anesthesia and modified Seldinger technique, a 6-Burmese sheath was introduced in the right radial artery . Subsequently, selective coronary angiography was performed using a 5-Burmese 3.5 bend Nolan catheter and 6 Burmese CLS 3.5 guiding catheter. Multiple views of the coronary artery including hemiaxial views were obtained. PCI: Using the CLS guiding catheter and after cannulating the left main a 0.014 BMW J-wire was introduced into the system but could not be advanced in the distal OM because of tortuosity, at that point a 0.014 whisper J-wire was positioned distally and exchanged over a fine cross to a 0.014 BMW J-wire. Subsequently a 2.5 x 12 mm NC treck balloon was advanced and inflations at 8 karine were done. Subsequently a Uniris[employer] [place] eye IVUS catheter was introduced and imaging were obtained. After removing the catheter a 3.0 x 23 mm Xience modesto point stent was deployed at 16 karine, repeat IVUS imaging was performed and a 3.0 x 20 mm NC treck balloon was advanced and 1 inflation at 10 karine was done. Following that the wire was removed, images revealed stable successful stenting. Following that, catheter and sheath were removed. Hemostasis was obtained with deployment of vascular band . There was no immediate complication. Patient was returned to room in stable condition. Of note, the patient received a total of 7000 units of intravenous heparin as well as intra-arterial verapamil. She was continued on clopidogrel. She had chest discomfort and EKG changes with the inflations that resolved at the end of the procedure. Her ACT was monitored. Findings: Fluoroscopy: Calcification of the LAD and left circumflex was noted Left main: This is a short size vessel, bifurcating into LAD and left circumflex, left main has no evidence of high-grade stenosis LAD: This is a large size vessel, tortuous. The mid LAD has a 50% tubular tortuous stenosis the rest of the vessel has no high-grade stenosis Left circumflex: This is a nondominant large size vessel giving rise to 2 obtuse marginal branch. The first obtuse marginal branch has a 60% plaque, the proximal segment of the second obtuse marginal branch has a 90 to 95% stenosis. Intimal plaque at the ostium of the LAD and the bifurcation of the first obtuse marginal branch was noted. RCA: This is a large dominant vessel bifurcating into PDA and PLV. The ostium of the RCA has a 30% plaque. The stented segment is patent with no evidence of in-stent restenosis. There is a 40 to 50% plaque in the PLV. The rest of the vessel has no high-grade stenosis Left Ventriculogram: Not performed Conclusion: 1. Severe stenosis in the proximal segment of the OM 2 2. Moderate disease in the mid LAD 3. Patent stent in the RCA with intimal disease in the PLV and ostium of the RCA 4. Successful stenting of the OM 2 with reduction of stenosis from 90% to less than 5% with adjunctive IVUS imaging Recommendations: The patient will continue on aspirin and clopidogrel for 6 months without any interruption in addition to aggressive coronary risks modifications and smoking cessation. We will attempt to maintain her LDL below 70 mg/dL. The findings and the recommendations were discussed with the patient and the family and they were in full understanding and agreement. Duration of sedation is 48 minutes.
[2023-08-10 12:27] VITALS: BP 117/67; PULSE 75
[2023-08-10] MEDS ORDERED: methocarbamoL 500 MG TAB PO SCH (16:00)
[2023-08-10] MEDS ORDERED: busPIRone HCl 5 MG TAB PO SCH (18:00)
[2023-08-10] MEDS ORDERED: QUEtiapine 100 MG TAB PO SCH (21:00)
[2023-08-10] MEDS ORDERED: ATORVASTATIN 40 MG TAB PO SCH (21:00)
[2023-08-11] MEDS ORDERED: LOSARTAN 25 MG TAB PO SCH (09:00)
[2023-08-11] MEDS ORDERED: CLOPIDOGREL 75 MG TAB PO SCH (09:00)
[2023-08-11] MEDS ORDERED: SERTRALINE 100 MG TAB PO SCH (09:00)
[2023-08-11] MEDS ORDERED: ASPIRIN 81 MG PO SCH (09:00)
[2023-08-11] MEDS ORDERED: ISOSORBIDE MONONITRATE ER 30 MG TAB.ER.24H PO SCH (09:00)
== END 2023-08-10 12:28 | disposition home or self-care (01) ==
LOC: CATHCVL 05:35
PROVIDERS: ATTEND Internal Medicine Interventional Cardiology
DX: I25.10 Atherosclerotic heart disease of native coronary artery without angina pectoris (principal); I10 Essential (primary) hypertension; E78.5 Hyperlipidemia, unspecified; I34.0 Nonrheumatic mitral (valve) insufficiency; I48.0 Paroxysmal atrial fibrillation; Z95.5 Presence of coronary angioplasty implant and graft; Z79.899 Other long term (current) drug therapy
CPT/HCPCS: 92978; 93454; C9600; C1769 ×5; C1887 ×2; C1894; C1753; C1874; C1725 ×2; J2250; J2001; J1644; Q9967; J3010

== ENCOUNTER → 2023-12-11 | Outpatient (CLI) | payer OTHER ==
[2023-12-11 16:01] LABS: Blood Urea Nitrogen 8.5 mg/dL (9.0-27.0); Carbon Dioxide 24.7 mmol/L (21.6-31.8); Chloride 103 mmol/L (96-109); Potassium 3.6 mmol/L (3.5-5.5); Sodium 146 mmol/L (135-145)
[2023-12-11 16:02] LABS: HCT 39.6 % (37.2-46.3); HGB 13.5 g/dL (12.0-15.0); MCH 29.6 pg (27.0-32.0); MCHC 34.1 g/dL (32.0-37.0); MCV 86.8 FL (80.0-97.0); NRBC Per 100 WBC 0 X 10*3/uL (0.00-0.01); Platelet Count 196 X 10*3/uL (140-440); RBC 4.56 X 10*6/uL (4.10-5.20); RDW 14.1 % (11.5-14.5); WBC 10.54 X 10*3/uL (4.50-10.00)
== END | disposition home or self-care (01) ==
LOC: LABPAT 12:31
PROVIDERS: ATTEND Internal Medicine Interventional Cardiology
DX: Z01.812 Encounter for preprocedural laboratory examination (principal); R07.9 Chest pain, unspecified
CPT/HCPCS: 36415; 80051; 82565; 84520; 85027

== ENCOUNTER 2023-12-19 05:40 | Day surgery (SDC) | payer OTHER ==
[2023-12-19] MEDS ORDERED: ALPRAZolam 0.25 MG TAB PO PRN (05:58)
[2023-12-19] MEDS ORDERED: HEPARIN SODIUM,PORCINE 10,000 UNIT in SODIUM CHLORIDE 0.9% 1,000 ML IRRIGATION PRN (05:58)
[2023-12-19] MEDS ORDERED: ALPRAZolam 0.5 MG TAB PO PRN (05:58)
[2023-12-19] MEDS ORDERED: NITROGLYCERIN SL TABS 0.4 MG TAB SUBLINGUAL PRN ×2 (05:58→08:45)
[2023-12-19] MEDS ORDERED: HEPARIN SODIUM,PORCINE (1 ML) 2,500 UNIT in SODIUM CHLORIDE 0.9% 250 ML IRRIGATION PRN (05:58)
[2023-12-19] MEDS: IV FLUID CONTINUATION 1,000 ML IV ONE (06:25)
[2023-12-19] MEDS: SODIUM CHLORIDE 0.9% 1,000 ML in EMPTY BAG 1 BAG IV SCH ×2 (06:25→08:45)
[2023-12-19] MEDS ORDERED: LIDOCAINE 1% INJ 10MG/ML (20 ML MDV) ONE (07:13)
[2023-12-19] MEDS ORDERED: fentaNYL (PF) 50 MCG/ML 2 ML AMP ONE (07:14)
[2023-12-19] MEDS ORDERED: HEPARIN SODIUM 1,000 UN/ML (10ML VL) ONE (07:14)
[2023-12-19] MEDS ORDERED: VERAPAMIL 2.5 MG/ML 2 ML AMP ONE (07:14)
[2023-12-19] MEDS: fentaNYL (PF) 50 MCG/ML 2 ML AMP IVP ONE (07:36)
[2023-12-19] MEDS: LIDOCAINE 1% INJ 10MG/ML (20 ML MDV) SQ ONE (07:41)
[2023-12-19] MEDS: VERAPAMIL SYRINGE (5 MG/10 ML) INTRAARTER ONE (07:41)
[2023-12-19] MEDS: MIDAZOLAM 2 MG/2 ML VIAL IVP ONE ×2 (07:42→07:56)
[2023-12-19] MEDS: HEPARIN SODIUM 1,000 UN/ML (10ML VL) IVP ONE ×2 (07:43→07:51)
[2023-12-19] MEDS: IOPAMIDOL-370 100ML BTL INJ ONE ×3 (07:59→08:33)
[2023-12-19] MEDS ORDERED: ATROPINE SULFATE 0.1 MG/ML 10ML SYRINGE IV PRN (08:45)
[2023-12-19] MEDS ORDERED: MAG HYDROX/AL HYDROX/SIMETH 30 ML CUP PO PRN (08:45)
[2023-12-19] MEDS ORDERED: ZOLPIDEM 5 MG TAB PO PRN (08:45)
[2023-12-19] MEDS ORDERED: RX INFO: IV CONTRAST WAS GIVEN 1 EACH MISC MISCELLANE PRN (08:45)
--- NOTE | 2023-12-19 08:56 | P.CARDCATH ---
Date of Procedure: 12/19/23 Description of Procedure: Cardiac Catheterization: The patient is a 58-year-old female with a known history of chronic tobacco use, hypertension, hyperlipidemia, multivessel disease status post PCI who presented with symptoms of recurrent chest discomfort, similar to her symptoms prior to PCI. Recommendations were made regarding cardiac catheterization, the risks and the complications were discussed with the patient who is in full understanding and agreement. Procedure Description: Patient was brought to laboratory secretary in fasting semi-sedated state after receiving Fentanyl and Benadryl achieiving moderate conscious sedated state. Using Xylocaine Anesthesia and modified Seldinger technique, a 6-Nauruan sheath was introduced in the right radial artery . Subsequently, selective coronary angiography was performed using a 5-Nauruan 3.5 bend Nolan catheter. Multiple views of the coronary artery including hemiaxial views were obtained. The 5 Nauruan pigtail catheter was used to cross the aortic valve and LVEDP was calculated. PCI: After removing the catheters a 6 Nauruan CLS 3.5 guiding catheter was introduced and after cannulating the left main 0.014 BMW J-wire was positioned in the distal LAD. Subsequently a 2.5 x 12 mm trek balloon was advanced and 2 inflation at 8 karine were done. After removing the balloon a [place] eye IVUS catheter was introduced and images were obtained and revealed a distal segment of 3.0 mm in diameter with mild calcification. After removing the catheter a 3.0 x 23 mm Xience modesto point stent was advanced and deployed at 16 karine. Repeat IVUS was performed and subsequently a 3.25 x 15 mm NC trek balloon was advanced and multiple inflation at a maximum of 10 karine was done. After removing the wire images were obtained and revealed stable successful stenting. At that point the wire was introduced in the OM1 and the 2.5 x 12 mm trek balloon was advanced and 1 inflation at 8 karine was done. Subsequently IVUS images were obtained and revealed a noncalcified lesion with a diameter of 2.5 mm. After removing the catheter a 2.5 x 15 mm Xience modesto point stent was advanced and deployed at 14 akrine. After removing the wire images were obtained and revealed stable successful stenting. Following that, catheter and sheath were removed. Hemostasis was obtained with deployment of vascular band . There was no immediate complication. Patient was returned to room in stable condition. Of note, the patient received a total of 8000 units of intravenous heparin as we ll as intra-arterial verapamil. She was continued on her clopidogrel. Her ACT was monitored. She had chest discomfort and EKG changes with the inflations that resolved at the end of the procedure. Findings: Fluoroscopy: Calcification of the LAD proximally was noted. Left main: This is a short size vessel, bifurcating left circumflex and LAD, the left main has no high-grade stenosis LAD: This is a large size vessel, reaching to the apex, giving rise to 3 small diagonal branch. After the takeoff of the second diagonal branch there is a tubular lesion with a area of stenosis of 99%. There is another 60 to 70% plaque in the distal segment. Left circumflex: This is a nondominant vessel large in caliber, giving rise to 2 obtuse marginal branch. The first obtuse marginal branch has a 95% stenosis. There is a 60% plaque at the bifurcation. The stented segment in the second obtuse marginal branch has no evidence of in-stent restenosis RCA: This is a large dominant vessel, bifurcating distally to PDA and PLV. The ostium of the RCA has a 40 to 50% stenosis the mid segment has a stent that is patent with no evidence of in-stent restenosis the PLV has a 60% plaque with no progression compared to prior imaging Left Ventriculogram: Not performed Hemodynamics: There was no gradient across the aortic valve, LVEDP was 16-20 mmHg Conclusion: 1. Severe stenosis in the mid LAD 2. Severe stenosis in the OM1 3. Patent stent in the RCA and the OM 2 4. Moderate disease in the ostium of the RCA 5. Successful stenting of the mid LAD with reduction of stenosis from 99% to 0% with intravascular ultrasound imaging and RUSH-3 flow 6. Successful stenting of the OM1 with reduction of stenosis from 95% to 0% with disease involving the bifurcation with IVUS imaging and RUSH-3 flow Recommendations: The patient will continue on aspirin and clopidogrel for 1 week then she will stop the aspirin and continue on clopidogrel and anticoagulation. The importance of smoking cessation was discussed with the patient. Will continue aggressive coronary risk modification, attempting to maintain LDL below 70 mg/dL. The findings and the recommendations were discussed with the patient and the family and they were in full understanding and agreement. Duration of sedation is 56 minutes.
[2023-12-19] MEDS: ATORVASTATIN 80 MG TAB PO STA (11:45)
[2023-12-19] MEDS: ASPIRIN 325 MG TAB PO STA (11:45)
[2023-12-19] MEDS: methocarbamoL 500 MG TAB PO SCH (12:23)
[2023-12-19] MEDS: busPIRone HCl 5 MG TAB PO SCH (12:23)
[2023-12-19 12:54] VITALS: RESP 16
[2023-12-19] MEDS ORDERED: ONDANSETRON 4 MG/2 ML VIAL IVP PRN (16:18)
[2023-12-19] MEDS: ACETAMINOPHEN TAB 500 MG TAB PO PRN (16:26)
[2023-12-19] MEDS: PANTOPRAZOLE 40 MG TABLET PO SCH (18:28)
[2023-12-19] MEDS ORDERED: QUEtiapine 200 MG TAB PO SCH (21:00)
[2023-12-19] MEDS: ATORVASTATIN 40 MG TAB PO SCH (21:18)
[2023-12-19] MEDS: METOPROLOL TARTRATE 25 MG TAB PO SCH (21:18)
[2023-12-19] MEDS: QUEtiapine 100 MG TAB PO SCH (21:30)
[2023-12-20 03:24] VITALS: TEMP 98
[2023-12-20 06:38] LABS: African American GFR (CKD) >90 (>60 ml/min/1.73 sqM); Anion Gap 5 mmol/L; Blood Urea Nitrogen 10 mg/dL (7-17); Carbon Dioxide 26 mmol/L (22-30); Chloride 110 mmol/L (98-107); Glucose 99 mg/dL (74-99); Non-African American GFR(CKD) 78 (>60 ml/min/1.73 sqM); Potassium 3.1 mmol/L (3.5-5.1); Sodium 141 mmol/L (137-145)
--- NOTE | 2023-12-20 08:13 | P.PN ---
Subjective Progress Note Date: 12/20/23 PROGRESS NOTE The patient is a 58-year-old female with known history of coronary artery disease, chronic tobacco use, hyperlipidemia and paroxysmal atrial fibrillation who presented with symptoms of chest comfort. Underwent cardiac catheterization and was found to have patent stent in the OM 2 and RCA with significant disease in the mid LAD and OM1. She underwent stenting of both vessels. She had mod erate disease in the ostial RCA and distal RCA. She is doing well this morning. She has no chest discomfort. Her breathing is stable. She denies any dizziness or palpitations. Medications: Aspirin 81 mg daily, Lipitor 40 mg daily, Plavix 75 mg daily. Buspirone 15 mg 4 times a day, isosorbide mononitrate 30 mg daily. Methocarbamol 500 mg 3 times a day, metoprolol 25 mg twice a day. Protonix, Seroquel, Zoloft, PHYSICAL EXAMINATION: Blood pressure 139/79 heart rate 66 LUNGS: Clear to auscultation HEART: Regular rate and rhythm, S1, S2. No S3. Systolic ejection murmur ABDOMEN: Soft, nontender, no organomegaly EXTREMETIES: No edema, right radial pulse intact LAB: Potassium 3.1, BUN 10, creatinine 0.83. EKG revealed sinus mechanism with T wave inversion in the anterolateral leads. IMPRESSION: 1. Status post stenting of the LAD and OM1 2. Prior stenting of the RCA and OM 2 3. Chronic tobacco use 4. Hyperlipidemia PLAN: 1. Increase physical activity 2. Resume Eliquis 3. Smoking cessation 4. Follow-up in 1 week Objective - Vital Signs Vital signs: Vital Signs Temp 98.0 F 12/20/23 03:02 Pulse 66 12/20/23 03:02 Resp 16 12/20/23 03:02 BP 139/79 12/20/23 03:02 Pulse Ox 100 12/20/23 03:02 FiO2 Intake & Output 12/19/23 12/20/23 12/20/23 18:59 06:59 18:59 Intake Total 75 Balance 75 Weight 99.8 kg Intake: IV 75 Other: # Voids 1 3 - Labs CBC & Chem 7: 12/20/23 05:47 Labs: Abnormal Lab Results - Last 24 Hours (Table) 12/20/23 Range/Units 05:47 Potassium 3.1 L (3.5-5.1) mmol/L Chloride 110 H (98-107) mmol/L
[2023-12-20 08:31] VITALS: BP 146/85; PULSE 68
[2023-12-20] MEDS: SERTRALINE 100 MG TAB PO SCH (08:41)
[2023-12-20] MEDS: CLOPIDOGREL 75 MG TAB PO SCH (08:41)
[2023-12-20] MEDS: ASPIRIN 81 MG PO SCH (08:41)
[2023-12-20] MEDS: ISOSORBIDE MONONITRATE ER 30 MG TAB.ER.24H PO SCH (08:42)
[2023-12-20] MEDS: APIXABAN 5 MG TAB PO SCH (08:42)
== END 2023-12-20 09:41 | disposition home or self-care (01) ==
LOC: CATHCVL 05:40 → 6NMEDSUR 08:35 → CATHCVL 12-20 09:41
PROVIDERS: ATTEND Internal Medicine Interventional Cardiology
DX: I25.10 Atherosclerotic heart disease of native coronary artery without angina pectoris (principal); Z79.82 Long term (current) use of aspirin; Z79.02 Long term (current) use of antithrombotics/antiplatelets; I48.0 Paroxysmal atrial fibrillation; E78.5 Hyperlipidemia, unspecified
CPT/HCPCS: 93005; 92978; 92979; 93458; 80048; C9600; C1769 ×3; C1887; C1894; C1725 ×2; C1753; C1874 ×2; J2250; J2001; J3010; J1644; Q9967

== ENCOUNTER → 2024-03-22 | Outpatient (CLI) | payer OTHER ==
[2024-03-22 15:35] LABS: ALT 33 U/L (8-44); AST 20 U/L (13-35); Albumin 4.4 g/dL (3.8-4.9); Alkaline Phosphatase 62 U/L (41-126); Calcium 9.4 mg/dL (8.7-10.3); Carbon Dioxide 22.9 mmol/L (21.6-31.8); Chloride 106 mmol/L (96-109); Chol/HDL Ratio 5.32 Ratio; Globulin 2.1 g/dL (1.6-3.3); Glucose 93 mg/dL (70-110); LDL Cholesterol,Calculated 186.3 mg/dL (0.0-131.0); Potassium 3.8 mmol/L (3.5-5.5); Sodium 143 mmol/L (135-145); Total Bilirubin 0.3 mg/dL (0.3-1.2); Total Protein 6.5 g/dL (6.2-8.2)
[2024-03-22 15:38] LABS: NT-Pro-B-Type Natriuretic Pept 208 pg/mL (0-125)
== END | disposition home or self-care (01) ==
LOC: LABWHC1 08:45
PROVIDERS: ATTEND Internal Medicine Interventional Cardiology
DX: R60.0 Localized edema (principal); E78.2 Mixed hyperlipidemia
CPT/HCPCS: 36415; 80053; 80061; 83880

== ENCOUNTER 2024-09-06 21:11 | Observation (INO) | payer OTHER ==
--- NOTE | 2024-09-06 21:32 | ED ---
General Adult HPI - General Chief complaint: Nausea/Vomiting/Diarrhea Stated complaint: Vomiting,МАРИНА Time Seen by Provider: 09/06/24 21:16 Source: patient, RN notes reviewed, old records reviewed Mode of arrival: wheelchair Limitations: no limitations - History of Present Illness Initial comments: Patient is a 59-year-old female presents emergency department with nausea, vomiting. Has been ongoing for 1 day. Also has been dealing with URI symptoms, with a minimally productive cough for the last 2 or 3 days. Does have a positive sick contact, her who she lives with who was recently diagnosed with influenza. States she has not been able to hold any medications or food down today. Feels dehydrated. Denies diarrhea. Denies abdominal pain, denies chest pain. Endorses mild shortness of breath and vomiting. Endorses body ac hes. Endorses a very mild headache. Patient does have past medical history remarkable for A-fib, heart failure, hypertension, hyperlipidemia. Is on blood thinners. Presents for further evaluation at this time. - Related Data Home Medications Medication Instructions Recorded Confirmed Fluticasone Nasal [place] [Flonase 2 spr EA NOSTRIL BID 09/14/22 12/19/23 Nasal [place]] Omeprazole [PriLOSEC] 20 mg PO BID 09/14/22 12/19/23 Ondansetron Odt [Zofran ODT] 4 mg PO Q8H PRN 09/14/22 12/19/23 QUEtiapine [SEROquel] 500 mg PO HS 09/14/22 12/19/23 Sertraline [Zoloft] 200 mg PO DAILY 09/14/22 12/19/23 busPIRone HCL 15 mg PO QID 09/14/22 12/19/23 methocarbamoL [Robaxin] 500 mg PO TID 02/02/23 12/19/23 Furosemide [Lasix] 40 mg PO QAM 06/26/23 12/19/23 Ibuprofen [Motrin] 600 mg PO Q6HR PRN 06/26/23 12/19/23 Isosorbide Mononitrate [Isosorbide 30 mg PO QAM 06/26/23 12/19/23 Mononitrate ER] Metoprolol Tartrate 25 mg PO BID 12/15/23 12/19/23 Aspirin 81 mg PO DAILY 12/19/23 12/19/23 Previous Rx's Medication Instructions Recorded Atorvastatin [Lipitor] 40 mg PO HS #90 tab 09/18/22 Apixaban [Eliquis] 5 mg PO BID #90 tab 02/03/23 Clopidogrel [Plavix] 75 mg PO DAILY #90 tablet 06/28/23 Nitroglycerin Sl Tabs [Nitrostat] 0.4 mg SUBLINGUAL Q5M PRN #25 tab 06/28/23 Allergies Allergy/AdvReac Type Severity Reaction Status Date / Time No Known Allergies Allergy Verified 09/06/24 21:15 Review of Systems ROS Statement: Those systems with pertinent positive or pertinent negative responses have been documented in the HPI. Review of Systems: CONST: Denies fever EYES: Denies blurry vision ENT: Denies nasal congestion C/V: Denies Chest pain RESP: Denies shortness of breath GI: Endorses nausea, vomiting : Denies dysuria SKIN: Denies rash. MSK: Endorses generalized bodyaches NEURO: Endorses mild headache ROS Other: All systems not noted in ROS Statement are negative. Past Medical History Past Medical History: Atrial Fibrillation, Heart Failure, GERD/Reflux, Hyperlipidemia, Hypertension, Osteoarthritis (OA) Additional Past Medical History / Comment(s): Insomnia, past migraine, chronic back pain and neck pain and she has lumbar disk disease and she had lumbar surgery x4 and spine stimulator. cardiac cath with stent Jun 28, 2023. continued chest pain per pt. History of Any Multi-Drug Resistant Organisms: None Reported Past Surgical History: Cholecystectomy, Heart Catheterization With Stent, Joint Replacement, Orthopedic Surgery Additional Past Surgical History / Comment(s): - stent to the mid RCA,spinal stimulator implant in back, 2 cervical surgery, R rotator cuff repair, L knee replacement, right ankle fracture with surgery Past Anesthesia/Blood Transfusion Reactions: No Reported Reaction Date of Last Stent Placement:: 08/2023 Past Psychological History: Anxiety, Bipolar, Depression Smoking Status: Former smoker Past Alcohol Use History: None Reported Past Drug Use History: Marijuana - Past Family History Mother Family Medical History: Congestive Heart Failure (CHF) Father Family Medical History: Cancer Additional Family Medical History / Comment(s): lung and bone General Exam - General Exam Comments Initial Comments: General: Appears in mild distress secondary to feeling unwell. HEAD: Normal with no signs of head trauma. EYES: PERRLA, EOMI, conjunctiva normal, no discharge. ENT: Hearing grossly intact, normal oropharynx. Dry mucous membranes. RESPIRATORY: Clear breath sounds bilaterally. No wheezes, rales, or rhonchi. No hypoxia. No increased work of breathing. C/V: Regular rate and rhythm. S1 and S2 auscultated, no significant pitting edema, peripheral pulses 2+ and intact throughout ABD: Abd is soft, nontender, nondistended EXT: Normal range of motion, no obvious deformity SKIN: No rashes or lesions observed on exposed skin. NEURO: Alert and oriented x 4. No focal deficits. Limitations: no limitations Course Vital Signs 09/06/24 09/06/24 09/06/24 21:12 22:47 23:27 Temperature 99 F 99.2 F Pulse Rate 102 H 101 H Respiratory 18 18 Rate Blood Pressure 145/78 150/80 O2 Sat by Pulse 95 93 L Oximetry 09/07/24 01:25 Temperature 98.4 F Pulse Rate 91 Respiratory 18 Rate Blood Pressure 151/78 O2 Sat by Pulse 97 Oximetry Medical Decision Making - Medical Decision Making Was pt. sent in by a medical professional or institution (, PA, DESKTOP ADMINISTRATOR, urgent care, hospital, or long term...) When possible be specific @ -No Did you speak to anyone other than the patient for history (EMS, parent, family, police, friend...)? What history was obtained from this source @ -No Did you review nursing and triage notes (agree or disagree)? Why? @ -I reviewed and agree with nursing and triage notes Were old charts reviewed (outside hosp., previous admission, EMS record, old EKG, old radiological studies, urgent care reports/EKG's, long term records)? Report findings @ -Old charts reviewed including past medical history which includes A-fib, heart failure, hypertension, hyperlipidemia.Today's EKG compared with EKG from December 2023 with no significant change. Differential Diagnosis (chest pain, altered mental status, abdominal pain women, abdominal pain men, vaginal bleeding, weakness, fever, dyspnea, syncope, headache, dizziness, GI bleed, back pain, seizure, CVA, palpatations, mental health, musculoskeletal)? @ -COVID, flu, RSV, dehydration, electrolyte abnormality, pneumonia. This list is not all inclusive. EKG interpreted by me (3pts min.). @ -As above X-rays interpreted by me (1pt min.). @ -Chest x-ray reveals no obvious acute cardiopulmonary process. CT interpreted by me (1pt min.). @ -None done U/S interpreted by me (1pt. min.). @ -None done What testing was considered but not performed or refused? (CT, X-rays, U/S, labs)? Why? @ -None What meds were considered but not given or refused? Why? @ -None Did you discuss the management of the patient with other professionals (professionals i.e. , PA, DESKTOP ADMINISTRATOR, lab, RT, psych nurse, social services specialist, textile machinery sales representative, teacher, bank operations officer, patient case manager)? Give summary @ - I discussed the case with the admitting team, EFRAIN Schreiber of [facility] who is on for city call who accepted the admission. Was smoking cessation discussed for >3mins.? @ -No Was critical care preformed (if so, how long)? @ -No Were there social determinants of health that impacted care today? How? (Home lessness, low income, unemployed, alcoholism, drug addiction, transportation, low edu. Level, literacy, decrease access to med. care, retirement, rehab)? @ -No Was there de-escalation of care discussed even if they declined (Discuss DNR or withdrawal of care, Hospice)? DNR status @ -No What co-morbidities impacted this encounter? (DM, HTN, Smoking, COPD, CAD, Cancer, CVA, ARF, Chemo, Hep., AIDS, mental health diagnosis, sleep apnea, morbid obesity)? @ -None Was patient admitted / discharged? Hospital course, mention meds given and route, prescriptions, significant lab abnormalities, going to OR and other pertinent info. @ -Based on the patient's presentation and physical exam, presents emergency department complaining of what seems like viral syndrome type symptoms and dehydration. Patient does have a history of CHF but clinically appears dehydrated. No clinical symptoms of CHF exacerbation but she will be started on 1 L fluid bolus and we will continue to monitor hydration status. Will obtain general abdominal labs, viral swabs, screening EKG and chest x-ray. Patient will be administered in addition to IV fluids, IV Toradol, Zofran, Protonix as well as a dose of Tylenol. She was in agreement this plan. EKG showed no signs of acute ischemia.Chest x-ray reveals no obvious acute cardiopulmonary process. Laboratory studies remarkable for hypokalemia at 3.1, 3+ ketones in the urine likely secondary to dehydration and emesis, as well as being influenza A positive. I discussed results with the patient and she is feeling slightly improved but is still feeling ill. We will admit the patient for IV hydration, as well as initiate Tamiflu for therapy as symptoms started within the last 48 to 72 hours. Patient also given a dose of potassium. She was in agreement this plan. Vital signs are within acceptable limits at time of admission. I discussed the case with the admitting team, EFRAIN Schreiber of [facility] who is on for city call who accepted the admission. Undiagnosed new problem with uncertain prognosis? @ -No Drug Therapy requiring intensive monitoring for toxicity (Heparin, Nitro, Insulin, Cardizem)? @ -No Were any procedures done? @ -No Diagnosis/symptom? @ -Influenza A infection, intractable nausea and vomiting, hypokalemia, dehydration Acute, or Chronic, or Acute on Chronic? @ -Acute Uncomplicated (without systemic symptoms) or Complicated (systemic symptoms)? @ -Complicated Side effects of treatment? @ -None Exacerbation, Progression, or Severe Exacerbation] @ -No Poses a threat to life or bodily function? @ -Yes - Lab Data Result diagrams: 09/06/24 21:52 09/06/24 21:52 Lab Results 09/06/24 09/06/24 09/06/24 Range/Units 21:48 21:52 21:52 WBC 9.6 (3.8-10.6) k/uL RBC 5.01 (3.80-5.40) m/uL Hgb 14.5 (11.4-16.0) gm/dL Hct 42.3 (34.0-46.0) % MCV 84.4 (80.0-100.0) fL MCH 29.0 (25.0-35.0) pg MCHC 34.3 (31.0-37.0) g/dL RDW 14.1 (11.5-15.5) % Plt Count 151 (150-450) k/uL MPV 10.0 Neutrophils % 87 % Lymphocytes % 5 % Monocytes % 6 % Eosinophils % 1 % Basophils % 0 % Neutrophils # 8.4 H (1.3-7.7) k/uL Lymphocytes # 0.5 L (1.0-4.8) k/uL Monocytes # 0.6 (0-1.0) k/uL Eosinophils # 0.1 (0-0.7) k/uL Basophils # 0.0 (0-0.2) k/uL PT 12.2 (10.0-12.5) sec INR 1.1 (<1.2) APTT 27.8 (22.0-30.0) sec Sodium (137-145) mmol/L Potassium (3.5-5.1) mmol/L Chloride (98-107) mmol/L Carbon Dioxide (22-30) mmol/L Anion Gap mmol/L BUN (7-17) mg/dL Creatinine (0.52-1.04) mg/dL Est GFR (CKD-EPI)AfAm (>60 ml/min/1.73 sqM) Est GFR (CKD-EPI)NonAf (>60 ml/min/1.73 sqM) Glucose (74-99) mg/dL POC Glucose (mg/dL) 115 H (70-110) mg/dL POC Glu String Winding Machine Operator ID Anjelica Caballero Plasma Lactic Acid [place] (0.7-2.0) mmol/L Calcium (8.4-10.2) mg/dL Total Bilirubin (0.2-1.3) mg/dL AST (14-36) U/L ALT (4-34) U/L Alkaline Phosphatase (38-126) U/L Total Protein (6.3-8.2) g/dL Albumin (3.5-5.0) g/dL Amylase (30-110) U/L Lipase (23-300) U/L Urine Color Urine Appearance (Clear) Urine pH (5.0-8.0) Ur Specific [place] (1.001-1.035) Urine Protein (Negative) Urine Glucose (UA) (Negative) Urine Ketones (Negative) Urine Blood (Negative) Urine Nitrite (Negative) Urine Bilirubin (Negative) Urine Urobilinogen (<2.0) mg/dL Ur Leukocyte Esterase (Negative) Urine RBC (0-5) /hpf Urine WBC (0-5) /hpf Ur Squamous Epith Cells (0-4) /hpf Urine Bacteria (None) /hpf Urine Mucus (None) /hpf Influenza Type A (PCR) (Not Detectd) Influenza Type B (PCR) (Not Detectd) RSV (PCR) (Not Detectd) SARS-CoV-2 (PCR) (Not Detectd) 09/06/24 09/06/24 09/06/24 Range/Units 21:52 21:52 21:52 WBC (3.8-10.6) k/uL RBC (3.80-5.40) m/uL Hgb (11.4-16.0) gm/dL Hct (34.0-46.0) % MCV (80.0-100.0) fL MCH (25.0-35.0) pg MCHC (31.0-37.0) g/dL RDW (11.5-15.5) % Plt Count (150-450) k/uL MPV Neutrophils % % Lymphocytes % % Monocytes % % Eosinophils % % Basophils % % Neutrophils # (1.3-7.7) k/uL Lymphocytes # (1.0-4.8) k/uL Monocytes # (0-1.0) k/uL Eosinophils # (0-0.7) k/uL Basophils # (0-0.2) k/uL PT (10.0-12.5) sec INR (<1.2) APTT (22.0-30.0) sec Sodium 138 (137-145) mmol/L Potassium 3.1 L (3.5-5.1) mmol/L Chloride 100 (98-107) mmol/L Carbon Dioxide 22 (22-30) mmol/L Anion Gap 16 mmol/L BUN 14 (7-17) mg/dL Creatinine 0.87 (0.52-1.04) mg/dL Est GFR (CKD-EPI)AfAm 85 (>60 ml/min/1.73 sqM) Est GFR (CKD-EPI)NonAf 73 (>60 ml/min/1.73 sqM) Glucose 104 H (74-99) mg/dL POC Glucose (mg/dL) (70-110) mg/dL POC Glu String Winding Machine Operator ID Plasma Lactic Acid [place] 1.9 (0.7-2.0) mmol/L Calcium 9.8 (8.4-10.2) mg/dL Total Bilirubin 1.0 (0.2-1.3) mg/dL AST 40 H (14-36) U/L ALT 40 H (4-34) U/L Alkaline Phosphatase 80 (38-126) U/L Total Protein 7.7 (6.3-8.2) g/dL Albumin 4.9 (3.5-5.0) g/dL Amylase 59 (30-110) U/L Lipase 32 (23-300) U/L Urine Color Urine Appearance (Clear) Urine pH (5.0-8.0) Ur Specific [place] (1.001-1.035) Urine Protein (Negative) Urine Glucose (UA) (Negative) Urine Ketones (Negative) Urine Blood (Negative) Urine Nitrite (Negative) Urine Bilirubin (Negative) Urine Urobilinogen (<2.0) mg/dL Ur Leukocyte Esterase (Negative) Urine RBC (0-5) /hpf Urine WBC (0-5) /hpf Ur Squamous Epith Cells (0-4) /hpf Urine Bacteria (None) /hpf Urine Mucus (None) /hpf Influenza Type A (PCR) Detected A (Not Detectd) Influenza Type B (PCR) Not Detected (Not Detectd) RSV (PCR) Not Detected (Not Detectd) SARS-CoV-2 (PCR) Not Detected (Not Detectd) 09/06/24 Range/Units 22:38 WBC (3.8-10.6) k/uL RBC (3.80-5.40) m/uL Hgb (11.4-16.0) gm/dL Hct (34.0-46.0) % MCV (80.0-100.0) fL MCH (25.0-35.0) pg MCHC (31.0-37.0) g/dL RDW (11.5-15.5) % Plt Count (150-450) k/uL MPV Neutrophils % % Lymphocytes % % Monocytes % % Eosinophils % % Basophils % % Neutrophils # (1.3-7.7) k/uL Lymphocytes # (1.0-4.8) k/uL Monocytes # (0-1.0) k/uL Eosinophils # (0-0.7) k/uL Basophils # (0-0.2) k/uL PT (10.0-12.5) sec INR (<1.2) APTT (22.0-30.0) sec Sodium (137-145) mmol/L Potassium (3.5-5.1) mmol/L Chloride (98-107) mmol/L Carbon Dioxide (22-30) mmol/L Anion Gap mmol/L BUN (7-17) mg/dL Creatinine (0.52-1.04) mg/dL Est GFR (CKD-EPI)AfAm (>60 ml/min/1.73 sqM) Est GFR (CKD-EPI)NonAf (>60 ml/min/1.73 sqM) Glucose (74-99) mg/dL POC Glucose (mg/dL) (70-110) mg/dL POC Glu String Winding Machine Operator ID Plasma Lactic Acid [place] (0.7-2.0) mmol/L Calcium (8.4-10.2) mg/dL Total Bilirubin (0.2-1.3) mg/dL AST (14-36) U/L ALT (4-34) U/L Alkaline Phosphatase (38-126) U/L Total Protein (6.3-8.2) g/dL Albumin (3.5-5.0) g/dL Amylase (30-110) U/L Lipase (23-300) U/L Urine Color Yellow Urine Appearance Clear (Clear) Urine pH 7.0 (5.0-8.0) Ur Specific [place] 1.021 (1.001-1.035) Urine Protein 1+ H (Negative) Urine Glucose (UA) Negative (Negative) Urine Ketones 3+ H (Negative) Urine Blood Large H (Negative) Urine Nitrite Negative (Negative) Urine Bilirubin Negative (Negative) Urine Urobilinogen 2.0 (<2.0) mg/dL Ur Leukocyte Esterase Negative (Negative) Urine RBC 48 H (0-5) /hpf Urine WBC 2 (0-5) /hpf Ur Squamous Epith Cells 6 H (0-4) /hpf Urine Bacteria Rare H (None) /hpf Urine Mucus Occasional H (None) /hpf Influenza Type A (PCR) (Not Detectd) Influenza Type B (PCR) (Not Detectd) RSV (PCR) (Not Detectd) SARS-CoV-2 (PCR) (Not Detectd) - EKG Data -: EKG Interpreted by Me EKG Comments: 12-lead Electrocardiogram Interpretation Note EKG was reviewed and interpreted by myself. 12-lead ECG performed at 2141 is interpreted by me as revealing sinus tachycardia at a rate of 101 beats per minute. [place] is normal. GA interval is 144 ms, QRS duration is 96 ms, QTc is 431 ms. PVC present.. There were no obvious ST or T wave abnormalities to suggest myocardial ischemia or injury. Nonspecific ST segment and T wave abnormalities present. R wave progression across the precordium was satisfactory. By my interpretation this EKG is non-diagnostic for acute ischemia. Compared with EKG from December 2023 with no significant change. Disposition Clinical Impression: Dehydration, Influenza A, Nausea and vomiting, Hypokalemia Disposition: ADMITTED IP TO THIS HOSP Condition: Stable Time of Disposition: 23:15
[2024-09-06 21:50] LABS: Glucose,Whole Blood 115 mg/dL (70-110)
[2024-09-06] MEDS: ACETAMINOPHEN TAB 500 MG TAB PO STA (21:53)
[2024-09-06] MEDS: SODIUM CHLORIDE 0.9% 1,000 ML IV STA ×2 (21:54→23:48)
[2024-09-06] MEDS: KETOROLAC 15 MG/ML 1 ML VIAL IVP STA (21:55)
[2024-09-06] MEDS: ONDANSETRON 4 MG/2 ML VIAL IVP STA (21:57)
[2024-09-06] MEDS: PANTOPRAZOLE 40 MG/10 ML VIAL IVP STA (21:58)
[2024-09-06 22:15] LABS: ALT 40 U/L (4-34); AST 40 U/L (14-36); African American GFR (CKD) 85 (>60 ml/min/1.73 sqM); Albumin 4.9 g/dL (3.5-5.0); Alkaline Phosphatase 80 U/L (38-126); Amylase 59 U/L (30-110); Anion Gap 16 mmol/L; Blood Urea Nitrogen 14 mg/dL (7-17); Calcium 9.8 mg/dL (8.4-10.2); Carbon Dioxide 22 mmol/L (22-30); Chloride 100 mmol/L (98-107); Glucose 104 mg/dL (74-99); Lipase 32 U/L (23-300); Non-African American GFR(CKD) 73 (>60 ml/min/1.73 sqM); Potassium 3.1 mmol/L (3.5-5.1); Sodium 138 mmol/L (137-145); Total Protein 7.7 g/dL (6.3-8.2)
[2024-09-06 22:20] LABS: Basophils % (A) 0 %; Eosinophils # (A) 0.1 k/uL (0-0.7); Eosinophils % (A) 1 %; HCT 42.3 % (34.0-46.0); HGB 14.5 gm/dL (11.4-16.0); Lymphocytes # (A) 0.5 k/uL (1.0-4.8); Lymphocytes % (A) 5 %; MCHC 34.3 g/dL (31.0-37.0); MCV 84.4 fL (80.0-100.0); Monocytes # (A) 0.6 k/uL (0-1.0); Monocytes % (A) 6 %; Neutrophils # (A) 8.4 k/uL (1.3-7.7); Neutrophils % (A) 87 %; Platelet Count 151 k/uL (150-450); RBC 5.01 m/uL (3.80-5.40); RDW 14.1 % (11.5-15.5); WBC 9.6 k/uL (3.8-10.6)
[2024-09-06 22:22] LABS: INR 1.1 (<1.2); Partial Thromboplastin Time 27.8 sec (22.0-30.0); Prothrombin Time 12.2 sec (10.0-12.5)
[2024-09-06 22:36] LABS: Influenza A Detected (Not Detectd); Influenza B Not Detected (Not Detectd); RSV Not Detected (Not Detectd)
[2024-09-06 22:54] LABS: Appearance,Urine Clear (Clear); Bacteria,Urine Rare /hpf; Bilirubin,Urine Negative (Negative); Blood,Urine Large (Negative); Color,Urine Yellow; Glucose,Urine (UA) Negative (Negative); Ketones,Urine 3+ (Negative); Leukocyte Esterase,Urine Negative (Negative); Mucus,Urine Occasional /hpf; Nitrite,Urine Negative (Negative); Protein,Urine 1+ (Negative); RBC,Urine 48 /hpf (0-5); Specific Gravity,Urine 1.021 (1.001-1.035); Squamous Epithelial Cell,Urine 6 /hpf (0-4); WBC,Urine 2 /hpf (0-5)
--- NOTE | 2024-09-06 23:05 | XR ---
EXAM: XR Chest, 2 Views CLINICAL HISTORY: ITS.REASON XR Reason: abdominal pain TECHNIQUE: Frontal and lateral views of the chest. COMPARISON: 04/12/2023 FINDINGS: Lungs: No consolidation. No overt edema. Pleural space: No pleural effusion. No pneumothorax. Heart: Unremarkable. No cardiomegaly. Bones/joints: Unremarkable. No fracture or malalignment. IMPRESSION: No acute cardiopulmonary abnormality.
[2024-09-06] MEDS ORDERED: NALOXONE 0.4 MG/ML 1 ML VIAL IV PRN (23:14)
[2024-09-06] MEDS: SODIUM CHLORIDE 0.9% 500 ML 500 ML IV STA (23:28)
[2024-09-06] MEDS: POTASSIUM CHLORIDE ER 20 MEQ TAB.ER PO STA (23:30)
[2024-09-06] MEDS: OSELTAMIVIR 75 MG CAP PO SCH (23:31)
[2024-09-06] MEDS: diphenhydrAMINE 50 MG/ML 1 ML VIAL IVP STA (23:34)
[2024-09-07] MEDS: ONDANSETRON 4 MG/2 ML VIAL IVP PRN (03:45)
[2024-09-07] MEDS: MORPHINE SULFATE 4 MG/ML SYRINGE IVP STA (03:49)
[2024-09-07 05:18] LABS: ALT 38 U/L (4-34); AST 35 U/L (14-36); African American GFR (CKD) >90 (>60 ml/min/1.73 sqM); Albumin 4.2 g/dL (3.5-5.0); Alkaline Phosphatase 60 U/L (38-126); Anion Gap 11 mmol/L; Basophils % (A) 0 %; Blood Urea Nitrogen 14 mg/dL (7-17); Calcium 8.8 mg/dL (8.4-10.2); Carbon Dioxide 23 mmol/L (22-30); Chloride 104 mmol/L (98-107); Eosinophils % (A) 1 %; Glucose 104 mg/dL (74-99); HCT 39.5 % (34.0-46.0); HGB 12.9 gm/dL (11.4-16.0); Lymphocytes # (A) 0.6 k/uL (1.0-4.8); Lymphocytes % (A) 7 %; MCH 28.3 pg (25.0-35.0); MCHC 32.6 g/dL (31.0-37.0); MCV 86.7 fL (80.0-100.0); Mean Platelet Volume 9.6; Monocytes # (A) 0.6 k/uL (0-1.0); Monocytes % (A) 7 %; Neutrophils # (A) 7.3 k/uL (1.3-7.7); Neutrophils % (A) 84 %; Non-African American GFR(CKD) >90 (>60 ml/min/1.73 sqM); Platelet Count 124 k/uL (150-450); RBC 4.55 m/uL (3.80-5.40); RDW 13.9 % (11.5-15.5); Sodium 138 mmol/L (137-145); Total Bilirubin 0.7 mg/dL (0.2-1.3); Total Protein 6.7 g/dL (6.3-8.2); WBC 8.6 k/uL (3.8-10.6)
[2024-09-07] MEDS: POTASSIUM CHLORIDE ER 20 MEQ TAB.ER PO STA (05:44)
[2024-09-07] MEDS: ACETAMINOPHEN TAB 325 MG TAB PO PRN (08:48)
[2024-09-07] MEDS ORDERED: METOCLOPRAMIDE 5 MG/ML 2 ML VIAL IVP PRN (12:02)
[2024-09-07] MEDS: busPIRone HCl 5 MG TAB PO SCH (15:44)
[2024-09-07] MEDS: hydrALAZINE HCL 20 MG/ML 1 ML VIAL IVP PRN (18:11)
[2024-09-07] MEDS: APIXABAN 5 MG TAB PO SCH (20:53)
[2024-09-07] MEDS: METOPROLOL TARTRATE 25 MG TAB PO SCH (20:54)
[2024-09-07] MEDS: FLUTICASONE NASAL 50MCG/SPRAY 16GM BTL EA NOSTRIL SCH (20:54)
[2024-09-07] MEDS: QUEtiapine 100 MG TAB PO SCH (20:55)
[2024-09-08] MEDS: ISOSORBIDE MONONITRATE ER 30 MG TAB.ER.24H PO SCH (08:04)
[2024-09-08] MEDS: CLOPIDOGREL 75 MG TAB PO SCH (08:04)
[2024-09-08 09:51] LABS: Basophils # (A) 0.02 X 10*3/uL (0.00-0.10); Basophils % (A) 0.3 %; Eosinophils # (A) 0 X 10*3/uL (0.04-0.35); Eosinophils % (A) 0 %; HCT 44.2 % (37.2-46.3); HGB 15.1 g/dL (12.0-15.0); Lymphocytes # (A) 1.49 X 10*3/uL (0.90-5.00); Lymphocytes % (A) 22.4 %; MCHC 34.2 g/dL (32.0-37.0); Mean Platelet Volume 12.7 FL (9.5-12.2); Monocytes # (A) 0.83 X 10*3/uL (0.20-1.00); Monocytes % (A) 12.5 %; NRBC Per 100 WBC 0 X 10*3/uL (0.00-0.01); Neutrophils % (A) 64.5 %; Platelet Count 146 X 10*3/uL (140-440); RDW 14.2 % (11.5-14.5); WBC 6.66 X 10*3/uL (4.50-10.00)
[2024-09-08 09:56] LABS: BUN/Creat Ratio 13.11 Ratio (12.00-20.00); Blood Urea Nitrogen 11.8 mg/dL (9.0-27.0); Calcium 9.3 mg/dL (8.7-10.3); Carbon Dioxide 21.3 mmol/L (21.6-31.8); Chloride 105 mmol/L (96-109); Glucose 101 mg/dL (70-110); Potassium 3.5 mmol/L (3.5-5.5); Sodium 144 mmol/L (135-145)
[2024-09-08] MEDS: hydrOXYzine pamoate 25 MG CAP PO PRN (12:09)
--- NOTE | 2024-09-08 17:37 | P.HPIM ---
History of Present Illness H&P Date: 09/07/24 Chief Complaint: Nausea/vomiting/diarrhea 59-year-old female, history of atrial fibrillation, hypertension, hyperlipidemia, CHF, osteoarthritis, presents emergency department with nausea, vomiting. Has been ongoing for 1 day. Also has been dealing with URI symptoms, with a minimally productive cough for the last 2 or 3 days. Does have a positive sick contact, her who she lives with who was recently diagnosed with influenza. States she has not been able to hold any medications or food down today. Feels dehydrated. Denies diarrhea. Denies abdominal pain, denies chest pain. Endorses mild shortness of breath and vomiting. Endorses body aches. Endorses a very mild headache. Patient does have past medical history remarkable for A-fib, heart failure, hypertension, hyperlipidemia. Is on blood thinners. Presents for further evaluation at this time. Blood work completed in ED reveals a WBC of 9.6, hemoglobin of 14.5 and platelet count of 151, sodium 138, potassium 3.1, BUNs/creatinine 14/0.87 and blood glucose of 104, lactic acid of 1.9, Viral screen came back positive for influenza A Chest x-ray is negative for any acute process Review of Systems REVIEW OF SYSTEMS: CONSTITUTIONAL: No fever, no malaise, no fatigue. HEENT: No recent visual problems or hearing problems. Denied any sore throat. CARDIOVASCULAR: No chest pain, orthopnea, PND, no palpitations, no syncope. PULMONARY: No shortness of breath, no cough, no hemoptysis. GASTROINTESTINAL: No diarrhea, no nausea, no vomiting, no abdominal pain. NEUROLOGICAL: No headaches, no weakness, no numbness. HEMATOLOGICAL: Denies any bleeding or petechiae. GENITOURINARY: Denies any burning micturition, frequency, or urgency. MUSCULOSKELETAL/RHEUMATOLOGICAL: Denies any joint pain, swelling, or any muscle pain. ENDOCRINE: Denies any polyuria or polydipsia. The rest of the 14-point review of systems is negative. Past Medical History Past Medical History: Atrial Fibrillation, Heart Failure, GERD/Reflux, Hype rlipidemia, Hypertension, Osteoarthritis (OA) Additional Past Medical History / Comment(s): Insomnia, past migraine, chronic back pain and neck pain and she has lumbar disk disease and she had lumbar surgery x4 and spine stimulator. cardiac cath with stent Jun 28, 2023. continued chest pain per pt. History of Any Multi-Drug Resistant Organisms: None Reported Past Surgical History: Cholecystectomy, Heart Catheterization With Stent, Joint Replacement, Orthopedic Surgery Additional Past Surgical History / Comment(s): - stent to the mid RCA,spinal stimulator implant in back, 2 cervical surgery, R rotator cuff repair, L knee replacement, right ankle fracture with surgery Past Anesthesia/Blood Transfusion Reactions: No Reported Reaction Date of Last Stent Placement:: 08/2023 Past Psychological History: Anxiety, Bipolar, Depression Smoking Status: Former smoker Past Alcohol Use History: None Reported Past Drug Use History: Marijuana - Past Family History Mother Family Medical History: Congestive Heart Failure (CHF) Father Family Medical History: Cancer Additional Family Medical History / Comment(s): lung and bone Medications and Allergies Home Medications Medication Instructions Recorded Confirmed Type Fluticasone Nasal [place] [Flonase 2 spr EA NOSTRIL BID 09/14/22 09/07/24 History Nasal [place]] Omeprazole [PriLOSEC] 20 mg PO BID 09/14/22 09/07/24 History Ondansetron Odt [Zofran ODT] 4 mg PO Q8H PRN 09/14/22 09/07/24 History QUEtiapine [SEROquel] 500 mg PO HS 09/14/22 09/07/24 History busPIRone HCL 15 mg PO TID 09/14/22 09/07/24 History Atorvastatin [Lipitor] 40 mg PO HS #90 tab 09/18/22 09/07/24 Rx methocarbamoL [Robaxin] 500 mg PO TID PRN 02/02/23 09/07/24 History Apixaban [Eliquis] 5 mg PO BID #90 tab 02/03/23 09/07/24 Rx Furosemide [Lasix] 40 mg PO DAILY 06/26/23 09/07/24 History Ibuprofen [Motrin] 600 mg PO Q6HR PRN 06/26/23 09/07/24 History Isosorbide Mononitrate [Isosorbide 30 mg PO DAILY 06/26/23 09/07/24 History Mononitrate ER] Clopidogrel [Plavix] 75 mg PO DAILY #90 tablet 06/28/23 09/07/24 Rx Nitroglycerin Sl Tabs [Nitrostat] 0.4 mg SUBLINGUAL Q5M PRN #25 tab 06/28/23 09/07/24 Rx Metoprolol Tartrate 25 mg PO BID 12/15/23 09/07/24 History Ezetimibe [Zetia] 10 mg PO DAILY 09/07/24 09/07/24 History Semaglutide [Wegovy] 0.5 mg SQ WE 09/07/24 09/07/24 History Allergies Allergy/AdvReac Type Severity Reaction Status Date / Time No Known Allergies Allergy Verified 09/07/24 09:41 Physical Exam Vitals: Vital Signs Temp Pulse Pulse Resp BP BP Pulse Ox 09/07/24 09:59 98.9 F 89 18 152/80 96 09/07/24 07:00 99.4 F 09/07/24 05:50 98.9 F 09/07/24 05:43 88 16 155/87 96 09/07/24 01:25 98.4 F 91 18 151/78 97 09/06/24 23:27 99.2 F 09/06/24 22:47 101 H 18 150/80 93 L 09/06/24 21:12 99 F 102 H 18 145/78 95 Intake and Output 09/06/24 09/07/24 09/07/24 22:59 06:59 14:59 Other: Weight 102.058 kg General: Appears in mild distress secondary to feeling unwell. HEAD: Normal with no signs of head trauma. EYES: PERRLA, EOMI, conjunctiva normal, no discharge. ENT: Hearing grossly intact, normal oropharynx. Dry mucous membranes. RESPIRATORY: Clear breath sounds bilaterally. No wheezes, rales, or rhonchi. N o hypoxia. No increased work of breathing. C/V: Regular rate and rhythm. S1 and S2 auscultated, no significant pitting edema, peripheral pulses 2+ and intact throughout ABD: Abd is soft, nontender, nondistended EXT: Normal range of motion, no obvious deformity SKIN: No rashes or lesions observed on exposed skin. NEURO: Alert and oriented x 4. No focal deficits. Results CBC & Chem 7: 09/08/24 04:16 09/08/24 04:16 Labs: Abnormal Lab Results - Last 24 Hours (Table) 09/06/24 09/06/24 09/06/24 Range/Units 21:48 21:52 21:52 Plt Count (150-450) k/uL Neutrophils # 8.4 H (1.3-7.7) k/uL Lymphocytes # 0.5 L (1.0-4.8) k/uL Potassium 3.1 L (3.5-5.1) mmol/L Glucose 104 H (74-99) mg/dL POC Glucose (mg/dL) 115 H (70-110) mg/dL AST 40 H (14-36) U/L ALT 40 H (4-34) U/L Urine Protein (Negative) Urine Ketones (Negative) Urine Blood (Negative) Urine RBC (0-5) /hpf Ur Squamous Epith Cells (0-4) /hpf Urine Bacteria (None) /hpf Urine Mucus (None) /hpf Influenza Type A (PCR) (Not Detectd) 09/06/24 09/06/24 09/07/24 Range/Units 21:52 22:38 04:42 Plt Count 124 L (150-450) k/uL Neutrophils # (1.3-7.7) k/uL Lymphocytes # 0.6 L (1.0-4.8) k/uL Potassium (3.5-5.1) mmol/L Glucose (74-99) mg/dL POC Glucose (mg/dL) (70-110) mg/dL AST (14-36) U/L ALT (4-34) U/L Urine Protein 1+ H (Negative) Urine Ketones 3+ H (Negative) Urine Blood Large H (Negative) Urine RBC 48 H (0-5) /hpf Ur Squamous Epith Cells 6 H (0-4) /hpf Urine Bacteria Rare H (None) /hpf Urine Mucus Occasional H (None) /hpf Influenza Type A (PCR) Detected A (Not Detectd) 09/07/24 Range/Units 04:42 Plt Count (150-450) k/uL Neutrophils # (1.3-7.7) k/uL Lymphocytes # (1.0-4.8) k/uL Potassium 3.0 L (3.5-5.1) mmol/L Glucose 104 H (74-99) mg/dL POC Glucose (mg/dL) (70-110) mg/dL AST (14-36) U/L ALT 38 H (4-34) U/L Urine Protein (Negative) Urine Ketones (Negative) Urine Blood (Negative) Urine RBC (0-5) /hpf Ur Squamous Epith Cells (0-4) /hpf Urine Bacteria (None) /hpf Urine Mucus (None) /hpf Influenza Type A (PCR) (Not Detectd) Assessment and Plan Assessment: 1. Influenza A infection -Patient has been placed on Tamiflu 75 mg every 12 hours x 5 days -Continue with symptomatic treatment 2. Intractable nausea and vomiting; likely viral -Patient has been placed on a clear liquid diet with plans for advance as tolerated -IV fluids in form of normal saline at a rate of 130 cc an hour -Symptomatic treatment with Zofran 4 mg IV every 8 hours for nausea and vomiting 3. Hypertension; metoprolol 25 mg twice daily; Imdur 30 mg daily 4. Coronary artery disease; stable on aspirin, Plavix 75 mg daily, metoprolol 25 mg twice daily, Imdur 30 mg daily 5. Atrial fibrillation; rate controlled with metoprolol; patient is anticoagulated with Eliquis 5 mg twice daily 6. Anxiety/depression; BuSpar 15 mg 3 times daily; Seroquel 500 mg p.o. nightly DVT prophylaxis; SCDs/subcu heparin CODE STATUS; full code
--- NOTE | 2024-09-08 17:38 | P.PN ---
Subjective Progress Note Date: 09/08/24 59-year-old female, history of atrial fibrillation, hypertension, hyperlipidemia, CHF, osteoarthritis, presents emergency department with nausea, vomiting. Has been ongoing for 1 day. Also has been dealing with URI symptoms, with a minimally productive cough for the last 2 or 3 days. Does have a positi ve sick contact, her who she lives with who was recently diagnosed with influenza. States she has not been able to hold any medications or food down today. Feels dehydrated. Denies diarrhea. Denies abdominal pain, denies chest pain. Endorses mild shortness of breath and vomiting. Endorses body aches. Endorses a very mild headache. Patient does have past medical history remarkable for A-fib, heart failure, hypertension, hyperlipidemia. Is on blood thinners. Presents for further evaluation at this time. Blood work completed in ED reveals a WBC of 9.6, hemoglobin of 14.5 and platelet count of 151, sodium 138, potassium 3.1, BUNs/creatinine 14/0.87 and blood glucose of 104, lactic acid of 1.9, Viral screen came back positive for influenza A Chest x-ray is negative for any acute process --Patient continues to report excessive weakness; reports she has an older who is also sick with influenza and is not able to care for patient -Plan for discharge in next 24 hours Objective - Vital Signs Vital signs: Vital Signs Temp 97.5 F L 09/08/24 07:00 Pulse 77 09/08/24 07:00 Resp 16 09/08/24 07:58 BP 121/84 09/08/24 07:00 Pulse Ox 96 09/08/24 07:00 FiO2 Intake & Output 09/07/24 09/08/24 09/08/24 18:59 06:59 18:59 Output Total 600 Balance -600 Weight 102.058 kg Output: Urine 600 Other: # Voids 1 1 # Bowel Movements 1 - Exam General: Appears in mild distress secondary to feeling unwell. HEAD: Normal with no signs of head trauma. EYES: PERRLA, EOMI, conjunctiva normal, no discharge. ENT: Hearing grossly intact, normal oropharynx. Dry mucous membranes. RESPIRATORY: Clear breath sounds bilaterally. No wheezes, rales, or rhonchi. No hypoxia. No increased work of breathing. C/V: Regular rate and rhythm. S1 and S2 auscultated, no significant pitting edema, peripheral pulses 2+ and intact throughout ABD: Abd is soft, nontender, nondistended EXT: Normal range of motion, no obvious deformity SKIN: No rashes or lesions observed on exposed skin. NEURO: Alert and oriented x 4. No focal deficits. - Labs CBC & Chem 7: 09/08/24 04:16 09/08/24 04:16 Labs: Abnormal Lab Results - Last 24 Hours (Table) 09/07/24 09/08/24 09/08/24 Range/Units 11:33 04:16 04:16 Hgb 15.1 H (12.0-15.0) g/dL MPV 12.7 H (9.5-12.2) FL Eosinophils # 0 L (0.04-0.35) X 10*3/uL Potassium 3.1 L (3.5-5.1) mmol/L Carbon Dioxide 21.3 L (21.6-31.8) mmol/L Anion Gap 17.70 H (4.00-12.00) mmol/L Assessment and Plan Assessment: 1. Influenza A infection -Patient has been placed on Tamiflu 75 mg every 12 hours x 5 days -Continue with symptomatic treatment 2. Intractable nausea and vomiting; likely viral -Patient has been placed on a clear liquid diet with plans for advance as tolerated -IV fluids in form of normal saline at a rate of 130 cc an hour -Symptomatic treatment with Zofran 4 mg IV every 8 hours for nausea and vomiting 3. Hypertension; metoprolol 25 mg twice daily; Imdur 30 mg daily 4. Coronary artery disease; stable on aspirin, Plavix 75 mg daily, metoprolol 25 mg twice daily, Imdur 30 mg daily 5. Atrial fibrillation; rate controlled with metoprolol; patient is anticoagulated with Eliquis 5 mg twice daily 6. Anxiety/depression; BuSpar 15 mg 3 times daily; Seroquel 500 mg p.o. nightly DVT prophylaxis; SCDs/subcu heparin CODE STATUS; full code
[2024-09-09 08:21] VITALS: BP 120/79; PULSE 90; RESP 16; TEMP 97.9
[2024-09-09] MEDS: POTASSIUM CHLORIDE ER 20 MEQ TAB.ER PO STA (11:35)
--- NOTE | 2024-09-12 19:09 | P.DS ---
Providers Date of admission: 09/06/24 23:14 Attending physician: Shelli Hobbs Primary care physician: Physician Nonstaff Hospital Course: Final Diagnosis Acute influenza A infection Intractable nausea and vomiting from viral infection Rate controlled atrial fibrillation anticoagulated with eliquis. Hypertension Coronary artery disease Anxiety/depression Obesity Discharge Disposition Patient is stable for discharge home. Patient is tolerating oral intake some what. Nausea has significantly improved. Patient will be discharged home to complete the 5 day course of oral tamiflu; She has 2 days left. Hospital Course 59-year-old female, history of atrial fibrillation, hypertension, hyperlipidemia, CHF, osteoarthritis, presents emergency department with nausea, vomiting. Has been ongoing for 1 day. Also has been dealing with URI symptoms, with a minimally productive cough for the last 2 or 3 days. Does have a positive sick contact, her who she lives with who was recently diagnosed with influenza. States she has not been able to hold any medications or food down today. Feels dehydrated. Denies diarrhea. Denies abdominal pain, denies chest pain. Endorses mild shortness of breath and vomiting. Endorses body aches. Endorses a very mild headache. Blood work completed in ED reveals a WBC of 9.6, hemoglobin of 14.5 and platelet count of 151, sodium 138, potassium 3.1, BUNs/creatinine 14/0.87 and blood glucose of 104, lactic acid of 1.9. Viral screen came back positive for influenza A. Chest x-ray is negative for any acute process. Patient was admitted in observation. Patient was started on oral tamiflu twice daily. Clinicaly patient improved. Has been up ambulating. Reporting improved shortness of breath. Patient will be discharged home. White blood cell count remains stable. LFTs have improved. Please see medication reconciliation for a list of current medications. Thank you for allowing us to participate in the care of this patient. The impression and plan of care has been dictated by Jenna Villanueva Nurse Practitioner as directed. Dr. Tarik MD I have performed a history and physical examination and medical decision making of this patient, discussed the same with the dictator, and agree with the dictators assessment and plan as written, documented as a scribe. Based on total visit time, I have performed more than 50% of this visit. Patient Condition at Discharge: Stable Plan - Discharge Summary Discharge Rx Participant: No New Discharge Prescriptions: New Oseltamivir [Tamiflu] 75 mg PO Q12HR 2 Days #4 cap Continue QUEtiapine [SEROquel] 500 mg PO HS Atorvastatin [Lipitor] 40 mg PO HS #90 tab methocarbamoL [Robaxin] 500 mg PO TID PRN PRN Reason: Muscle Pain Clopidogrel [Plavix] 75 mg PO DAILY #90 tablet Metoprolol Tartrate 25 mg PO BID Semaglutide [Wegovy] 0.5 mg SQ WE Omeprazole [PriLOSEC] 20 mg PO BID Fluticasone Nasal [place] [Flonase Nasal [place]] 2 spr EA NOSTRIL BID busPIRone HCL 15 mg PO TID Apixaban [Eliquis] 5 mg PO BID #90 tab Isosorbide Mononitrate [Isosorbide Mononitrate ER] 30 mg PO DAILY Furosemide [Lasix] 40 mg PO DAILY Ibuprofen [Motrin] 600 mg PO Q6HR PRN PRN Reason: Pain Nitroglycerin Sl Tabs [Nitrostat] 0.4 mg SUBLINGUAL Q5M PRN #25 tab PRN Reason: Chest Pain Ezetimibe [Zetia] 10 mg PO DAILY Ondansetron Odt [Zofran ODT] 4 mg PO Q8H PRN #20 tab PRN Reason: Nausea Discharge Medication List Fluticasone Nasal [place] [Flonase Nasal [place]] 2 spr EA NOSTRIL BID 09/14/22 [History] Omeprazole [PriLOSEC] 20 mg PO BID 09/14/22 [History] QUEtiapine [SEROquel] 500 mg PO HS 09/14/22 [History] busPIRone HCL 15 mg PO TID 09/14/22 [History] Atorvastatin [Lipitor] 40 mg PO HS #90 tab 09/18/22 [Rx] methocarbamoL [Robaxin] 500 mg PO TID PRN 02/02/23 [History] Apixaban [Eliquis] 5 mg PO BID #90 tab 02/03/23 [Rx] Furosemide [Lasix] 40 mg PO DAILY 06/26/23 [History] Ibuprofen [Motrin] 600 mg PO Q6HR PRN 06/26/23 [History] Isosorbide Mononitrate [Isosorbide Mononitrate ER] 30 mg PO DAILY 06/26/23 [History] Clopidogrel [Plavix] 75 mg PO DAILY #90 tablet 06/28/23 [Rx] Nitroglycerin Sl Tabs [Nitrostat] 0.4 mg SUBLINGUAL Q5M PRN #25 tab 06/28/23 [Rx] Metoprolol Tartrate 25 mg PO BID 12/15/23 [History] Ezetimibe [Zetia] 10 mg PO DAILY 09/07/24 [History] Semaglutide [Wegovy] 0.5 mg SQ WE 09/07/24 [History] Ondansetron Odt [Zofran ODT] 4 mg PO Q8H PRN #20 tab 09/09/24 [Rx] Oseltamivir [Tamiflu] 75 mg PO Q12HR 2 Days #4 cap 09/09/24 [Rx] Follow up Appointment(s)/Referral(s): DANIEL MAS MD [REFERRING] - 1-2 Days Nonstaff,Physician [Primary Care Provider] - 1-2 days Ambulatory/Diagnostic Orders: Basic Metabolic Panel [LAB.AMB] Time Frame: 3 Days, Location: None Selected Patient Instructions/Handouts: Influenza (DC) Discharge Disposition: HOME SELF-CARE
== END 2024-09-09 12:28 | disposition home or self-care (01) ==
LOC: EC 21:11 → 6NMEDSUR 23:14
PROVIDERS: ADMIT Hospitalist; ATTEND Hospitalist
DX: J10.1 Influenza due to other identified influenza virus with other respiratory manifestations (principal); E86.0 Dehydration; E87.6 Hypokalemia; I11.0 Hypertensive heart disease with heart failure; I50.9 Heart failure, unspecified; I48.91 Unspecified atrial fibrillation; K21.9 Gastro-esophageal reflux disease without esophagitis; F31.9 Bipolar disorder, unspecified; F41.9 Anxiety disorder, unspecified; I25.10 Atherosclerotic heart disease of native coronary artery without angina pectoris; E78.5 Hyperlipidemia, unspecified; E66.9 Obesity, unspecified; Z68.37 Body mass index [BMI] 37.0-37.9, adult; Z87.891 Personal history of nicotine dependence; Z95.5 Presence of coronary angioplasty implant and graft; Z79.01 Long term (current) use of anticoagulants; Z79.02 Long term (current) use of antithrombotics/antiplatelets; Z79.51 Long term (current) use of inhaled steroids; Z79.82 Long term (current) use of aspirin; Z79.899 Other long term (current) drug therapy
CPT/HCPCS: 96376 ×4; 96375 ×3; 96361; 96374; 99285; 36415; 93005; 80053 ×2; 80048; 82150; 83605; 83690; 84132; 85025 ×3; 85610; 85730; 81001; 87636; 71046; G0378 ×4; J2270; J0360; J1200; J2405 ×4; J1885; J2470

== ENCOUNTER 2024-12-06 15:04 | Inpatient (IN) | payer OTHER ==
--- NOTE | 2024-12-06 15:22 | ED ---
General Adult HPI - General Chief complaint: Shortness of Breath Stated complaint: SOB Time Seen by Provider: 12/06/24 15:07 Source: patient, EMS, RN notes reviewed Mode of arrival: EMS Limitations: no limitations - History of Present Illness Initial comments: Patient is a 59-year-old female present to the emergency department with concerns with difficulty breathing. Onset of symptoms was today. Patient has had some sharp chest discomfort the past couple of days. Dyspnea does worsen with lying flat as well as exertion. Patient only able to walk 10 to 15 feet. No calf pain or leg edema. Patient does have history of similar symptoms previously associated with CHF. No congestion or fever. - Related Data Home Medications Medication Instructions Recorded Confirmed Fluticasone Nasal [place] [Flonase 2 spr EA NOSTRIL BID 09/14/22 09/07/24 Nasal [place]] Omeprazole [PriLOSEC] 20 mg PO BID 09/14/22 09/07/24 QUEtiapine [SEROquel] 500 mg PO HS 09/14/22 09/07/24 busPIRone HCL 15 mg PO TID 09/14/22 09/07/24 methocarbamoL [Robaxin] 500 mg PO TID PRN 02/02/23 09/07/24 Furosemide [Lasix] 40 mg PO DAILY 06/26/23 09/07/24 Ibuprofen [Motrin] 600 mg PO Q6HR PRN 06/26/23 09/07/24 Isosorbide Mononitrate [Isosorbide 30 mg PO DAILY 06/26/23 09/07/24 Mononitrate ER] Metoprolol Tartrate 25 mg PO BID 12/15/23 09/07/24 Ezetimibe [Zetia] 10 mg PO DAILY 09/07/24 09/07/24 Semaglutide [Wegovy] 0.5 mg SQ WE 09/07/24 09/07/24 Previous Rx's Medication Instructions Recorded Atorvastatin [Lipitor] 40 mg PO HS #90 tab 09/18/22 Apixaban [Eliquis] 5 mg PO BID #90 tab 02/03/23 Clopidogrel [Plavix] 75 mg PO DAILY #90 tablet 06/28/23 Nitroglycerin Sl Tabs [Nitrostat] 0.4 mg SUBLINGUAL Q5M PRN #25 tab 06/28/23 Ondansetron Odt [Zofran ODT] 4 mg PO Q8H PRN #20 tab 09/09/24 Oseltamivir [Tamiflu] 75 mg PO Q12HR 2 Days #4 cap 09/09/24 Allergies Allergy/AdvReac Type Severity Reaction Status Date / Time No Known Allergies Allergy Verified 12/06/24 15:10 Review of Systems ROS Statement: Those systems with pertinent positive or pertinent negative responses have been documented in the HPI. ROS Other: All systems not noted in ROS Statement are negative. Constitutional: Denies: fever Eyes: Denies: eye pain ENT: Denies: ear pain Respiratory: Reports: dyspnea. Denies: cough Cardiovascular: Reports: chest pain, dyspnea on exertion, orthopnea Endocrine: Reports: fatigue Gastrointestinal: Denies: abdominal pain Musculoskeletal: Denies: back pain Past Medical History Past Medical History: Atrial Fibrillation, Heart Failure, GERD/Reflux, Hyperlipidemia, Hypertension, Osteoarthritis (OA) Additional Past Medical History / Comment(s): Insomnia, past migraine, chronic back pain and neck pain and she has lumbar disk disease and she had lumbar surgery x4 and spine stimulator. cardiac cath with stent Jun 28, 2023. continued chest pain per pt. History of Any Multi-Drug Resistant Organisms: None Reported Past Surgical History: Cholecystectomy, Heart Catheterization With Stent, Joint Replacement, Orthopedic Surgery Additional Past Surgical History / Comment(s): - stent to the mid RCA,spinal stimulator implant in back, 2 cervical surgery, R rotator cuff repair, L knee replacement, right ankle fracture with surgery Past Anesthesia/Blood Transfusion Reactions: No Reported Reaction Date of Last Stent Placement:: 08/2023 Past Psychological History: Anxiety, Bipolar, Depression Smoking Status: Former smoker Past Alcohol Use History: None Reported Past Drug Use History: Marijuana - Past Family History Mother Family Medical History: Congestive Heart Failure (CHF) Father Family Medical History: Cancer Additional Family Medical History / Comment(s): lung and bone General Exam Limitations: no limitations General appearance: alert, in no apparent distress Head exam: Present: normocephalic Eye exam: Present: normal appearance Neck exam: Present: normal inspection Respiratory exam: Present: normal lung sounds bilaterally Cardiovascular Exam: Present: regular rate, normal rhythm, normal heart sounds Expanded Peripheral pulses: 2+: Radial (R), Radial (L), Posterior Tibialis (R), Posterior Tibialis (L) GI/Abdominal exam: Present: soft. Absent: tenderness Extremities exam: Present: pedal edema. Absent: calf tenderness Neurological exam: Present: alert Psychiatric exam: Present: normal affect, normal mood Skin exam: Present: normal color Course Vital Signs 12/06/24 15:06 Temperature 98.1 F Pulse Rate 81 Respiratory 17 Rate Blood Pressure 200/100 O2 Sat by Pulse 98 Oximetry EKG Findings - EKG Results: EKG: interpreted by ERMD, sinus rhythm, normal axis, normal QRS, normal ST/T Medical Decision Making - Medical Decision Making Was pt. sent in by a medical professional or institution (, PA, HEALTH INFORMATION DIRECTOR, urgent ca re, hospital, or [facility]...) When possible be specific @ -No Did you speak to anyone other than the patient for history (EMS, parent, family, police, friend...)? What history was obtained from this source @ -No Did you review nursing and triage notes (agree or disagree)? Why? @ -I reviewed and agree with nursing and triage notes Were old charts reviewed (outside hosp., previous admission, EMS record, old EKG, old radiological studies, urgent care reports/EKG's, [facility] records)? Report findings @ -No old charts were reviewed Differential Diagnosis (chest pain, altered mental status, abdominal pain women, abdominal pain men, vaginal bleeding, weakness, fever, dyspnea, syncope, headache, dizziness, GI bleed, back pain, seizure, CVA, palpatations, mental health, musculoskeletal)? @ -Differential Chest Pain: Stable Angina, Unstable Angina, STEMI, NSTEMI Aortic Dissection, Pneumothorax, Musculoskeletal, Esophageal Spasm GERD, Cholecystitis, Pancreatitis, Zoster, this is not meant to be an all-inclusive list. EKG interpreted by me (3pts min.). @ -As above X-rays interpreted by me (1pt min.). @ -Chest x-ray shows mild interstitial change, possible bronchitis CT interpreted by me (1pt min.). @ -None done U/S interpreted by me (1pt. min.). @ -None done What testing was considered but not performed or refused? (CT, X-rays, U/S, labs)? Why? @ -Consider D-dimer however patient is on Eliquis What meds were considered but not given or refused? Why? @ -None Did you discuss the management of the patient with other professionals (professionals i.e. , PA, HEALTH INFORMATION DIRECTOR, lab, RT, psych nurse, social work instructor, administrative assistant receptionist, teacher, correction officer reformatory, manager of case)? Give summary @ -Case was discussed with practitioner Rosaura Finley who will admit covering hospital call Was smoking cessation discussed for >3mins.? @ -No Was critical care preformed (if so, how long)? @ -No Were there social determinants of health that impacted care today? How? (Homelessness, low income, unemployed, alcoholism, drug addiction, transportation, low edu. Level, literacy, decrease access to med. care, nursing home, rehab)? @ -No Was there de-escalation of care discussed even if they declined (Discuss DNR or withdrawal of care, Hospice)? DNR status @ -No What co-morbidities impacted this encounter? (DM, HTN, Smoking, COPD, CAD, Cancer, CVA, ARF, Chemo, Hep., AIDS, mental health diagnosis, sleep apnea, morbid obesity)? @ -None Was patient admitted / discharged? Hospital course, mention meds given and route, prescriptions, significant lab abnormalities, going to OR and other pertinent info. @ -Patient presents with dyspnea and chest discomfort. Initial evaluation unremarkable. Patient will be admitted. Admission orders written. Patient reevaluated and updated. Undiagnosed new problem with uncertain prognosis? @ -No Drug Therapy requiring intensive monitoring for toxicity (Heparin, Nitro, Insulin, Cardizem)? @ -No Were any procedures done? @ -No Diagnosis/symptom? @ -Chest pain Acute, or Chronic, or Acute on Chronic? @ -Acute Uncomplicated (without systemic symptoms) or Complicated (systemic symptoms)? @ -Default Side effects of treatment? @ -No Exacerbation, Progression, or Severe Exacerbation? @ -No Poses a threat to life or bodily function? How? (Chest pain, [place], [place], pneumonia, PE, COPD, DKA, ARF, appy, cholecystitis, CVA, Diverticulitis, Homicidal, Suicidal, threat to staff... and all critical care pts) @ -Threat to cardiac and pulmonary function - Lab Data Result diagrams: 12/06/24 15:19 12/06/24 15:19 Lab Results 12/06/24 12/06/24 12/06/24 Range/Units 15:19 15:19 15:19 WBC 8.37 (4.50-10.00) 10*3/uL RBC 4.76 (4.10-5.20) 10*6/uL Hgb 14.2 (12.0-15.0) g/dL Hct 40.2 (37.2-46.3) % MCV 84.5 (80.0-97.0) fL MCH 29.8 (27.0-32.0) pg MCHC 35.3 (32.0-37.0) g/dL Plt Count 179 (140-440) 10*3/uL MPV 11.8 (9.5-12.2) fL Immature Gran % (Auto) 0.2 % Neutrophils % 45.0 % Lymphocytes % 44.9 % Monocytes % 8.7 % Eosinophils % 0.5 % Basophils % 0.7 % Immature Gran # 0.02 (0.00-0.04) 10*3/uL Neutrophils # 3.76 (1.80-7.70) 10*3/uL Lymphocytes # 3.76 (0.90-5.00) 10*3/uL Monocytes # 0.73 (0.20-1.00) 10*3/uL Eosinophils # 0.04 (0.04-0.35) 10*3/uL Basophils # 0.06 (0.00-0.10) 10*3/uL PT 11.5 (10.0-12.5) sec INR 1.1 (<1.2) APTT 25.9 (22.0-30.0) sec Sodium 139 (137-145) mmol/L Potassium 3.6 (3.5-5.1) mmol/L Chloride 106 (98-107) mmol/L Carbon Dioxide 20 L (22-30) mmol/L Anion Gap 13 mmol/L BUN 20 H (7-17) mg/dL Creatinine 1.08 H (0.52-1.04) mg/dL Est GFR (CKD-EPI)AfAm 65 (>60 ml/min/1.73 sqM) Est GFR (CKD-EPI)NonAf 56 (>60 ml/min/1.73 sqM) Glucose 108 H (74-99) mg/dL Calcium 10.2 (8.4-10.2) mg/dL Magnesium 1.6 (1.6-2.3) mg/dL Total Bilirubin 0.8 (0.2-1.3) mg/dL AST 20 (14-36) U/L ALT 32 (4-34) U/L Alkaline Phosphatase 97 (38-126) U/L Troponin I (0.000-0.034) ng/mL NT-Pro-B Natriuret Pep 111 pg/mL Total Protein 7.3 (6.3-8.2) g/dL Albumin 4.6 (3.5-5.0) g/dL 12/06/24 Range/Units 15:19 WBC (4.50-10.00) 10*3/uL RBC (4.10-5.20) 10*6/uL Hgb (12.0-15.0) g/dL Hct (37.2-46.3) % MCV (80.0-97.0) fL MCH (27.0-32.0) pg MCHC (32.0-37.0) g/dL Plt Count (140-440) 10*3/uL MPV (9.5-12.2) fL Immature Gran % (Auto) % Neutrophils % % Lymphocytes % % Monocytes % % Eosinophils % % Basophils % % Immature Gran # (0.00-0.04) 10*3/uL Neutrophils # (1.80-7.70) 10*3/uL Lymphocytes # (0.90-5.00) 10*3/uL Monocytes # (0.20-1.00) 10*3/uL Eosinophils # (0.04-0.35) 10*3/uL Basophils # (0.00-0.10) 10*3/uL PT (10.0-12.5) sec INR (<1.2) APTT (22.0-30.0) sec Sodium (137-145) mmol/L Potassium (3.5-5.1) mmol/L Chloride (98-107) mmol/L Carbon Dioxide (22-30) mmol/L Anion Gap mmol/L BUN (7-17) mg/dL Creatinine (0.52-1.04) mg/dL Est GFR (CKD-EPI)AfAm (>60 ml/min/1.73 sqM) Est GFR (CKD-EPI)NonAf (>60 ml/min/1.73 sqM) Glucose (74-99) mg/dL Calcium (8.4-10.2) mg/dL Magnesium (1.6-2.3) mg/dL Total Bilirubin (0.2-1.3) mg/dL AST (14-36) U/L ALT (4-34) U/L Alkaline Phosphatase (38-126) U/L Troponin I <0.012 (0.000-0.034) ng/mL NT-Pro-B Natriuret Pep pg/mL Total Protein (6.3-8.2) g/dL Albumin (3.5-5.0) g/dL Disposition Clinical Impression: Chest pain Disposition: ADMITTED IP TO THIS HOSP Is patient prescribed a controlled substance at d/c from ED?: No Referrals: Nonstaff,Physician [Primary Care Provider] - 1-2 days Time of Disposition: 17:09
[2024-12-06] MEDS: ASPIRIN 81 MG PO STA (15:35)
[2024-12-06] MEDS: NITROGLYCERIN OINT 1 INCH/GM PACKET TOPICAL STA (15:35)
[2024-12-06 15:36] LABS: Basophils # (A) 0.06 10*3/uL (0.00-0.10); Basophils % (A) 0.7 %; Eosinophils # (A) 0.04 10*3/uL (0.04-0.35); Eosinophils % (A) 0.5 %; HCT 40.2 % (37.2-46.3); HGB 14.2 g/dL (12.0-15.0); Lymphocytes # (A) 3.76 10*3/uL (0.90-5.00); Lymphocytes % (A) 44.9 %; MCH 29.8 pg (27.0-32.0); MCHC 35.3 g/dL (32.0-37.0); MCV 84.5 fL (80.0-97.0); Mean Platelet Volume 11.8 fL (9.5-12.2); Monocytes # (A) 0.73 10*3/uL (0.20-1.00); Monocytes % (A) 8.7 %; Neutrophils # (A) 3.76 10*3/uL (1.80-7.70); Platelet Count 179 10*3/uL (140-440); RBC 4.76 10*6/uL (4.10-5.20); RDW 13.3 % (11.5-14.5); WBC 8.37 10*3/uL (4.50-10.00)
[2024-12-06 15:41] LABS: ALT 32 U/L (4-34); AST 20 U/L (14-36); African American GFR (CKD) 65 (>60 ml/min/1.73 sqM); Albumin 4.6 g/dL (3.5-5.0); Alkaline Phosphatase 97 U/L (38-126); Anion Gap 13 mmol/L; Blood Urea Nitrogen 20 mg/dL (7-17); Calcium 10.2 mg/dL (8.4-10.2); Carbon Dioxide 20 mmol/L (22-30); Chloride 106 mmol/L (98-107); Glucose 108 mg/dL (74-99); Magnesium 1.6 mg/dL (1.6-2.3); Non-African American GFR(CKD) 56 (>60 ml/min/1.73 sqM); Potassium 3.6 mmol/L (3.5-5.1); Sodium 139 mmol/L (137-145); Total Bilirubin 0.8 mg/dL (0.2-1.3); Total Protein 7.3 g/dL (6.3-8.2)
[2024-12-06 15:44] LABS: INR 1.1 (<1.2); Partial Thromboplastin Time 25.9 sec (22.0-30.0); Prothrombin Time 11.5 sec (10.0-12.5)
[2024-12-06 15:49] LABS: NT-Pro-B-Type Natriuretic Pept 111 pg/mL
--- NOTE | 2024-12-06 16:25 | XR ---
EXAMINATION TYPE: XR chest 2V DATE OF EXAM: 12/06/2024 4:20 PM COMPARISON: 09/06/2024 CLINICAL INDICATION: Female, 59 years old with history of Chest Pain, , TECHNIQUE: PA and lateral views FINDINGS: ACDF hardware. Heart borderline in size. Mild interstitial densities similar. Spinal stimulator ray c entered along the lower thoracic spinal canal. No consolidation or pleural effusion. Mild hyperinflat ion. IMPRESSION: Borderline heart size and COPD. There is interstitial prominence which could reflect a prominent comp onent of chronic bronchitis or superimposed acute bronchitis. Clinically correlate. [facility], Workstation: [id number], 12/06/2024 4:22 PM
[2024-12-06] MEDS ORDERED: NITROGLYCERIN SL TABS 0.4 MG TAB SUBLINGUAL PRN (17:09)
[2024-12-06] MEDS: IPRATROPIUM-ALBUTEROL 3 ML NEB INHALATION STA (17:29)
[2024-12-07] MEDS: ASPIRIN 325 MG TAB PO SCH (08:10)
[2024-12-07] MEDS: IBUPROFEN 600 MG TAB PO PRN (09:36)
[2024-12-07] MEDS: busPIRone HCl 5 MG TAB PO SCH (09:37)
[2024-12-07] MEDS: EZETIMIBE 10 MG TAB PO SCH (09:37)
[2024-12-07] MEDS: ISOSORBIDE MONONITRATE ER 30 MG TAB.ER.24H PO SCH (09:37)
[2024-12-07] MEDS: PANTOPRAZOLE 40 MG TABLET PO SCH (09:37)
[2024-12-07] MEDS: METOPROLOL TARTRATE 25 MG TAB PO SCH (09:37)
[2024-12-07] MEDS: methocarbamoL 500 MG TAB PO PRN (09:37)
[2024-12-07 11:07] LABS: LDL Cholesterol,Calculated 85.4 mg/dL (0.0-131.0)
[2024-12-07] MEDS: FLUTICASONE NASAL 50MCG/SPRAY 16GM BTL EA NOSTRIL SCH (11:25)
[2024-12-07] MEDS: LOSARTAN 25 MG TAB PO SCH (11:25)
[2024-12-07] MEDS ORDERED: IPRATROPIUM-ALBUTEROL 3 ML NEB INHALATION PRN (11:48)
--- NOTE | 2024-12-07 12:38 | CA ---
Transthoracic Echo Report Name: Radha Dodd Age: 59 Gender: F : 1965 Exam Date: 12/07/2024 10:31 Exam Location: [facility] Ht (in): 65 Wt (lb): 200 Ordering Physician: Maria M Estrada Attending/Referring Phys: [id number], Sean Manager Infrastructure Cecille Regalado RDCS Procedure CPT: Indications: LVF, CP Cardiac Hx: Technical Quality: Good, Fair Contrast 1: Definity Total Dose (mL): 2 Contrast 2: Total Dose (mL): MEASUREMENTS (Male / Female) Normal Values 2D ECHO LV Diastolic Diameter PLAX 4.9 cm 4.2 - 5.9 / 3.9 - 5.3 cm LV Systolic Diameter PLAX 4.1 cm IVS Diastolic Thickness 1.2 cm 0.6 - 1.0 / 0.6 - 0.9 cm LVPW Diastolic Thickness 1.1 cm 0.6 - 1.0 / 0.6 - 0.9 cm LV Relative Wall Thickness 0.5 RV Internal Dim ED PLAX 2.8 cm LVOT Diameter 2.2 cm LA Systolic Diameter LX 4.2 cm 3.0 - 4.0 / 2.7 - 3.8 cm LV Diastolic Volume MOD BP 123.0 cm??? 67 - 155 / 56 - 104 cm??? LV Systolic Volume MOD BP 71.7 cm??? 22 - 58 / 19 - 49 cm??? LV Ejection Fraction MOD BP 41.7 % >= 55 % LV Cardiac Index MOD BP 2051.6 cm???/min???m??? LV Diastolic Volume MOD 4C 121.3 cm??? LV Systolic Volume MOD 4C 73.6 cm??? LV Ejection Fraction MOD 4C 39.3 % LV Cardiac Index MOD 4C 1907.8 cm???/min???m??? LV Diastolic Length 4C 8.2 cm LV Systolic Length 4C 7.8 cm LV Diastolic Volume MOD 2C 114.2 cm??? LV Systolic Volume MOD 2C 67.7 cm??? LV Ejection Fraction MOD 2C 40.8 % LV Cardiac Index MOD 2C 1862.5 cm???/min???m??? LV Diastolic Length 2C 7.5 cm LV Systolic Length 2C 7.4 cm LA Volume 98.0 cm??? 18 - 58 / 22 - 52 cm??? LA Volume Index 47.2 cm???/m??? 16 - 28 cm???/m??? M-MODE Aortic Root Diameter MM 2.9 cm LA Systolic Diameter MM 4.2 cm LA Ao Ratio MM 1.4 AV Cusp Separation MM 1.4 cm DOPPLER AV Peak Velocity 202.7 cm/s AV Peak Gradient 16.4 mmHg AV Mean Velocity 144.4 cm/s AV Mean Gradient 9.1 mmHg AV Velocity Time Integral 36.8 cm AI Peak Velocity 582.9 cm/s AI Peak Gradient 135.9 mmHg AI Pressure Half Time 408.6 ms LVOT Peak Velocity 87.0 cm/s LVOT Peak Gradient 3.0 mmHg LVOT Velocity Time Integral 18.6 cm LVOT Stroke Volume 71.5 cm??? LVOT Stroke Volume Index 36.1 ml/m??? LVOT Cardiac Index 2859.7 cm???/min???m??? AV Area Cont Eq vti 1.9 cm??? AV Area Cont Eq pk 1.6 cm??? MV Area PHT 3.6 cm??? MR Peak Velocity 711.3 cm/s MR Peak Gradient 202.4 mmHg MR Flow Rate PISA 60.6 cm???/s Mitral E Point Velocity 106.7 cm/s Mitral A Point Velocity 3.2 cm/s Mitral E to A Ratio 33.0 MV Deceleration Time 208.0 ms TR Peak Velocity 255.3 cm/s TR Peak Gradient 26.1 mmHg FINDINGS Left Ventricle Left ventricular ejection fraction is estimated at 35-40%. Mildly increased septal wall thickness. Mildly increased posterior wall thickness. Moderately increased left ventricular diastolic volume. Severely increased left ventricular systolic volume. Moderately decreased left ventricular ejection fraction. Right Ventricle Normal right ventricular size and function. Right ventricular systolic pressure within normal limits. Right Atrium Normal right atrial size. Left Atrium Severely increased left atrial volume. Mitral Valve Mitral valve thickened. Vunzhoef-[id number] mitral regurgitation, 2 MR jets. No mitral stenosis. Aortic Valve Trileaflet aortic valve. Fixed LCC. Mild aortic stenosis with a peak gradient of 16 mmHg and a mean gradient of 9 mmHg. Severe aortic regurgitation. Holodiastolic flow reversal in the descending aorta. Tricuspid Valve Structurally normal tricuspid valve. Trace to mild tricuspid regurgitation. Pulmonic Valve Structurally normal pulmonic valve. Trace pulmonic regurgitation. No pulmonic stenosis. Pericardium No pericardial or pleural effusion. Aorta Normal size aortic root and proximal ascending aorta. CONCLUSIONS Left ventricular ejection fraction 35 to 40% Moderate to severe mitral regurgitation Mild aortic stenosis Moderate to severe aortic regurgitation with holodiastolic flow reversal in the descending aorta concerning for severe aortic insufficiency. Previewed by: Dr. Arie Vazquez DO (Electronically Signed) Final Date: 07 Dec 2024 12:37
[2024-12-07] MEDS: methylPREDNISolone SOD SUCCI 40 MG/ML 1 ML VIAL IV SCH (13:02)
--- NOTE | 2024-12-07 13:03 | P.CRDCN ---
History of Present Illness Consult date: 12/07/24 Consult reason: chest pain History of present illness: This is a 59-year-old female patient of Dr. Meyer with past medical history of coronary artery disease status post stent, paroxysmal atrial fibrillation on Eliquis, hypertension, dyslipidemia, mitral valve regurgitation, moderate mitral insufficiency, PVCs, intermittent claudication, remote history of tobacco use. We have been asked to evaluate the patient for chest pain. Patient states that she had a fluttering sensation in her chest as well as a stabbing sensation of pain. She developed shortness of breath and felt like she could not catch her breath. She denies any chest pain at this time. But still feels a fluttering in her chest. The pain was a sharp and squeezing type pain. She thinks this pain is similar to what she had about a year ago when she required a stent yoanna cement. She denies any cough no fever or chills. She denies any blood in her stool or urine. Pain is located in the left upper lateral area with no tenderness. She denies being told she has asthma or COPD. Blood pressure 187/97, heart rate 88, pulse ox 97% on room air. Patient has Nitropaste on with complaints of headache and this will be discontinued. Blood pressure 188/93, heart rate 96, pulse ox 98% on room air. Regarding blood pressure, patient states her blood pressure normally at home at best is 138/68. She states she is taking all of her medications as directed. Patient is seen today in the emergency center waiting for a bed on the observation unit. -EKG: Sinus rhythm with no acute ST-T wave changes. -Chest x-ray: Chronic bronchitis. COPD. Borderline heart size. -Echocardiogram reveals EF of 35 to 40%, moderate to severe mitral regurgitation, mild aortic stenosis, moderate to severe aortic regurgitation with holodiastolic flow reversal in the descending aorta concerning for severe aortic insufficiency. -Laboratory studies: CBC, INR normal, troponin negative x 3. Triglycerides 147, cholesterol 159, LDL 85, HDL 44. BUN 20 creatinine 1.08. Magnesium 1.6. Liver function test within normal limits. -Home cardiac medications: Eliquis 5 mg twice daily, atorvastatin 40 mg at bedtime, Plavix 75 mg daily, Zetia 10 mg daily, Lasix 40 mg daily, isosorbide mononitrate 30 mg daily, metoprolol tartrate 25 mg twice daily. Patient is also on Wegovy. - Most recent cardiac catheterization performed 12/19/2023 revealed severe stenosis in the mid LAD, severe stenosis in the OM1, patent stent in the RCA and OM 2, moderate disease in the ostium of the RCA. Patient underwent successful stenting of the mid LAD with intravascular ultrasound imaging and RUSH III flow. Patient also underwent successful stenting of the OM1 involving the bifurcation with IVUS imaging and RUSH III flow. -Event monitor performed 03/26/2024 - 04/01/2024 revealed baseline rhythm is sinus rhythm running between 57 and 154. Atrial fibrillation burden less than 1%. She had 1 episode of A-fib with ventricular rate of 150 that was asymptomatic. Ventricular ectopy activity burden was less than 1%. Patient had 5 complex nonsustained V. tach that was asymptomatic. Symptoms of chest pressure, shortness of breath, did not correlate with any specific arrhythmia. Review Of Systems: At the time of my exam: CONSTITUTIONAL: Denies fever or chills. Complains of headache. HEENT: Denies blurred vision, vision changes, or eye pain. Denies hemoptysis CARDIOVASCULAR: Denies chest pain. Denies orthopnea. Denies PND. Denies palpitations RESPIRATORY: Denies shortness of breath. GASTROINTESTINAL: Denies abdominal pain. Denies nausea or vomiting. HEMATOLOGIC: Denies bleeding disorders. GENITOURINARY: Denies any blood in urine. SKIN: Denies puritis. Denies rash. Physical examination: Gen: This is a 59-year-old female in no acute distress VS: reviewed HEENT: Head is atraumatic, normocephalic. Pupils equal, round. Sclerae is anicteric. NECK: Supple. No JVD. LUNGS: Clear to auscultation. No wheezes or rhonchi. No intercostal retractions. HEART: Regular rate and rhythm. No murmur. ABDOMEN: Soft No tenderness. EXTREMITIES: No pedal edema. No calf tenderness. NEUROLOGICAL: Patient is awake, alert and oriented x3. Assessment: Atypical chest pain, acute coronary syndrome ruled out History of coronary artery disease with previous stenting most recently in December 2023 Paroxysmal atrial fibrillation on Eliquis, currently in sinus rhythm Hypertension Dyslipidemia Valvular heart disease with severe mitral valve regurgitation, mild aortic stenosis, moderate to severe aortic regurgitation, possible severe aortic insufficiency Cardiomyopathy with drop in EF to 35 to 40% and previously was normal Plan: Resume patient's home cardiac medications Discontinue Nitropaste Start patient on losartan 25 mg daily Patient tentatively scheduled for Lexiscan Cardiolite stress test on 12/09, Monday Further recommendations to follow based upon clinical course Thank you kindly for this consultation. Nurse practitioner note has been reviewed, I agree with documented findings and plan of care. Patient was seen and examined. Past Medical History Past Medical History: Atrial Fibrillation, Heart Failure, GERD/Reflux, Hyperlipidemia, Hypertension, Osteoarthritis (OA) Additional Past Medical History / Comment(s): Insomnia, past migraine, chronic back pain and neck pain and she has lumbar disk disease and she had lumbar surge ry x4 and spine stimulator. cardiac cath with stent Jun 28, 2023. continued chest pain per pt. History of Any Multi-Drug Resistant Organisms: None Reported Past Surgical History: Cholecystectomy, Heart Catheterization With Stent, Joint Replacement, Orthopedic Surgery Additional Past Surgical History / Comment(s): - stent to the mid RCA,spinal stimulator implant in back, 2 cervical surgery, R rotator cuff repair, L knee re placement, right ankle fracture with surgery Past Anesthesia/Blood Transfusion Reactions: No Reported Reaction Date of Last Stent Placement:: 08/2023 Past Psychological History: Anxiety, Bipolar, Depression Smoking Status: Former smoker Past Alcohol Use History: None Reported Past Drug Use History: Marijuana - Past Family History Mother Family Medical History: Congestive Heart Failure (CHF) Father Family Medical History: Cancer Additional Family Medical History / Comment(s): lung and bone Medications and Allergies Home Medications Medication Instructions Recorded Confirmed Type Fluticasone Nasal [place] [Flonase 2 spr EA NOSTRIL BID 09/14/22 12/06/24 History Nasal [place]] Omeprazole [PriLOSEC] 20 mg PO BID 09/14/22 12/06/24 History QUEtiapine [SEROquel] 500 mg PO HS 09/14/22 12/06/24 History busPIRone HCL 15 mg PO QID 09/14/22 12/06/24 History Atorvastatin [Lipitor] 40 mg PO HS #90 tab 09/18/22 12/06/24 Rx methocarbamoL [Robaxin] 1,500 mg PO TID 02/02/23 12/06/24 History Apixaban [Eliquis] 5 mg PO BID #90 tab 02/03/23 12/06/24 Rx Furosemide [Lasix] 40 mg PO DAILY 06/26/23 12/06/24 History Ibuprofen [Motrin] 600 mg PO Q6HR PRN 06/26/23 12/06/24 History Isosorbide Mononitrate [Isosorbide 30 mg PO DAILY 06/26/23 12/06/24 History Mononitrate ER] Clopidogrel [Plavix] 75 mg PO DAILY #90 tablet 06/28/23 12/06/24 Rx Metoprolol Tartrate 25 mg PO BID 12/15/23 12/06/24 History Ezetimibe [Zetia] 10 mg PO DAILY 09/07/24 12/06/24 History Semaglutide [Wegovy] 0.5 mg SQ FR@0800 09/07/24 12/06/24 History Ondansetron Odt [Zofran ODT] 4 mg PO Q8H PRN #20 tab 09/09/24 12/06/24 Rx Desvenlafaxine Succinate [Pristiq] 100 mg PO HS 12/06/24 12/07/24 History Allergies Allergy/AdvReac Type Severity Reaction Status Date / Time No Known Allergies Allergy Verified 12/06/24 18:20 Physical Exam Vitals: Vital Signs Temp Pulse Resp BP Pulse Ox 12/07/24 09:42 89 18 12/07/24 08:10 96 20 188/93 97 12/07/24 07:59 22 12/07/24 06:06 85 18 171/89 96 12/06/24 21:45 75 18 162/90 97 12/06/24 18:10 67 17 174/92 96 12/06/24 17:37 74 12/06/24 17:30 74 12/06/24 15:06 98.1 F 81 17 200/100 98 Intake and Output 12/06/24 12/07/24 12/07/24 22:59 06:59 14:59 Other: Weight 90.718 kg Results 12/06/24 15:19 12/06/24 15:19 Cardiac Enzymes 12/06/24 12/06/24 12/06/24 Range/Units 15:19 15:19 17:59 AST 20 (14-36) U/L Troponin I <0.012 <0.012 (0.000-0.034) ng/mL 12/06/24 Range/Units 20:59 AST (14-36) U/L Troponin I <0.012 (0.000-0.034) ng/mL Coagulation 12/06/24 Range/Units 15:19 PT 11.5 (10.0-12.5) sec APTT 25.9 (22.0-30.0) sec CBC 12/06/24 Range/Units 15:19 WBC 8.37 (4.50-10.00) 10*3/uL RBC 4.76 (4.10-5.20) 10*6/uL Hgb 14.2 (12.0-15.0) g/dL Hct 40.2 (37.2-46.3) % Plt Count 179 (140-440) 10*3/uL Comprehensive Metabolic Panel 12/06/24 Range/Units 15:19 Sodium 139 (137-145) mmol/L Potassium 3.6 (3.5-5.1) mmol/L Chloride 106 (98-107) mmol/L Carbon Dioxide 20 L (22-30) mmol/L BUN 20 H (7-17) mg/dL Creatinine 1.08 H (0.52-1.04) mg/dL Glucose 108 H (74-99) mg/dL Calcium 10.2 (8.4-10.2) mg/dL AST 20 (14-36) U/L ALT 32 (4-34) U/L Alkaline Phosphatase 97 (38-126) U/L Total Protein 7.3 (6.3-8.2) g/dL Albumin 4.6 (3.5-5.0) g/dL Current Medications Generic Name Dose Route Start Last Admin Trade Name Freq PRN Reason Stop Dose Admin Aspirin 325 mg 12/07/24 09:00 12/07/24 08:10 Aspirin 325 Mg Tab PO 325 mg DAILY ZONIA Administration Atorvastatin Calcium 40 mg 12/07/24 21:00 Atorvastatin 40 Mg Tab PO HS ZONIA Buspirone HCl 15 mg 12/07/24 09:00 12/07/24 09:37 Buspirone Hcl 5 Mg Tab PO 15 mg QID ZONIA Administration Desvenlafaxine Succinate 100 mg 12/07/24 21:00 Desvenlafaxine Succinate 50 Mg Tab.Er.24h PO HS ZONIA Ezetimibe 10 mg 12/07/24 09:00 12/07/24 09:37 Ezetimibe 10 Mg Tab PO 10 mg DAILY ZONIA Administration Fluticasone Propionate 2 spray 12/07/24 09:00 Fluticasone Nasal 50mcg/[place] 16gm Btl EA NOSTRIL BID ZONIA Ibuprofen 600 mg 12/07/24 08:57 12/07/24 09:36 Ibuprofen 600 Mg Tab PO 600 mg Q6HR PRN Administration Pain Isosorbide Mononitrate 30 mg 12/07/24 09:00 12/07/24 09:37 Isosorbide Mononitrate Er 30 Mg Tab.Er.24h PO 30 mg DAILY ZONIA Administration Methocarbamol 1,500 mg 12/07/24 08:57 12/07/24 09:37 Methocarbamol 500 Mg Tab PO 1,500 mg TID PRN Administration Pain Metoprolol Tartrate 25 mg 12/07/24 09:00 12/07/24 09:37 Metoprolol Tartrate 25 Mg Tab PO 25 mg BID ZONIA Administration Nitroglycerin 0.4 mg 12/06/24 17:09 Nitroglycerin Sl Tabs 0.4 Mg Tab SUBLINGUAL Q5M PRN Chest Pain Ondansetron HCl 4 mg 12/07/24 08:57 Ondansetron Odt 4 Mg Tab PO Q8H PRN Nausea Pantoprazole Sodium 40 mg 12/07/24 09:00 12/07/24 09:37 Pantoprazole 40 Mg Tablet PO 40 mg BID ZONIA Administration Quetiapine Fumarate 500 mg 12/07/24 21:00 Quetiapine 100 Mg Tab PO HS [facility] Intake and Output 12/06/24 12/07/24 12/07/24 22:59 06:59 14:59 Other: Weight 90.718 kg 12/06/24 15:19 12/06/24 15:19
--- NOTE | 2024-12-07 14:24 | P.HPIM ---
History of Present Illness H&P Date: 12/07/24 History of present illness; patient is a 59-year-old lady with past medical history significant for CHF, hypertension, hyperlipidemia who presented to the ER because of shortness of breath. Patient stated that she was all right yesterday when started noticing shortness of breath that was sudden onset, shortness of breath was present at rest as on exertion, states she is unable to walk more than 10-15 steps. Patient was also been noticing chest pressure that is intermittent, central, nonradiating, no aggravating or alleviating factors associated with this chest pressure. Patient is complaining of orthopnea. No complaint of PND. Patient denies any palpitation. There is no complaint of or thopnea or PND. Denies any nausea, vomiting abdominal pain. Patient denies any complaint of dizziness. There is no complaint of headache. Because of the symptoms, patient was brought to the ER Initial lab work done in the ER showed CBC 8.37, hemoglobin 14.2, platelet count 179, sodium 139, potassium 3.6, BUN 20, creatinine 1.08, glucose 108 troponin 0.012 EKG done in the ER showed heart rate of 77, no ST segment elevation or depression seen, no T-wave inversions seen. Chest x-ray done in the ER showed borderline heart size and COPD, interstitial prominence which could reflect a prominent complaint of chronic bronchitis or superimposed acute bronchitis Patient admitted to internal medicine service REVIEW OF SYSTEMS: CONSTITUTIONAL: No fever, no malaise, no fatigue. HEENT: No recent visual problems or hearing problems. Denied any sore throat. CARDIOVASCULAR: As mentioned above PULMONARY: As mentioned above GASTROINTESTINAL: No diarrhea, no nausea, no vomiting, no abdominal pain. NEUROLOGICAL: No headaches, no weakness, no numbness. HEMATOLOGICAL: Denies any bleeding or petechiae. GENITOURINARY: Denies any burning micturition, frequency, or urgency. MUSCULOSKELETAL/RHEUMATOLOGICAL: Denies any joint pain, swelling, or any muscle pain. ENDOCRINE: Denies any polyuria or polydipsia. The rest of the 14-point review of systems is negative. PHYSICAL EXAMINATION: GENERAL: The patient is alert and oriented x3, not in any acute distress. Well developed, well nourished. HEENT: Pupils are round and equally reacting to light. EOMI. No scleral icterus. No conjunctival pallor. Normocephalic, atraumatic. No pharyngeal erythema. No thyromegaly. CARDIOVASCULAR: S1 and S2 present. No murmurs, rubs, or gallops. PULMONARY: Chest is clear to auscultation, no wheezing or crackles. ABDOMEN: Soft, nontender, nondistended, normoactive bowel sounds. No palpable organomegaly. MUSCULOSKELETAL: No joint swelling or deformity. EXTREMITIES: No cyanosis, clubbing, or pedal edema. NEUROLOGICAL: Gross neurological examination did not reveal any focal deficits. SKIN: No rashes. Assessment and plan Chest pain, rule out acute cord syndrome Acute COPD exacerbation Hypertension Hyperlipidemia History of coronary artery disease with previous stenting most recently in December 2023 Paroxysmal atrial fibrillation on Eliquis, currently in sinus rhythm Valvular heart disease with severe mitral valve regurgitation, mild aortic stenosis, moderate to severe aortic regurgitation, possible severe aortic insufficiency Cardiomyopathy with drop in EF to 35 to 40% and previously was normal History of tobacco addiction Monitor vital signs Monitor CBC Monitor CMP Continue telemetry monitoring Trend troponin Ordered D-dimer Resume aspirin, Lipitor Ordered breathing treatments Ordered IV Solu-Medrol Ordered stress test cardiology consulted Labs and medication were reviewed.. Continue same treatment. Continue with symptomatic treatment. Resume home medication. Monitor labs and vitals. DVT and GI prophylaxis. Further recommendations as per clinical course of the patient Dictation was produced using ioSafe dictation software. please excuse any grammatical, word or spelling errors. Past Medical History Past Medical History: Atrial Fibrillation, Heart Failure, GERD/Reflux, Hyperlipidemia, Hypertension, Osteoarthritis (OA) Additional Past Medical History / Comment(s): Insomnia, past migraine, chronic back pain and neck pain and she has lumbar disk disease and she had lumbar surgery x4 and spine stimulator. cardiac cath with stent Jun 28, 2023. continued chest pain per pt. History of Any Multi-Drug Resistant Organisms: None Reported Past Surgical History: Cholecystectomy, Heart Catheterization With Stent, Joint Replacement, Orthopedic Surgery Additional Past Surgical History / Comment(s): - stent to the mid RCA,spinal st imulator implant in back, 2 cervical surgery, R rotator cuff repair, L knee replacement, right ankle fracture with surgery Past Anesthesia/Blood Transfusion Reactions: No Reported Reaction Date of Last Stent Placement:: 08/2023 Past Psychological History: Anxiety, Bipolar, Depression Smoking Status: Former smoker Past Alcohol Use History: None Reported Past Drug Use History: Marijuana - Past Family History Mother Family Medical History: Congestive Heart Failure (CHF) Father Family Medical History: Cancer Additional Family Medical History / Comment(s): lung and bone Medications and Allergies Home Medications Medication Instructions Recorded Confirmed Type Fluticasone Nasal [place] [Flonase 2 spr EA NOSTRIL BID 09/14/22 12/06/24 History Nasal [place]] Omeprazole [PriLOSEC] 20 mg PO BID 09/14/22 12/06/24 History QUEtiapine [SEROquel] 500 mg PO HS 09/14/22 12/06/24 History busPIRone HCL 15 mg PO QID 09/14/22 12/06/24 History Atorvastatin [Lipitor] 40 mg PO HS #90 tab 09/18/22 12/06/24 Rx methocarbamoL [Robaxin] 1,500 mg PO TID 02/02/23 12/06/24 History Apixaban [Eliquis] 5 mg PO BID #90 tab 02/03/23 12/06/24 Rx Furosemide [Lasix] 40 mg PO DAILY 06/26/23 12/06/24 History Ibuprofen [Motrin] 600 mg PO Q6HR PRN 06/26/23 12/06/24 History Isosorbide Mononitrate [Isosorbide 30 mg PO DAILY 06/26/23 12/06/24 History Mononitrate ER] Clopidogrel [Plavix] 75 mg PO DAILY #90 tablet 06/28/23 12/06/24 Rx Metoprolol Tartrate 25 mg PO BID 12/15/23 12/06/24 History Ezetimibe [Zetia] 10 mg PO DAILY 09/07/24 12/06/24 History Semaglutide [Wegovy] 0.5 mg SQ FR@0800 09/07/24 12/06/24 History Ondansetron Odt [Zofran ODT] 4 mg PO Q8H PRN #20 tab 09/09/24 12/06/24 Rx Desvenlafaxine Succinate [Pristiq] 100 mg PO HS 12/06/24 12/07/24 History Allergies Allergy/AdvReac Type Severity Reaction Status Date / Time No Known Allergies Allergy Verified 12/06/24 18:20 Physical Exam Vitals: Vital Signs Temp Pulse Resp BP Pulse Ox 12/07/24 11:27 88 15 187/97 97 12/07/24 11:00 18 12/07/24 10:45 26 H 12/07/24 09:42 89 18 12/07/24 08:10 96 20 188/93 97 12/07/24 07:59 22 12/07/24 06:06 85 18 171/89 96 12/06/24 21:45 75 18 162/90 97 12/06/24 18:10 67 17 174/92 96 12/06/24 17:37 74 12/06/24 17:30 74 12/06/24 15:06 98.1 F 81 17 200/100 98 Intake and Output 12/06/24 12/07/24 12/07/24 22:59 06:59 14:59 Other: Voiding Method Indwelling Catheter Weight 90.718 kg Results CBC & Chem 7: 12/06/24 15:19 12/06/24 15:19 Labs: Abnormal Lab Results - Last 24 Hours (Table) 12/06/24 Range/Units 15:19 Carbon Dioxide 20 L (22-30) mmol/L BUN 20 H (7-17) mg/dL Creatinine 1.08 H (0.52-1.04) mg/dL Glucose 108 H (74-99) mg/dL
[2024-12-07] MEDS: ATORVASTATIN 40 MG TAB PO SCH (20:22)
[2024-12-07] MEDS: DESVENLAFAXINE SUCCINATE 50 MG TAB.ER.24H PO SCH (20:24)
[2024-12-07] MEDS: QUEtiapine 100 MG TAB PO SCH (23:12)
[2024-12-08] MEDS: ASPIRIN 81 MG PO SCH (08:56)
[2024-12-08] MEDS ORDERED: fentaNYL (PF) 50 MCG/ML 2 ML AMP IVP PRN (09:47)
[2024-12-08] MEDS ORDERED: MIDAZOLAM 2 MG/2 ML VIAL IV PRN (09:47)
[2024-12-08] MEDS: ALPRAZolam 0.5 MG TAB PO STA (10:33)
[2024-12-08] MEDS: LOSARTAN 25 MG TAB PO STA (10:33)
[2024-12-08 10:44] LABS: African American GFR (CKD) 90 (>60 ml/min/1.73 sqM); Anion Gap 10 mmol/L; Blood Urea Nitrogen 15 mg/dL (7-17); Calcium 9.9 mg/dL (8.4-10.2); Carbon Dioxide 22 mmol/L (22-30); Chloride 108 mmol/L (98-107); Glucose 109 mg/dL (74-99); Non-African American GFR(CKD) 78 (>60 ml/min/1.73 sqM); Potassium 4.1 mmol/L (3.5-5.1); Sodium 140 mmol/L (137-145)
[2024-12-08] MEDS ORDERED: ALPRAZolam 0.25 MG TAB PO PRN (13:02)
[2024-12-08] MEDS ORDERED: NITROGLYCERIN SL TABS 0.4 MG TAB SUBLINGUAL PRN (13:02)
--- NOTE | 2024-12-08 13:10 | P.PN ---
Subjective Progress Note Date: 12/08/24 Consult reason: chest pain History of present illness: This is a 59-year-old female patient of Dr. Meyer with past medical history of coronary artery disease status post stent, paroxysmal atrial fibrillation on Eliquis, hypertension, dyslipidemia, mitral valve regurgitation, moderate mitral insufficiency, PVCs, intermittent claudication, remote history of tobacco use. We have been asked to evaluate the patient for chest pain. Patient states that she had a fluttering sensation in her chest as well as a stabbing sensation of pain. She developed shortness of breath and felt like she could not catch her breath. She denies any chest pain at this time. But still feels a fluttering in her chest. The pain was a sharp and squeezing type pain. She thinks this pain is similar to what she had about a year ago when she required a stent placement. She denies any cough no fever or chills. She denies any blood in her stool or urine. Pain is located in the left upper lateral area with no tenderness. She denies being told she has asthma or COPD. Blood pressure 187/97, heart rate 88, pulse ox 97% on room air. Patient has Nitropaste on with complaints of headache and this will be discontinued. Blood pressure 188/93, heart rate 96, pulse ox 98% on room air. Regarding blood pressure, patient states her blood pressure normally at home at best is 138/68. She states she is taking all of her medications as directed. Patient is seen today in the emergency center waiting for a bed on the observation unit. -EKG: Sinus rhythm with no acute ST-T wave changes. -Chest x-ray: Chronic bronchitis. COPD. Borderline heart size. -Echocardiogram reveals EF of 35 to 40%, moderate to severe mitral regurgitation, mild aortic stenosis, moderate to severe aortic regurgitation with holodiastolic flow reversal in the descending aorta concerning for severe aortic insufficiency. -Laboratory studies: CBC, INR normal, troponin negative x 3. Triglycerides 147, cholesterol 159, LDL 85, HDL 44. BUN 20 creatinine 1.08. Magnesium 1.6. Liver function test within normal limits. -Home cardiac medications: Eliquis 5 mg twice daily, atorvastatin 40 mg at bedtime, Plavix 75 mg daily, Zetia 10 mg daily, Lasix 40 mg daily, isosorbide mononitrate 30 mg daily, metoprolol tartrate 25 mg twice daily. Patient is also on Wegovy. - Most recent cardiac catheterization performed 12/19/2023 revealed severe stenosis in the mid LAD, severe stenosis in the OM1, patent stent in the RCA and OM 2, moderate disease in the ostium of the RCA. Patient underwent successful stenting of the mid LAD with intravascular ultrasound imaging and RUSH III flow. Patient also underwent successful stenting of the OM1 involving the bifurcation with IVUS imaging and RUSH III flow. -Event monitor performed 03/26/2024 - 04/01/2024 revealed baseline rhythm is sinus rhythm running between 57 and 154. Atrial fibrillation burden less than 1%. She had 1 episode of A-fib with ventricular rate of 150 that was asymptomatic. Ventricular ectopy activity burden was less than 1%. Patient had 5 complex nonsustained V. tach that was asymptomatic. Symptoms of chest pressure, shortness of breath, did not correlate with any specific arrhythmia. 12/08 Patient seen and examined on the observation unit. She denies having chest pain no shortness of breath. She has been up to the bathroom a couple times without pain. She denies any recent medication changes. She states her weight is down. No lower extremity edema. Blood pressure 147/83, heart rate 92, pulse ox 97% on room air. Repeat blood work reveals potassium 4.1, creatinine 0.83. Echocardiogram results have been reviewed by Dr. Vazquez with the patient noticed drop in EF and valvular heart disease. Patient was tentatively scheduled for Lexiscan stress test for Monday and patient is agreeable to go forward with a KEVIN and cardiac catheterization on Monday instead. Patient is tearful and upset about the information provided. 1 dose of Xanax ordered. Physical examination: Gen: This is a 59-year-old female in no acute distress VS: reviewed HEENT: Head is atraumatic, normocephalic. Pupils equal, round. Sclerae is anicteric. NECK: Supple. No JVD. LUNGS: Clear to auscultation. No wheezes or rhonchi. No intercostal retractions. HEART: Regular rate and rhythm. No murmur. ABDOMEN: Soft No tenderness. EXTREMITIES: No pedal edema. No calf tenderness. NEUROLOGICAL: Patient is awake, alert and oriented x3. Assessment: Atypical chest pain, acute coronary syndrome ruled out History of coronary artery disease with previous stenting most recently in December 2023 Paroxysmal atrial fibrillation on Eliquis, currently in sinus rhythm Hypertension Dyslipidemia Valvular heart disease with severe mitral valve regurgitation, mild aortic stenosis, moderate to severe aortic regurgitation, possible severe aortic in sufficiency Cardiomyopathy with drop in EF to 35 to 40% and previously was normal, probably ischemic Plan: Continue patient's home cardiac medications Continue the addition of losartan 25 mg daily Patient will be scheduled for KEVIN and cardiac catheterization on Monday Hold Eliquis for cardiac catheterization N.p.o. after midnight Further recommendations to follow based upon clinical course Nurse practitioner note has been reviewed, I agree with documented findings and plan of care. Patient was seen and examined. Objective - Vital Signs Vital signs: Vital Signs Temp 97.7 F 12/08/24 07:07 Pulse 92 12/08/24 07:07 Resp 17 12/08/24 07:07 BP 147/83 12/08/24 07:07 Pulse Ox 97 12/08/24 07:07 FiO2 Intake & Output 12/07/24 12/08/24 12/08/24 18:59 06:59 18:59 Intake Total 118 Balance 118 Weight 90.718 kg Intake: Oral 118 Other: Voiding Method Indwelling Catheter Toilet # Voids 2 - Labs CBC & Chem 7: 12/06/24 15:19 12/08/24 10:12
--- NOTE | 2024-12-08 13:24 | P.PN ---
Subjective Progress Note Date: 12/08/24 patient is a 59-year-old lady with past medical history significant for CHF, hypertension, hyperlipidemia who presented to the ER because of shortness of breath. Patient stated that she was all right yesterday when started noticing shortness of breath that was sudden onset, shortness of breath was present at rest as on exertion, states she is unable to walk more than 10-15 steps. Patient was also been noticing chest pressure that is intermittent, central, nonradiating, no aggravating or alleviating factors associated with this chest pressure. Patient is complaining of orthopnea. No complaint of PND. Patient denies any palpitation. There is no complaint of orthopnea or PND. Denies any nausea, vomiting abdominal pain. Patient denies any complaint of dizziness. There is no complaint of headache. Because of the symptoms, patient was brought to the ER Initial lab work done in the ER showed CBC 8.37, hemoglobin 14.2, platelet count 179, sodium 139, potassium 3.6, BUN 20, creatinine 1.08, glucose 108 troponin 0.012 EKG done in the ER showed heart rate of 77, no ST segment elevation or d epression seen, no T-wave inversions seen. Chest x-ray done in the ER showed borderline heart size and COPD, interstitial prominence which could reflect a prominent complaint of chronic bronchitis or superimposed acute bronchitis Patient admitted to internal medicine service 12/08. Patient seen examined. 2D echo reveals EF of 35 to 40%, moderate to severe mitral regurgitation, mild aortic stenosis, moderate to severe aortic regurgitation with holodiastolic flow reversal in the descending aorta concerning for severe aortic insufficiency. Denies any chest pain. Denies shortness of breath REVIEW OF SYSTEMS: CONSTITUTIONAL: No fever, no malaise,. CARDIOVASCULAR: No chest pain, no palpitations, no syncope. PULMONARY: No shortness of breath, no cough, GASTROINTESTINAL: No diarrhea, no nausea, no vomiting, no abdominal pain. NEUROLOGICAL: No headaches, no weakness, PHYSICAL EXAMINATION: GENERAL: The patient is alert and oriented x3, not in any acute distress. Well developed, well nourished. HEENT: Pupils are round and equally reacting to light. EOMI. No scleral icterus. No conjunctival pallor. Normocephalic, atraumatic. No pharyngeal erythema. No thyromegaly. CARDIOVASCULAR: S1 and S2 present. No murmurs, rubs, or gallops. PULMONARY: Chest is clear to auscultation, no wheezing or crackles. ABDOMEN: Soft, nontender, nondistended, normoactive bowel sounds. No palpable organomegaly. MUSCULOSKELETAL: No joint swelling or deformity. EXTREMITIES: No cyanosis, clubbing, or pedal edema. NEUROLOGICAL: Gross neurological examination did not reveal any focal deficits. SKIN: No rashes. Assessment and plan Chest pain, rule out acute cord syndrome Acute COPD exacerbation Hypertension Hyperlipidemia History of coronary artery disease with previous stenting most recently in December 2023 Paroxysmal atrial fibrillation on Eliquis, currently in sinus rhythm Valvular heart disease with severe mitral valve regurgitation, mild aortic stenosis, moderate to severe aortic regurgitation, possible severe aortic insufficiency Cardiomyopathy with drop in EF to 35 to 40% and previously was normal History of tobacco addiction Monitor vital signs Monitor CBC Monitor CMP Continue telemetry monitoring Trend troponin Continue aspirin, Lipitor Continue Imdur Continue losartan Continue Lopressor Continue breathing treatments Continue IV Solu-Medrol cardiology following, planning KEVIN and cardiac cath in the morning Labs and medication were reviewed.. Continue same treatment. Continue with symptomatic treatment. Resume home medication. Monitor labs and vitals. DVT and GI prophylaxis. Further recommendations as per clinical course of the patient Dictation was produced using [employer] dictation software. please excuse any grammatical, word or spelling errors. Objective - Vital Signs Vital signs: Vital Signs Temp 97.7 F 12/08/24 07:07 Pulse 92 12/08/24 07:07 Resp 17 12/08/24 07:07 BP 147/83 12/08/24 07:07 Pulse Ox 97 12/08/24 07:07 FiO2 Intake & Output 12/07/24 12/08/24 12/08/24 18:59 06:59 18:59 Intake Total 118 Balance 118 Weight 90.718 kg Intake: Oral 118 Other: Voiding Method Indwelling Catheter Toilet # Voids 2 - Labs CBC & Chem 7: 12/06/24 15:19 12/08/24 10:12 Labs: Abnormal Lab Results - Last 24 Hours (Table) 12/08/24 Range/Units 10:12 Chloride 108 H (98-107) mmol/L Glucose 109 H (74-99) mg/dL
[2024-12-08] MEDS: CLOPIDOGREL 75 MG TAB PO SCH (14:57)
[2024-12-08] MEDS: FUROSEMIDE 40 MG TAB PO SCH (14:57)
[2024-12-08] MEDS ORDERED: BENZOCAINE SPRAY 1 EACH MM SCH (16:00)
[2024-12-08] MEDS: ALPRAZolam 0.5 MG TAB PO PRN (17:58)
[2024-12-09] MEDS ORDERED: REGADENOSON 0.4 MG/5 ML SYRINGE IV PRN (06:00)
[2024-12-09] MEDS ORDERED: AMINOPHYLLINE 500 MG/20 ML VIAL IV PRN (06:00)
[2024-12-09] MEDS ORDERED: CAFFEINE CITRATE 60 MG/3 ML VIAL IV PRN (06:00)
[2024-12-09] MEDS: ATORVASTATIN 80 MG TAB PO ONE (06:17)
[2024-12-09] MEDS: ASPIRIN 325 MG TAB PO ONE (06:17)
[2024-12-09] MEDS ORDERED: HEPARIN SODIUM,PORCINE (1 ML) 2,500 UNIT in SODIUM CHLORIDE 0.9% 250 ML IRRIGATION PRN (07:00)
[2024-12-09] MEDS ORDERED: HEPARIN SODIUM,PORCINE 10,000 UNIT in SODIUM CHLORIDE 0.9% 1,000 ML IRRIGATION PRN (07:00)
[2024-12-09 08:11] LABS: BUN/Creat Ratio 17.67 Ratio (12.00-20.00); Blood Urea Nitrogen 21.2 mg/dL (9.0-27.0); Calcium 9.5 mg/dL (8.7-10.3); Carbon Dioxide 25.9 mmol/L (21.6-31.8); Chloride 104 mmol/L (96-109); Glucose 107 mg/dL (70-110); Potassium 4.1 mmol/L (3.5-5.5); Sodium 141 mmol/L (135-145)
[2024-12-09] MEDS: LOSARTAN 50 MG TAB PO SCH (09:44)
[2024-12-09] MEDS: methylPREDNISolone SOD SUCCI 40 MG/ML 1 ML VIAL IV SCH (09:45)
[2024-12-09] MEDS: ONDANSETRON ODT 4 MG TAB PO PRN (09:45)
[2024-12-09] MEDS: fentaNYL (PF) 50 MCG/1 ML VIAL IVP ONE (12:12)
[2024-12-09] MEDS: BENZOCAINE SPRAY 1 EACH MM ONE ×3 (12:12→14:13)
[2024-12-09] MEDS: MIDAZOLAM 2 MG/2 ML VIAL IVP ONE ×3 (12:12→12:48)
[2024-12-09] MEDS: SODIUM CHLORIDE 0.9% 1,000 ML IV ONE ×2 (12:33→13:00)
--- NOTE | 2024-12-09 12:33 | P.PCN ---
Date of Procedure: 12/09/24 Description of Procedure: Indication: Aortic regurgitation Procedure Description: After explaining the procedure to the patient, it's risk and complications, blood pressure, heart rate and O2 saturation were monitored. The throat was sprayed with Cetacaine. Patient received 3 mg intravenous Versed, 50 mcg intravenous fentanyl. The probe was introduced into the esophagus without difficulty. Images were obtained. Following that, the probe was removed. There was no immediate complication. Findings: Left atrial size is dilated, left atrial appendage is normal. Left ventricular systolic function is mildly to moderately impaired with global hypokinesis, ejection fraction estimated at 40 to 45%. The aortic valve the tricuspid valve, calcified with preserved opening. Mild thickening of the mitral valve leaflets was noted. Tricuspid valve appears to be normal. Descending thoracic aorta appears to be normal. Contrast bubble study revealed no shunting across the interatrial septum with Valsalva maneuver. No pericardial effusion was noted. Doppler: Pulse wave and color Doppler were obtained, and revealed moderate mitral with severe central aortic regurgitation with mild tricuspid regurgitation. There was no shunting by color Doppler study across the interatrial septum. Conclusion: 1. Dilated left atrium 2. Mild to moderate global hypokinesis of the left ventricle 3. Severe aortic regurgitation with a tricuspid aortic valve 4. Moderate mitral regurgitation 5. No shunting across the interatrial septum 6. Normal appearance of the descending thoracic aorta Duration of sedation: 15 minutes.
--- NOTE | 2024-12-09 12:38 | P.PN ---
Subjective Progress Note Date: 12/09/24 patient is a 59-year-old lady with past medical history significant for CHF, hypertension, hyperlipidemia who presented to the ER because of shortness of breath. Patient stated that she was all right yesterday when started noticing shortness of breath that was sudden onset, shortness of breath was present at rest as on exertion, states she is unable to walk more than 10-15 steps. Patient was also been noticing chest pressure that is intermittent, central, nonradiating, no aggravating or alleviating factors associated with this chest pressure. Patient is complaining of orthopnea. No complaint of PND. Patient denies any palpitation. There is no complaint of orthopnea or PND. Denies any nausea, vomiting abdominal pain. Patient denies any complaint of dizziness. There is no complaint of headache. Because of the symptoms, patient was brought to the ER Initial lab work done in the ER showed CBC 8.37, hemoglobin 14.2, platelet count 179, sodium 139, potassium 3.6, BUN 20, creatinine 1.08, glucose 108 troponin 0.012 EKG done in the ER showed heart rate of 77, no ST segment elevation or d epression seen, no T-wave inversions seen. Chest x-ray done in the ER showed borderline heart size and COPD, interstitial prominence which could reflect a prominent complaint of chronic bronchitis or superimposed acute bronchitis Patient admitted to internal medicine service 12/08. Patient seen examined. 2D echo reveals EF of 35 to 40%, moderate to severe mitral regurgitation, mild aortic stenosis, moderate to severe aortic regurgitation with holodiastolic flow reversal in the descending aorta concerning for severe aortic insufficiency. Denies any chest pain. Denies shortness of breath 12/09. Patient seen and examined. Currently n.p.o., going for cardiac cath and KEVIN today REVIEW OF SYSTEMS: CONSTITUTIONAL: No fever, no malaise,. CARDIOVASCULAR: No chest pain, no palpitations, no syncope. PULMONARY: No shortness of breath, no cough, GASTROINTESTINAL: No diarrhea, no nausea, no vomiting, no abdominal pain. NEUROLOGICAL: No headaches, no weakness, PHYSICAL EXAMINATION: GENERAL: The patient is alert and oriented x3, not in any acute distress. Well developed, well nourished. HEENT: Pupils are round and equally reacting to light. EOMI. No scleral icterus. No conjunctival pallor. Normocephalic, atraumatic. No pharyngeal erythema. No thyromegaly. CARDIOVASCULAR: S1 and S2 present. No murmurs, rubs, or gallops. PULMONARY: Chest is clear to auscultation, no wheezing or crackles. ABDOMEN: Soft, nontender, nondistended, normoactive bowel sounds. No palpable organomegaly. MUSCULOSKELETAL: No joint swelling or deformity. EXTREMITIES: No cyanosis, clubbing, or pedal edema. NEUROLOGICAL: Gross neurological examination did not reveal any focal deficits. SKIN: No rashes. Assessment and plan Chest pain, rule out acute cord syndrome Acute COPD exacerbation Hypertension Hyperlipidemia History of coronary artery disease with previous stenting most recently in December 2023 Paroxysmal atrial fibrillation on Eliquis, currently in sinus rhythm Valvular heart disease with severe mitral valve regurgitation, mild aortic stenosis, moderate to severe aortic regurgitation, possible severe aortic insufficiency Cardiomyopathy with drop in EF to 35 to 40% and previously was normal History of tobacco addiction Monitor vital signs Monitor CBC Monitor CMP Continue telemetry monitoring Trend troponin Continue aspirin, Lipitor Continue Imdur Continue losartan Continue Lopressor Continue breathing treatments Continue IV Solu-Medrol cardiology following, planning KEVIN and cardiac cath today Labs and medication were reviewed.. Continue same treatment. Continue with symptomatic treatment. Resume home medication. Monitor labs and vitals. DVT and GI prophylaxis. Further recommendations as per clinical course of the patient Dictation was produced using [employer] dictation software. please excuse any grammatical, word or spelling errors. Objective - Vital Signs Vital signs: Vital Signs Temp 97.9 F 12/09/24 07:00 Pulse 64 12/09/24 07:00 Resp 17 12/09/24 07:00 BP 127/82 12/09/24 07:00 Pulse Ox 98 12/09/24 07:00 FiO2 Intake & Output 12/08/24 12/09/24 12/09/24 18:59 06:59 18:59 Other: # Voids 3 2 - Labs CBC & Chem 7: 12/06/24 15:19 12/09/24 03:41 Labs: Abnormal Lab Results - Last 24 Hours (Table) 12/08/24 12/09/24 Range/Units 10:12 03:41 Chloride 108 H (98-107) mmol/L Est GFR (CKD-EPI) 52 L (>=60) Glucose 109 H (74-99) mg/dL
[2024-12-09] MEDS: hydrALAZINE HCL 20 MG/ML 1 ML VIAL IVP ONE (12:49)
[2024-12-09] MEDS: VERAPAMIL 2.5 MG/ML 4 ML VIAL INTRAARTER ONE (12:59)
[2024-12-09] MEDS: LIDOCAINE 2% (PF) 20 MG/ML 5 ML VIAL SQ ONE (12:59)
[2024-12-09] MEDS: HEPARIN SODIUM,PORCINE 10,000 UNIT in SODIUM CHLORIDE 0.9% 1,000 ML IRRIGATION ONE (13:00)
[2024-12-09] MEDS: HEPARIN SODIUM,PORCINE (1 ML) 2,500 UNIT in SODIUM CHLORIDE 0.9% 250 ML IRRIGATION ONE (13:00)
[2024-12-09] MEDS: SODIUM CHLORIDE 0.9% 250 ML IV ONE (13:01)
[2024-12-09] MEDS: HEPARIN SODIUM 1,000 UN/ML (10ML VL) IVP ONE (13:15)
[2024-12-09 13:23] LABS: O2 Sat Blood Gas 82.9 %
[2024-12-09 13:25] LABS: O2 Sat Blood Gas 99.4 %
[2024-12-09 13:27] LABS: O2 Sat Blood Gas 82.6 %
[2024-12-09] MEDS ORDERED: RX INFO: IV CONTRAST WAS GIVEN 1 EACH MISC MISCELLANE PRN (13:36)
[2024-12-09] MEDS: IOPAMIDOL-370 100ML BTL INTRATHECA ONE (13:39)
--- NOTE | 2024-12-09 13:47 | P.CARDCATH ---
Date of Procedure: 12/09/24 Description of Procedure: Cardiac Catheterization: The patient is a 59-year-old female with known history of multivessel stenting, history of hypertension, hyperlipidemia, chronic tobacco use and aortic valve disease who presented with symptoms of chest discomfort and progressive dyspnea and her echocardiogram showed a drop in her ejection fraction with worsening of her aortic regurgitation. Recommendations were made regarding cardiac catheterization, the risks and the complications were discussed with the patient who is in full understanding and agreement. Procedure Description: Patient was brought to [facility] in fasting semi-sedated state after receiving Fentanyl and Benadryl achieiving moderate conscious sedated state. Using Xylocaine Anesthesia and modified Seldinger technique, a 6-Maori sheath was introduced in the right radial artery . The venous access sheath in the right basilic vein was exchanged for a 6 Maori sheath. Right heart catheterization was performed using [place]-Tom catheter. Multiple pressure and samples were obtained. Cardiac output by thermodilution was calculated. Subsequently, selective coronary angiography was performed using a 5-Maori 3.5 bend Nolan catheter. Multiple views of the coronary artery including hemiaxial views were obtained. The 5 Maori pigtail catheter was used to cross the aortic valve and LVEDP was calculated. An SALVADOREAN view of the ascending aorta was performed. Following that, catheter and sheath were removed. Hemostasis was obtained with deployment of vascular band . There was no immediate complication. Patient was returned to room in stable condition. Of note, the patient received a total of 5000 units of intravenous heparin as well as intra-arterial verapamil. Findings: Left main: This is a short size vessel, bifurcating into LAD and left circumflex, left main has no obstructive disease LAD: This is a large size vessel, reaching to the apex with a wrap around the apex segment. Giving rise to 2 small diagonal branch. The proximal LAD has 10 to 20% plaque. The mid segment of the LAD at the stented area has no sig nificant in-stent restenosis with mild intimal disease of 20%. There is a 30 to 40% plaque in the distal LAD. Left circumflex: This is a large nondominant vessel giving rise to the 2 obtuse marginal branch. Both stented segment and the OM 1 and 2 are patent. There is a 50 to 60% plaque at the bifurcation of the OM1 into with RUSH-3 flow distally and no progression of disease compared to 2023. RCA: This is a large dominant vessel, bifurcating distally to PDA and PLV. The ostium of the RCA has a 40 to 50%. The mid RCA has another 40% plaque the stented segment is patent. The PLV has a 50 to 60% plaque, the rest of the vessel has no high-grade stenosis Left Ventriculogram: Not performed. Aortogram performed in the SALVADOREAN view and revealed 4+ aortic regurgitation with a tricuspid aortic valve Hemodynamics: Right atrial saturation 83%, pulmonary artery saturation 83%, arterial saturation 99%. Cardiac output by thermodilution 6.1 L/min and by Sherry 8.7 L/min. Pulmonary artery systolic pressure of 14 with a diastolic of 4 and a mean of 8 mmHg. Pulmonary capillary wedge pressure A-wave of 10, V wave of 8 with a mean of 6 mmHg. Right ventricle systolic pressure of 18 with a diastolic of 4 mmHg. Right atrium A wave of 7 with a V wave of 6 with a mean of 3 mmHg. There was no gradient across the aortic valve. Left ventricular end-diastolic pressure of 3 to 5 mmHg. Conclusion: 1. Patent stent in the LAD, OM1 into and mid RCA 2. Moderate disease in the bifurcation of the OM1 into an ostial RCA with no progression compared to 2023 3. Low filling pressures 4. 4+ aortic regurgitation Recommendations: The patient will continue in maximizing medical therapy for her cardiomyopathy and will be evaluated for the need to undergo aortic valve surgery. The findings and the recommendations were discussed with the patient and the family and they were in full understanding and agreement. Duration of sedation is 33 minutes.
[2024-12-09] MEDS: SODIUM CHLORIDE 0.9% 1,000 ML IV SCH (14:14)
[2024-12-09 15:39] LABS: Carbon Dioxide 18 mmol/L (22-30); Chloride 108 mmol/L (98-107); Glucose 130 mg/dL (74-99); Sodium 139 mmol/L (137-145)
[2024-12-09 15:40] LABS: African American GFR (CKD) 72 (>60 ml/min/1.73 sqM); Anion Gap 13 mmol/L; Blood Urea Nitrogen 22 mg/dL (7-17); Calcium 9.6 mg/dL (8.4-10.2); Non-African American GFR(CKD) 63 (>60 ml/min/1.73 sqM)
[2024-12-10 07:55] VITALS: BP 142/88; PULSE 77; RESP 18; TEMP 98.3
--- NOTE | 2024-12-10 09:12 | CDI ---
Documentation Clarification Form Date: 12/10/2024 08:41:05 AM From: Macy Izquiredo RN CCDS Phone: [phone] Admit Date: 12/06/2024 05:12:00 PM Patient Name: Radha Dodd Visit Number: [id number] Discharge Date: ATTENTION: The Clinical Documentation Specialists (CDI) and [facility] Coding Staff appreciate your assistance in clarifying documentation. Please respond to the clarification below the line at the bottom and electronically sign. The CDI & [facility] Coding staff will review the response and follow-up if needed. Please note: Queries are made part of the Legal Health Record. If you have any questions, please contact the author of this message via ITS. Doctor: Umair Blackman Your patient has the documented diagnosis of unspecified CHF 12/07, . Additional information regarding the type, acuity of CHF is requested. History/Risk Factors: 59 y/o female presents to the ED with sudden onset of shortness of breath at rest and exertion unable to walk more than 10-15 steps Clinical Indicators: VS/Pulse OX, 12/06: B/P 200/100 HR 81 Temp 98.1f oral, RR 17, SpO2 98% ra bmi 33.3kg BNP, 12/06 :111 Echocardiogram Results 12/07: Left ventricular ejection fraction 35 40% Moderate to severe mitral regurgitation mild aortic stenosis Moderate to severe atortic regurgitation with holodiastolic flow reversal in the descending aorta concerning for severe aortic insufficiency. Chest X Ray , 12/06: Borderline heart size and COPD. There is interstitial prominence which could reflect a prominent component of chronic bronchitis or superimposed acute bronchitis Treatment: 12/08 Lasix po daily, 12/07 Lopressor po bid, 12/10 Aldactone po daily In your professional opinion, can you please clarify the acuity and type of CHF if known? [ x ] Chronic Systolic Heart Failure (reduced EF) [ ] Other, please specify [ ] Unable to determine (Template Last Revised: August 2020) EUGENIAD
[2024-12-10] MEDS: SPIRONOLACTONE 25 MG TAB PO SCH (09:43)
[2024-12-10] MEDS: APIXABAN 5 MG TAB PO SCH (09:43)
[2024-12-10] MEDS: FUROSEMIDE 20 MG TAB PO SCH (09:43)
--- NOTE | 2024-12-10 13:21 | P.DS ---
Providers Date of admission: 12/06/24 17:12 Expected date of discharge: 12/10/24 Attending physician: Chung Reich MD Consults: 12/06/24 17:09 Consult Physician Urgent Consulting Provider: Jose A Conroy Consult Reason/Comments: cp Do you want consulting provider notified?: Yes Primary care physician: Physician Nonstaff Hospital Course: Discharge diagnoses; Chest pain Acute COPD exacerbation Aortic regurg Hypertension Hyperlipidemia History of coronary artery disease with previous stenting most recently in December 2023 Paroxysmal atrial fibrillation on Eliquis, currently in sinus rhythm Valvular heart disease with severe mitral valve regurgitation, mild aortic stenosis, moderate to severe aortic regurgitation, possible severe aortic insufficiency Cardiomyopathy with drop in EF to 35 to 40% and previously was normal History of tobacco addiction Hospital course; patient is a 59-year-old lady with past medical history significant for CHF, hypertension, hyperlipidemia who presented to the ER because of shortness of breath. Patient stated that she was all right yesterday when started noticing shortness of breath that was sudden onset, shortness of breath was present at rest as on exertion, states she is unable to walk more than 10-15 steps. Patient was also been noticing chest pressure that is intermittent, central, nonradiating, no aggravating or alleviating factors associated with this chest pressure. Patient is complaining of orthopnea. No complaint of PND. Patient denies any palpitation. There is no complaint of orthopnea or PND. Denies any nausea, vomiting abdominal pain. Patient denies any complaint of dizziness. There is no complaint of headache. Because of the symptoms, patient was brought to the ER Initial lab work done in the ER showed CBC 8.37, hemoglobin 14.2, platelet count 179, sodium 139, potassium 3.6, BUN 20, creatinine 1.08, glucose 108 troponin 0.012 EKG done in the ER showed heart rate of 77, no ST segment elevation or depr ession seen, no T-wave inversions seen. Chest x-ray done in the ER showed borderline heart size and COPD, interstitial prominence which could reflect a prominent complaint of chronic bronchitis or superimposed acute bronchitis Patient admitted to internal medicine service 12/08. Patient seen examined. 2D echo reveals EF of 35 to 40%, moderate to severe mitral regurgitation, mild aortic stenosis, moderate to severe aortic regurgitation with holodiastolic flow reversal in the descending aorta concerning for severe aortic insufficiency. Denies any chest pain. Denies shortness of breath 12/09. Patient seen and examined. Currently n.p.o., going for cardiac cath and KEVIN today 12/10. Patient seen examined. Patient had cardiac cath done showed Patent stent in the LAD, OM1 into and mid RCA,. Moderate disease in the bifurcation of the OM1 into an ostial RCA with no progression compared to 2023. KEVIN done showed Severe aortic regurgitation with a tricuspid aortic valve Moderate mitral regu rgitation .cardiology recommend maximum medical therapy. PHYSICAL EXAMINATION: GENERAL: The patient is alert and oriented x3, not in any acute distress. Well developed, well nourished. HEENT: Pupils are round and equally reacting to light. EOMI. No scleral icterus. No conjunctival pallor. Normocephalic, atraumatic. No pharyngeal erythema. No thyromegaly. CARDIOVASCULAR: S1 and S2 present. No murmurs, rubs, or gallops. PULMONARY: Chest is clear to auscultation, no wheezing or crackles. ABDOMEN: Soft, nontender, nondistended, normoactive bowel sounds. No palpable organomegaly. MUSCULOSKELETAL: No joint swelling or deformity. EXTREMITIES: No cyanosis, clubbing, or pedal edema. NEUROLOGICAL: Gross neurological examination did not reveal any focal deficits. SKIN: No rashes. Dictation was produced using [employer] dictation software. please excuse any grammatical, word or spelling errors. Plan - Discharge Summary Discharge Rx Participant: No New Discharge Prescriptions: New Spironolactone [Aldactone] 25 mg PO DAILY #30 tab Losartan [Cozaar] 50 mg PO DAILY 30 Days #30 tab Furosemide [Lasix] 20 mg PO DAILY 30 Days #30 tab Continue QUEtiapine [SEROquel] 500 mg PO HS Atorvastatin [Lipitor] 40 mg PO HS #90 tab methocarbamoL [Robaxin] 1,500 mg PO TID Clopidogrel [Plavix] 75 mg PO DAILY #90 tablet Metoprolol Tartrate 25 mg PO BID Semaglutide [Wegovy] 0.5 mg SQ FR@0800 Omeprazole [PriLOSEC] 20 mg PO BID Fluticasone Nasal [place] [Flonase Nasal [place]] 2 spr EA NOSTRIL BID busPIRone HCL 15 mg PO QID Apixaban [Eliquis] 5 mg PO BID #90 tab Isosorbide Mononitrate [Isosorbide Mononitrate ER] 30 mg PO DAILY Ezetimibe [Zetia] 10 mg PO DAILY Ondansetron Odt [Zofran ODT] 4 mg PO Q8H PRN #20 tab PRN Reason: Nausea Desvenlafaxine Succinate [Pristiq] 100 mg PO HS Discontinued Furosemide [Lasix] 40 mg PO DAILY Ibuprofen [Motrin] 600 mg PO Q6HR PRN PRN Reason: Pain Discharge Medication List Fluticasone Nasal [place] [Flonase Nasal [place]] 2 spr EA NOSTRIL BID 09/14/22 [History] Omeprazole [PriLOSEC] 20 mg PO BID 09/14/22 [History] QUEtiapine [SEROquel] 500 mg PO HS 09/14/22 [History] busPIRone HCL 15 mg PO QID 09/14/22 [History] Atorvastatin [Lipitor] 40 mg PO HS #90 tab 09/18/22 [Rx] methocarbamoL [Robaxin] 1,500 mg PO TID 02/02/23 [History] Apixaban [Eliquis] 5 mg PO BID #90 tab 02/03/23 [Rx] Isosorbide Mononitrate [Isosorbide Mononitrate ER] 30 mg PO DAILY 06/26/23 [History] Clopidogrel [Plavix] 75 mg PO DAILY #90 tablet 06/28/23 [Rx] Metoprolol Tartrate 25 mg PO BID 12/15/23 [History] Ezetimibe [Zetia] 10 mg PO DAILY 09/07/24 [History] Semaglutide [Wegovy] 0.5 mg SQ FR@0800 09/07/24 [History] Ondansetron Odt [Zofran ODT] 4 mg PO Q8H PRN #20 tab 09/09/24 [Rx] Desvenlafaxine Succinate [Pristiq] 100 mg PO HS 12/06/24 [History] Furosemide [Lasix] 20 mg PO DAILY 30 Days #30 tab 12/10/24 [Rx] Losartan [Cozaar] 50 mg PO DAILY 30 Days #30 tab 12/10/24 [Rx] Spironolactone [Aldactone] 25 mg PO DAILY #30 tab 12/10/24 [Rx] Follow up Appointment(s)/Referral(s): Ben Meyer MD [STAFF PHYSICIAN] - 1 Week Nonstaff,Physician [Primary Care Provider] - 1-2 days Discharge Disposition: HOME SELF-CARE
--- NOTE | 2024-12-10 13:46 | P.PN ---
Subjective HISTORY OF PRESENT ILLNESS: This is a 59-year-old female patient of Dr. Meyer with past medical history of coronary artery disease status post stent, paroxysmal atrial fibrillation on Eliquis, hypertension, dyslipidemia, mitral valve regurgitation, moderate mitral insufficiency, PVCs, intermittent claudication, remote history of tobacco use. We have been asked to evaluate the patient for chest pain. Patient states that she had a fluttering sensation in her chest as well as a stabbing sensation of pain. She developed shortness of breath and felt like she could not catch her breath. She denies any chest pain at this time. But still feels a fluttering in her chest. The pain was a sharp and squeezing type pain. She thinks this pain is similar to what she had about a year ago when she required a stent placement. She denies any cough no fever or chills. She denies any blood in her stool or urine. Pain is located in the left upper lateral area with no tenderness. She denies being told she has asthma or COPD. Blood pressure 18 7/97, heart rate 88, pulse ox 97% on room air. Patient has Nitropaste on with complaints of headache and this will be discontinued. Blood pressure 188/93, heart rate 96, pulse ox 98% on room air. Regarding blood pressure, patient states her blood pressure normally at home at best is 138/68. She states she is taking all of her medications as directed. Patient is seen today in the emergency center waiting for a bed on the observation unit. -EKG: Sinus rhythm with no acute ST-T wave changes. -Chest x-ray: Chronic bronchitis. COPD. Borderline heart size. -Echocardiogram reveals EF of 35 to 40%, moderate to severe mitral regurgitation, mild aortic stenosis, moderate to severe aortic regurgitation with holodiastolic flow reversal in the descending aorta concerning for severe aortic insufficiency. -Laboratory studies: CBC, INR normal, troponin negative x 3. Triglycerides 147, cholesterol 159, LDL 85, HDL 44. BUN 20 creatinine 1.08. Magnesium 1.6. Liver function test within normal limits. -Home cardiac medications: Eliquis 5 mg twice daily, atorvastatin 40 mg at bedtime, Plavix 75 mg daily, Zetia 10 mg daily, Lasix 40 mg daily, isosorbide mononitrate 30 mg daily, metoprolol tartrate 25 mg twice daily. Patient is also on Wegovy. - Most recent cardiac catheterization performed 12/19/2023 revealed severe stenosis in the mid LAD, severe stenosis in the OM1, patent stent in the RCA and OM 2, moderate disease in the ostium of the RCA. Patient underwent successful stenting of the mid LAD with intravascular ultrasound imaging and RUSH III flow. Patient also underwent successful stenting of the OM1 involving the bifurcation with IVUS imaging and RUSH III flow. -Event monitor performed 03/26/2024 - 04/01/2024 revealed baseline rhythm is sinus rhythm running between 57 and 154. Atrial fibrillation burden less than 1%. She had 1 episode of A-fib with ventricular rate of 150 that was asymptomatic. Ventricular ectopy activity burden was less than 1%. Patient had 5 complex nonsustained V. tach that was asymptomatic. Symptoms of chest pressure, shortness of breath, did not correlate with any specific arrhythmia. 12/08 Patient seen and examined on the observation unit. She denies having chest pain no shortness of breath. She has been up to the bathroom a couple times without pain. She denies any recent medication changes. She states her weight is down. No lower extremity edema. Blood pressure 147/83, heart rate 92, pulse ox 97% on room air. Repeat blood work reveals potassium 4.1, creatinine 0.83. Echocardiogram results have been reviewed by Dr. Vazquez with the patient noticed drop in EF and valvular heart disease. Patient was tentatively scheduled for Lexiscan stress test for Monday and patient is agreeable to go forward with a KEVIN and cardiac catheterization on Monday instead. Patient is tearful and upset about the information provided. 1 dose of Xanax ordered. 12/10/2024 Patient is status post cardiac catheterization with Dr. Meyer revealing patent stent in the LAD, OM1 into the mid RCA, moderate disease in the bifurcation of the OM1 into the ostial RCA with no progression compared to 2023, low filling pressures and 4+ aortic regurgitation. She is also status post KEVIN revealing severe aortic regurgitation, moderate mitral regurgitation, and mild to moderate global hypokinesis of left ventricle. Patient examined this morning at bedside. Patient without complaints of chest pain or pressure. She denies shortness of breath. Vital signs are stable. She has been resumed on Eliquis. PHYSICAL EXAM: VITAL SIGNS: Reviewed. GENERAL: Well-developed in no acute distress. NECK: Supple. No JVD or thyromegaly LUNGS: Respirations even and unlabored. Lungs essentially clear to auscultation bilaterally. HEART: Regular rate and rhythm. S1 and S2 heard. Systolic murmur noted. EXTREMITIES: Normal range of motion. No clubbing or cyanosis. Peripheral pulses intact. No lower extremity edema ASSESSMENT: Atypical chest pain, status post cardiac catheterization as above History of coronary artery disease with previous stenting most recently in December 2023 Paroxysmal atrial fibrillation on Eliquis, currently in sinus rhythm Moderate mitral regurgitation Severe aortic regurgitation Ischemic cardiomyopathy Hypertension Dyslipidemia PLAN: Continue current cardiac medications Eliquis, Lipitor, Plavix, Zetia, Lasix, Imdur, losartan, metoprolol, and Aldactone Patient is stable for discharge home today from a cardiac standpoint She has to follow-up postdischarge with Dr. Meyer Nurse practitioner note has been reviewed by physician. Signing provider agrees with the documented findings, assessment, and plan of care documented by [employer] as a scribe. Objective - Vital Signs Vital signs: Vital Signs Temp 98.3 F 12/10/24 07:02 Pulse 77 12/10/24 07:02 Resp 18 12/10/24 07:02 BP 142/88 12/10/24 07:02 Pulse Ox 98 12/10/24 07:02 FiO2 Intake & Output 12/09/24 12/10/24 12/10/24 18:59 06:59 18:59 Intake Total 640 540 480 Balance 640 540 480 Intake: IV 400 Oral 240 540 480 Other: # Voids 2 2 - Labs CBC & Chem 7: 12/06/24 15:19 12/09/24 15:01 Labs: Abnormal Lab Results - Last 24 Hours (Table) 12/09/24 Range/Units 15:01 Chloride 108 H (98-107) mmol/L Carbon Dioxide 18 L (22-30) mmol/L BUN 22 H (7-17) mg/dL Glucose 130 H (74-99) mg/dL
== END 2024-12-10 13:04 | disposition home or self-care (01) | DRG 140 ==
LOC: EC 15:04 → 6NMEDSUR 17:11 → OBSVTOIN 17:12 → 6NMEDSUR 17:58
PROVIDERS: ADMIT Internal Medicine; ATTEND Internal Medicine
PROC: 4A023N6 Measurement of Cardiac Sampling and Pressure, Right Heart, Percutaneous Approach (ICD-10-PCS; principal; 2024-12-09 12:00)
PROC: 4A133B3 Monitoring of Arterial Pressure, Pulmonary, Percutaneous Approach (ICD-10-PCS; 2024-12-09 12:00)
PROC: B24BZZ4 Ultrasonography of Heart with Aorta, Transesophageal (ICD-10-PCS; 2024-12-09 12:00)
PROC: B2111ZZ Fluoroscopy of Multiple Coronary Arteries using Low Osmolar Contrast (ICD-10-PCS; 2024-12-09 12:00)
PROC: 4A1239Z Monitoring of Cardiac Output, Percutaneous Approach (ICD-10-PCS; 2024-12-09 12:00)
PROC: 02HP32Z Insertion of Monitoring Device into Pulmonary Trunk, Percutaneous Approach (ICD-10-PCS; 2024-12-09 12:00)
DX: J44.1 Chronic obstructive pulmonary disease with (acute) exacerbation (principal); I47.20 Ventricular tachycardia, unspecified; I11.0 Hypertensive heart disease with heart failure; I25.5 Ischemic cardiomyopathy; I50.22 Chronic systolic (congestive) heart failure; I08.3 Combined rheumatic disorders of mitral, aortic and tricuspid valves; E78.5 Hyperlipidemia, unspecified; I25.10 Atherosclerotic heart disease of native coronary artery without angina pectoris; I48.0 Paroxysmal atrial fibrillation; Z79.899 Other long term (current) drug therapy; Z79.85 Long-term (current) use of injectable non-insulin antidiabetic drugs; Z79.01 Long term (current) use of anticoagulants; Z79.02 Long term (current) use of antithrombotics/antiplatelets; Z96.652 Presence of left artificial knee joint; Z95.5 Presence of coronary angioplasty implant and graft; Z87.891 Personal history of nicotine dependence; Z82.49 Family history of ischemic heart disease and other diseases of the circulatory system
CPT/HCPCS: 36415; 71046; 80048; 80053; 80061; 82810; 83735; 83880; 84484; 85018; 85025; 85379; 85610; 85730; 93005; 93306; 93312; 93320; 93325; 93458; 93567; 94640; 96374; 99285

== ENCOUNTER → 2025-01-06 | Outpatient (CLI) | payer OTHER ==
--- NOTE | 2025-01-06 10:19 | US ---
EXAMINATION TYPE: US vein mapping BILAT DATE OF EXAM: 01/06/2025 9:03 AM COMPARISON: NONE CLINICAL INDICATION: Female, 59 years old with history of I71.20 PRE-OP VALVE SURGERY; Pre-OP valve s urgery, Preop- Cardiac Surgery TECHNIQUE: Grayscale and color Doppler imaging of the lower extremity venous system. SIDE PERFORMED: Bilateral FINDINGS: DUPLEX FINDINGS: Greater Saphenous: Color flow seen Measurements in mm: Right Greater Saphenous: Groin: 8.5 x 8.1 mm High Thigh: 3.9 x 4.0 mm Mid Thigh: 3.9 x 3.7 mm Above Knee: 3.7 x 4.4 mm Knee: 3.4 x 3.7 mm Below Knee: 2.5 x 2.4 mm Mid Calf: 1.4 x 1.7 mm At Ankle: 2.2 x 2.7 mm Left Greater Saphenous: Groin: 6.7 x 6.6 mm High Thigh: 4.1 x 4.1 mm Mid Thigh: 3.1 x 3.1 mm Above Knee: 2.8 x 3.3 mm Knee: 3.1 x 3.3 mm Below Knee: 2.9 x 3.1 mm Mid Calf: 2.0 x 2.4 mm At Ankle: 1.7 x 2.2 mm IMPRESSION: 1. No evidence for occlusion. 2. GSV measurements listed above. 3. Performing surgeon to determine viability as conduit. [facility], , 01/06/2025 10:17 AM
[2025-01-06 10:25] LABS: Carbon Dioxide 26 mmol/L (22-30); Chloride 109 mmol/L (98-107); Glucose 93 mg/dL (74-99); Potassium 3.7 mmol/L (3.5-5.1); Sodium 143 mmol/L (137-145)
[2025-01-06 10:26] LABS: ALT 15 U/L (4-34); AST 16 U/L (14-36); African American GFR (CKD) 56 (>60 ml/min/1.73 sqM); Albumin 4.5 g/dL (3.5-5.0); Albumin/Globulin Ratio 1.9; Alkaline Phosphatase 66 U/L (38-126); Anion Gap 8 mmol/L; Bilirubin,Unconjugated 0.3 mg/dL (0.0-1.1); Blood Urea Nitrogen 18 mg/dL (7-17); Calcium 9.5 mg/dL (8.4-10.2); Globulin 2.4 g/dL; Non-African American GFR(CKD) 48 (>60 ml/min/1.73 sqM); Total Bilirubin 0.5 mg/dL (0.2-1.3); Total Protein 6.9 g/dL (6.3-8.2)
--- NOTE | 2025-01-06 11:38 | US ---
EXAMINATION TYPE: US carotid duplex BILAT DATE OF EXAM: 01/06/2025 COMPARISON: NONE CLINICAL INDICATION: Female, 59 years old with history of R55 SYNCOPE; Syncope, pre-OP valve surgery Additional History: .... TECHNIQUE: Grayscale, color Doppler and spectral Doppler evaluation of the bilateral carotid systems and vertebral arteries. Indirect Doppler criteria was utilized. FINDINGS: EXAM MEASUREMENTS: RIGHT: Peak Systolic Velocity (PSV) cm/sec ----- Right CCA: 70.9 ----- Right ICA: 122 ----- Right ECA: 178 ICA/CCA ratio: 1.7 RIGHT: End Diastole cm/sec ----- Right CCA: 21.1 ----- Right ICA: 48.3 ----- Right ECA: 21.8 LEFT: Peak Systolic Velocity (PSV) cm/sec ----- Left CCA: 68.4 ----- Left ICA: 112 ----- Left ECA: 74.5 ICA/CCA ratio: 1.6 LEFT: End Diastole cm/sec ----- Left CCA: 20.2 ----- Left ICA: 35.7 ----- Left ECA: 11.3 VERTEBRALS (direction of flow): Right Vertebral: Antegrade Left Vertebral: Antegrade Rhythm: Normal MACHINE BUILDER NOTES: Elevated velocities right ECA, otherwise no significant stenosis visualized Color Doppler imaging shows patency with blood flow throughout the carotid artery. Spectral waveforms are within normal limits. IMPRESSION: No evidence for hemodynamically significant stenosis. Criteria for Assigning % of Stenosis / Diameter reduction (Estimation based on the indirect measurements of the internal carotid artery velocities (ICA PSV). 1. Normal (no stenosis)=ICA PSV < 180 cm/s: ratio < 2.0: ICA EDV<40 cm/s. 2. Less than 50% stenosis=ICA PSV < 180 cm/s: ratio < 2.0: ICA EDV<40 cm/s. 3. 50 to 69% stenosis=ICA PSV of 180 to 230 cm/s: ration 2.0 ? 4.0: ICA EDV 40-100 cm/s. PSV 125-180 cm/sec and ICA/CCA PSV Ratio ? 2.0 is also consistent with 50-69% stenosis 4. Greater than 70% stenosis to near occlusion= ICA PSV > 230 cm/s: ratio > 4.0: ICA EDV > 100 cm/s. 5. Near occlusion= ICA PSV velocities may be low or undetectable: variable ratio and ICA EDV. 6. Total occlusion=unable to detect flow. [facility], , 01/06/2025 11:35 AM
--- NOTE | 2025-01-06 14:31 | CT ---
EXAMINATION TYPE: CT chest wo con DATE OF EXAM: 01/06/2025 10:06 AM COMPARISON: None. CLINICAL INDICATION: Female, 59 years old with history of I71.20 Pre op E10.9 E78.5 I25.10 E83.52 I34 .0 I35.2; H, PRE SURGICAL CHEST TECHNIQUE: Multiple axial images were obtained through the chest. Sagittal and coronal reformats were created for review. MIP was performed on a separate workstation. Contrast used: mL of (None if empty) Oral contrast used: (None if empty) CT DLP: 438.5 mGycm, Automated exposure control for dose reduction was used. FINDINGS: LUNGS/ PLEURA: No focal consolidation, pneumothorax or pleural effusion. AIRWAY: Patent and unremarkable. HEART: Size within normal limits. Severe coronary artery calcifications present. Aortic valve consult ations are present. MEDIASTINUM: No gross evidence of adenopathy. VASCULATURE: No aortic aneurysm. MUSCULOSKELETAL: Mild disc degeneration changes are present throughout the thoracolumbar spine second ulises to osteophyte formation and facet joint arthropathy. Nerve stimulator leads are seen posterior th ecal sac in the mid to lower thoracic spine. Fixation are in the lower cervical spine appears intact. SOFT TISSUES/LYMPH NODES: Unremarkable. LOWER NECK: No significant findings. UPPER ABDOMEN: No significant findings. IMPRESSION: 1. No evidence for acute process. 2. Severe coronary artery atherosclerosis. 3. Mild aortic valve calcifications. [facility], , 01/06/2025 2:29 PM
[2025-01-06 15:42] LABS: Chol/HDL Ratio 3.33 Ratio; LDL Cholesterol,Calculated 75.5 mg/dL (0.0-131.0)
[2025-01-06 16:02] LABS: Hepatitis A Antibody IgM Nonreactive (Nonreactive); Hepatitis B Core IgM Nonreactive (Nonreactive); Hepatitis B Surface Antigen Nonreactive (Nonreactive); Hepatitis C IgG Antibody Nonreactive (Nonreactive)
== END | disposition home or self-care (01) ==
LOC: RADUSWWP 09:27
PROVIDERS: ATTEND Surgery
DX: Z01.810 Encounter for preprocedural cardiovascular examination (principal); I25.10 Atherosclerotic heart disease of native coronary artery without angina pectoris; I08.0 Rheumatic disorders of both mitral and aortic valves
CPT/HCPCS: 71250; 80053; 80061; 80074; 82248; 84443; 93880; 93970